=== PATIENT | female | born 1980 | race Caucasian/White ===

== ENCOUNTER 2016-09-17 13:23 | Emergency (ER) | payer MEDICAID ==
[2016-09-17 13:47] VITALS: BP 134/82
--- NOTE | 2016-09-17 13:54 | EDM.PDOC ---
ED HPI ENT - General Chief Complaint: ENT Problem Stated Complaint: RT EAR HURTS Time Seen by Provider: 09/17/16 13:36 Source of Information: Reports: Patient History Limitations: Reports: No limitations - History of Present Illness INITIAL COMMENTS - FREE TEXT/NARRATIVE: History of present illness: [35-year-old female coming in with complaints of right-sided ear pain. Patient indicates her whole jaw hurts and it radiates down into her neck.] Review of systems: As per history of present illness and below otherwise all systems reviewed and negative. Past medical history: As per history of present illness and as reviewed below otherwise noncontributory. Surgical history: As per history of present illness and as reviewed below otherwise noncontributory. Social history: No reported history of drug or alcohol abuse. Family history: As per history of present illness and as reviewed below otherwise noncontributory. Physical exam: HEENT: Atraumatic, normocephalic, pupils reactive, negative for conjunctival pallor or scleral icterus, mucous membranes moist right TM slightly reddened without bulging and continues to have light reflex small amount of cerumen noted to be pushing against the TM, throat clear, neck supple, nontender, trachea midline. Lungs: Clear to auscultation, breath sounds equal bilaterally, chest nontender. Heart: S1S2, regular, negative for clicks, rubs, or JVD. Abdomen: Soft, nondistended, nontender. Negative for masses or hepatosplenomegaly. Negative for costovertebral tenderness. Pelvis: Stable nontender. Genitourinary: Deferred. Rectal: Deferred. Extremities: Atraumatic, negative for cords or calf pain. Neurovascular unremarkable. Neuro: Awake, alert, oriented. Cranial nerves II through XII unremarkable. Cerebellum unremarkable. Motor and sensory unremarkable throughout. Exam nonfocal. Patient has numerous fractured teeth and fillings and has some amount of bilateral edema in her lower jaw, patient indicates any palpation to the jaw is painful also is unable to cooperate with the full quality oral exam due to inability/unwillingness to open mouth. Patient did specifically ask for Hollister for pain which is concerning secondary to her presentation seems to be diffuse and evolving during the exam. Diagnostics: [] Therapeutics: [] Impression: []-Right otitis externa, dental caries with possible abscess] Plan: [Antibiotics followup with] Definitive disposition and diagnosis as appropriate pending reevaluation and review of above. 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 Musculoskeletal History: "femoral-pateller pain syndrome" Psychiatric History: Reports: Anxiety Social & Family History - Family History Family Medical History: Noncontributory - Tobacco Use Smoking Status *Q: Current Every Day Smoker Years of Tobacco use: 10 Packs/Tins Daily: 1 - Recreational Drug Use Recreational Drug Use: No ED ROS ENT - Review of Systems Review Of Systems: See Below (See history of present illness) ED EXAM, ENT - Physical Exam Exam: See Below (History of present illness) Departure - Departure Time of Disposition: 13:55 Disposition: Home, Self-Care 01 Condition: good Clinical Impression: Otitis externa, Dental caries, Dental abscess Prescriptions: Amoxicillin/Potassium Clav [Augmentin 875-125 Tablet] 1 each PO BID #20 tablet Forms: ED Department Discharge Additional Instructions: The following information is given to patients seen in the emergency department who are being discharged to home. This information is to outline your options for follow-up care. We provide all patients seen in our emergency department with a follow-up referral. The need for follow-up, as well as the timing and circumstances, are variable depending upon the specifics of your emergency department visit. If you don't have a primary care physician on staff, we will provide you with a referral. We always advise you to contact your personal physician following an emergency department visit to inform them of the circumstance of the visit and for follow-up with them and/or the need for any referrals to a consulting specialist. The emergency department will also refer you to a specialist when appropriate. This referral assures that you have the opportunity for follow-up care with a specialist. All of these measure are taken in an effort to provide you with optimal care, which includes your follow-up. Under all circumstances we always encourage you to contact your private physician who remains a resource for coordinating your care. When calling for follow-up care, please make the office aware that this follow-up is from your recent emergency room visit. If for any reason you are refused follow-up, please contact the [facility] Emergency Department at and asked to speak to the emergency department charge nurse. Take medication as directed Followup with PCP in one to 2 days Turned ED as needed as discussed
== END 2016-09-17 14:08 | disposition home or self-care (01) ==
LOC: MW.ED 13:23
DX: H60.91 Unspecified otitis externa, right ear (principal); K02.9 Dental caries, unspecified; K04.7 Periapical abscess without sinus; F41.9 Anxiety disorder, unspecified; F17.210 Nicotine dependence, cigarettes, uncomplicated; Z79.899 Other long term (current) drug therapy; Z88.8 Allergy status to other drugs, medicaments and biological substances
CPT/HCPCS: 99282; 99283

== ENCOUNTER 2016-10-05 16:32 | Emergency (ER) | payer MEDICAID ==
[2016-10-05] MEDS ORDERED: Ketorolac 60 MG/2 ML SDV IM ONE (17:02)
--- NOTE | 2016-10-05 17:17 | EDM.PDOC ---
ED HISTORY OF PRESENT ILLNESS - General Chief Complaint: Respiratory Problem Stated Complaint: PT HAS FEVER AND LOWER BACK PAIN Time Seen by Provider: 10/05/16 16:53 Source of Information: Reports: Patient History Limitations: Reports: No limitations - History of Present Illness INITIAL COMMENTS - FREE TEXT/NARRATIVE: Presents to the emergency room reporting a 2 to three-day history of cough, fever and right back pain. Denies sore throat, dysuria. Family history of renal stones. She does smoke cigarettes. She did not take anything for her cough except Tylenol. 1gram Tylenol about 1600. 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 ED EXAM, GENERAL - Physical Exam Exam: See Below Exam Limited By: No limitations General Appearance: alert, mild distress (Due to cough) Ears: normal external exam, other (Left TM moderately pink and bulged) Ear Exam: left ear: TM dull, TM red, TM bulging Nose: normal inspection Throat/Mouth: Other (Mild oropharyngeal erythema) Head: atraumatic, normocephalic Neck: normal inspection. No: lymphadenopathy (L), lymphadenopathy (R) Respiratory/Chest: no respiratory distress, lungs clear, normal breath sounds, no accessory muscle use, other (Almost continuous harsh dry, hacking cough in exam room) Cardiovascular: normal peripheral pulses, regular rate, rhythm, no murmur GI/Abdominal: soft Back Exam: normal inspection Extremities: normal inspection Neurological: alert, oriented Psychiatric: normal affect, normal mood Skin Exam: Warm, Dry, Intact, Normal color, No rash Lymphatic: no adenopathy Course - Vital Signs Last Recorded V/S: Last Vital Signs Temp 38.5 C H 10/05/16 19:08 Pulse 96 10/05/16 19:08 Resp 16 10/05/16 19:08 BP 120/78 10/05/16 19:08 Pulse Ox 94 L 10/05/16 19:08 - Orders/Labs/Meds Orders: Active Orders 24 hr Category Date Time Status Abdomen Pelvis wo Cont [CT] Stat Exams 10/05/16 19:03 Taken CULTURE URINE [RM] Stat Lab 10/05/16 20:08 Uncollected Ciprofloxacin in D5W [Cipro in D5W 400 MG/200 ML] 400 Med 10/05/16 20:15 Ordered mg Premix Bag 1 bag IV Q12H Codeine/Promethazine [Phenergan with Codeine] Med 10/05/16 20:00 Active 5 ml PO Q4HR Medication Orders Ciprofloxacin/Dextrose 400 mg/ (Premix) 200 mls @ 200 mls/hr IV Q12H ONE Stop: 10/05/16 21:14 Last Admin: 10/05/16 20:19 Dose: 200 mls/hr Promethazine HCl/Codeine (Phenergan With Codeine) 5 ml PO Q4HR [facility] Last Admin: 10/05/16 18:58 Dose: 5 ml Labs: Laboratory Tests 10/05/16 10/05/16 10/05/16 Range/Units 17:30 17:30 17:30 WBC (4.0-11.0) K/uL RBC (4.30-5.90) M/uL Hgb (12.0-16.0) g/dL Hct (36.0-46.0) % MCV (80.0-98.0) fL MCH (27.0-32.0) pg MCHC (31.0-37.0) g/dL RDW Std Deviation (28.0-62.0) fl RDW Coeff of Elva (11.0-15.0) % Plt Count (150-400) K/uL MPV (7.40-12.00) fL Neut % (Auto) (48.0-80.0) % Lymph % (Auto) (16.0-40.0) % Galax % (Auto) (0.0-15.0) % Eos % (Auto) (0.0-7.0) % Baso % (Auto) (0.0-1.5) % Neut # (Auto) (1.4-5.7) K/uL Lymph # (Auto) (0.6-2.4) K/uL Galax # (Auto) (0.0-0.8) K/uL Eos # (Auto) (0.0-0.7) K/uL Baso # (Auto) (0.0-0.1) K/uL Nucleated RBC % /100WBC Nucleated RBCs # K/uL Sodium 135 L (136-146) mmol/L Potassium 3.9 (3.5-5.1) mmol/L Chloride 104 (98-110) mmol/L Carbon Dioxide 19 L (21-31) mmol/L BUN 5 L (6.0-23.0) mg/dL Creatinine 0.9 (0.6-1.5) mg/dL Est Cr Clr Drug Dosing 82.45 mL/min Estimated GFR (MDRD) > 60.0 ml/min Glucose 102 (60-110) mg/dL Calcium 8.7 L (8.8-10.8) mg/dL Total Bilirubin 0.6 (0.1-1.5) mg/dL AST 15 (5-40) IU/L ALT 12 (8-54) IU/L Alkaline Phosphatase 53 (40-150) Total Protein 6.8 (6.0-8.0) g/dL Albumin 3.8 (3.5-5.0) g/dL Globulin 3.0 (2.0-3.5) g/dL Albumin/Globulin Ratio 1.3 (1.3-2.8) Urine Color YELLOW Urine Appearance CLEAR Urine pH 6.0 (5.0-8.0) Ur Specific [place] 1.010 (1.001-1.035) Urine Protein NEGATIVE (NEGATIVE) mg/dL Urine Glucose (UA) NEGATIVE (NEGATIVE) mg/dL Urine Ketones NEGATIVE (NEGATIVE) mg/dL Urine Occult Blood LARGE H (NEGATIVE) Urine Nitrite NEGATIVE (NEGATIVE) Urine Bilirubin NEGATIVE (NEGATIVE) Urine Urobilinogen 0.2 (<2.0) EU/dL Ur Leukocyte Esterase NEGATIVE (NEGATIVE) Urine RBC 6-8 (0-2/HPF) Urine WBC 1-2 (0-5/HPF) Ur Epithelial Cells FEW (NONE-FEW) Urine Bacteria FEW (NEGATIVE) Urine HCG, Qual NEGATIVE (NEGATIVE) 10/05/16 Range/Units 18:08 WBC 20.04 H (4.0-11.0) K/uL RBC 4.12 L (4.30-5.90) M/uL Hgb 13.1 (12.0-16.0) g/dL Hct 38.8 (36.0-46.0) % MCV 94.2 (80.0-98.0) fL MCH 31.8 (27.0-32.0) pg MCHC 33.8 (31.0-37.0) g/dL RDW Std Deviation 43.8 (28.0-62.0) fl RDW Coeff of Elva 13 (11.0-15.0) % Plt Count 233 (150-400) K/uL MPV 11.00 (7.40-12.00) fL Neut % (Auto) 88.2 H (48.0-80.0) % Lymph % (Auto) 6.3 L (16.0-40.0) % Galax % (Auto) 5.2 (0.0-15.0) % Eos % (Auto) 0.1 (0.0-7.0) % Baso % (Auto) 0.2 (0.0-1.5) % Neut # (Auto) 17.7 H (1.4-5.7) K/uL Lymph # (Auto) 1.3 (0.6-2.4) K/uL Galax # (Auto) 1.0 H (0.0-0.8) K/uL Eos # (Auto) 0.0 (0.0-0.7) K/uL Baso # (Auto) 0.0 (0.0-0.1) K/uL Nucleated RBC % 0.0 /100WBC Nucleated RBCs # 0 K/uL Sodium (136-146) mmol/L Potassium (3.5-5.1) mmol/L Chloride (98-110) mmol/L Carbon Dioxide (21-31) mmol/L BUN (6.0-23.0) mg/dL Creatinine (0.6-1.5) mg/dL Est Cr Clr Drug Dosing mL/min Estimated GFR (MDRD) ml/min Glucose (60-110) mg/dL Calcium (8.8-10.8) mg/dL Total Bilirubin (0.1-1.5) mg/dL AST (5-40) IU/L ALT (8-54) IU/L Alkaline Phosphatase (40-150) Total Protein (6.0-8.0) g/dL Albumin (3.5-5.0) g/dL Globulin (2.0-3.5) g/dL Albumin/Globulin Ratio (1.3-2.8) Urine Color Urine Appearance Urine pH (5.0-8.0) Ur Specific [place] (1.001-1.035) Urine Protein (NEGATIVE) mg/dL Urine Glucose (UA) (NEGATIVE) mg/dL Urine Ketones (NEGATIVE) mg/dL Urine Occult Blood (NEGATIVE) Urine Nitrite (NEGATIVE) Urine Bilirubin (NEGATIVE) Urine Urobilinogen (<2.0) EU/dL Ur Leukocyte Esterase (NEGATIVE) Urine RBC (0-2/HPF) Urine WBC (0-5/HPF) Ur Epithelial Cells (NONE-FEW) Urine Bacteria (NEGATIVE) Urine HCG, Qual (NEGATIVE) Meds: Medications Generic Name Dose Route Start Last Admin Trade Name Freq PRN Reason Stop Dose Admin Ciprofloxacin/Dextrose 400 mg/ 200 mls @ 200 mls/hr 10/05/16 20:15 10/05/16 20:19 Premix IV 10/05/16 21:14 200 mls/hr Q12H ONE Administration Promethazine HCl/Codeine 5 ml 10/05/16 20:00 10/05/16 18:58 Phenergan With Codeine PO 5 ml Q4HR [id number] Administration Discontinued Medications Generic Name Dose Route Start Last Admin Trade Name Freq PRN Reason Stop Dose Admin Hydromorphone HCl 1 mg 10/05/16 18:21 10/05/16 18:31 Dilaudid IVPUSH 10/05/16 18:22 1 mg ONETIME ONE Administration Hydromorphone HCl 1 mg 10/05/16 19:41 10/05/16 19:49 Dilaudid IVPUSH 10/05/16 19:42 1 mg ONETIME ONE Administration Sodium Chloride 1,000 mls @ 999 mls/hr 10/05/16 18:19 10/05/16 18:35 Normal Saline IV 10/05/16 19:19 999 mls/hr STAT ONE Administration Sodium Chloride 1,000 mls @ 999 mls/hr 10/05/16 19:59 10/05/16 20:01 Normal Saline IV 10/05/16 20:59 999 mls/hr STAT ONE Administration Ibuprofen 600 mg 10/05/16 18:35 10/05/16 18:56 Motrin PO 10/05/16 18:36 600 mg ONETIME ONE Administration Ketorolac Tromethamine 60 mg 10/05/16 17:02 10/05/16 17:43 Toradol IM 10/05/16 17:03 Not Given ONETIME ONE Ondansetron HCl 4 mg 10/05/16 18:19 10/05/16 18:30 Zofran IVPUSH 10/05/16 18:20 4 mg ONETIME ONE Administration Departure - Departure Time of Disposition: 21:00 Disposition: Home, Self-Care 01 Condition: good Clinical Impression: Pyelonephritis, Bronchitis Forms: ED Department Discharge Additional Instructions: 1. Take your antibiotics twice day as directed 2. Cough syrup every 4-6 hours as needed for cough with driving precautions. This medication has codeine in it and can be taken as an alternative to the Wisner but not in addition to the Wisner. 3. Wisner one tab every 4 hours as needed for pain. This medication has been opioid in it and can be taken as an alternative to the cough syrup but not in addition to it. 4. Tylenol up to 3 grams daily for fever and discomfort. The Wisner has 325 mg in each tablet and must be figured into the total Tylenol dose for the day. 5. You will be called regarding your urine culture. 6. You may start taking the prednisone tomorrow for your severe cough and bronchitis. 6. Followup in primary care promptly for worsening or not improving symptoms, vomiting or fevers not relieved by Tylenol - My Orders Last 24 Hours: My Active Orders 10/05/16 19:03 Abdomen Pelvis wo Cont [CT] Stat 10/05/16 20:00 Codeine/Promethazine [Phenergan with Codeine] 5 ml PO Q4HR 10/05/16 20:08 CULTURE URINE [RM] Stat 10/05/16 20:15 Ciprofloxacin in D5W [Cipro in D5W 400 MG/200 ML] 400 mg Premix Bag 1 bag IV Q12H - Assessment/Plan Last 24 Hours: My Active Orders 10/05/16 19:03 Abdomen Pelvis wo Cont [CT] Stat 10/05/16 20:00 Codeine/Promethazine [Phenergan with Codeine] 5 ml PO Q4HR 10/05/16 20:08 CULTURE URINE [RM] Stat 10/05/16 20:15 Ciprofloxacin in D5W [Cipro in D5W 400 MG/200 ML] 400 mg Premix Bag 1 bag IV Q12H
[2016-10-05] MEDS ORDERED: Sodium Chloride 0.9% 1,000 ML IV ONE ×2 (18:19→19:59)
[2016-10-05] MEDS ORDERED: Ondansetron 4 MG/2 ML SDV IVPUSH ONE (18:19)
[2016-10-05] MEDS ORDERED: HYDROmorphone 2 MG/ML Syringe IVPUSH ONE (18:21)
[2016-10-05] MEDS ORDERED: Ibuprofen 600 MG Tab PO ONE (18:35)
[2016-10-05 19:05] LABS: CHLORIDE,CL 104 mmol/L (98-110); SODIUM,NA 135 mmol/L (136-146)
[2016-10-05] MEDS ORDERED: HYDROmorphone 1 MG/ML Syringe IVPUSH ONE (19:41)
[2016-10-05] MEDS ORDERED: Codeine/Promethazine 10-6.25 MG/5 ML Syrup 5 ML UD Cup PO SCH (20:00)
[2016-10-05] MEDS ORDERED: Ciprofloxacin in D5W 400 MG in Premix Bag 1 BAG IV ONE ×2 (20:15)
[2016-10-05 21:48] VITALS: BP 102/77
--- NOTE | 2016-10-06 11:07 | CT ---
EXAM DATE: 10/05/16 PATIENT'S AGE: 35 Patient: SUYAPA LIU Facility: [place], [place] Site . Site : [id number] Study: CT Abdomen/Pelvis [id number]/2/2017 7:42:49 PM Ordering Physician: Doctor Gonzales Final Report: INDICATION: hematuria, R flank pain, leukocytosis, fever ,cough TECHNIQUE: CT abdomen and pelvis without contrast. COMPARISON: None FINDINGS: Lower chest: Partially imaged nonspecific ground-glass opacity centrally in the imaged lungs. Liver: Unremarkable. Spleen: Unremarkable. Pancreas: Unremarkable. Gallbladder and bile ducts: Unremarkable. Kidneys: Unremarkable. No kidney or ureteral stones and no hydronephrosis. Adrenal glands: Unremarkable. GI tract: Moderate amount of stool. Appendix is normal. Vascular structures: Unremarkable. Lymph nodes: Unremarkable. Miscellaneous: Unremarkable. Trace free fluid within the pelvic cul-de-sac. Pelvic Organs: Unremarkable. 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 IMPRESSION: 1. No acute abnormality of the abdomen and pelvis. No urinary tract stones, hydronephrosis, or other cause for flank pain. 2. Partially imaged nonspecific ground-glass opacities within the imaged lung bases. Dictated by Vinicio Xiong MD @ 10/05/2016 7:59:30 PM Dictated by: Vinicio Xiong MD @ 10/05/2016 19:59:46 (Electronic Signature) Report Signed by Proxy. [facility]
== END 2016-10-05 21:46 | disposition home or self-care (01) ==
LOC: MW.ED 16:32
DX: N12 Tubulo-interstitial nephritis, not specified as acute or chronic (principal); J40 Bronchitis, not specified as acute or chronic; F41.9 Anxiety disorder, unspecified; F17.200 Nicotine dependence, unspecified, uncomplicated; Z88.8 Allergy status to other drugs, medicaments and biological substances; Z79.899 Other long term (current) drug therapy
CPT/HCPCS: 74176; 80053; 81001; 81025; 85025; 87086; 96361; 96365; 96375; 96376; 99284; A9270; J0744; J1170; J2405; J7040

== ENCOUNTER 2016-10-07 13:13 | Emergency (ER) | payer MEDICAID ==
[2016-10-07] MEDS ORDERED: Sodium Chloride 0.9% 1,000 ML IV ONE (13:38)
[2016-10-07] MEDS ORDERED: Ketorolac 30 MG/ML SDV IVPUSH ONE (13:38)
[2016-10-07] MEDS ORDERED: Morphine 2 MG/ML Syringe IVPUSH ONE (13:43)
--- NOTE | 2016-10-07 14:24 | EDM.PDOC ---
ED HPI GENERAL MEDICAL PROBLEM - General Chief Complaint: General Stated Complaint: LOWER BACK PAIN Time Seen by Provider: 10/07/16 13:40 Source of Information: Reports: Patient History Limitations: Reports: No limitations - History of Present Illness INITIAL COMMENTS - FREE TEXT/NARRATIVE: History of present illness: [35-year-old female comes in complaining of back pain and stomach pain from repeated coughing. She indicates that she was seen on Tuesday and given medication for A. pyelonephritis as well as bronchitis and that her back pain is worse and now her intercostal area is sore with each cough.] Review of systems: As per history of present illness and below otherwise all systems reviewed and negative. Past medical history: As per history of present illness and as reviewed below otherwise noncontributory. Surgical history: As per history of present illness and as reviewed below otherwise noncontributory. Social history: No reported history of drug or alcohol abuse. Family history: As per history of present illness and as reviewed below otherwise noncontributory. Physical exam: HEENT: Atraumatic, normocephalic, pupils reactive, negative for conjunctival pallor or scleral icterus, mucous membranes moist, throat clear, neck supple, nontender, trachea midline. Lungs: Clear to auscultation, breath sounds equal bilaterally, chest nontender. Heart: S1S2, regular, negative for clicks, rubs, or JVD. Abdomen: Soft, nondistended, nontender. Negative for masses or hepatosplenomegaly. Positive for costovertebral tenderness. Pelvis: Stable nontender. Genitourinary: Deferred. Rectal: Deferred. Extremities: Atraumatic, negative for cords or calf pain. Neurovascular unremarkable. Neuro: Awake, alert, oriented. Cranial nerves II through XII unremarkable. Cerebellum unremarkable. Motor and sensory unremarkable throughout. Exam nonfocal. Patient's global assessment was benign save subjective complaints of back pain and costochondral pain as noted in history of present illness. Patient had negative UA for 2 days ago and denies any sexual activity since that time so indicates there is no chance for prior to chest x- ray. Diagnostics: [CBC, CMP, lactic acid, chest x-ray] Therapeutics: [Working, Med-Neb] Impression: [Back pain, costochondritis] Plan: [Continue antibiotics and include an inhaler] Definitive disposition and diagnosis as appropriate pending reevaluation and review of above. Right Flank Pain Score (Numeric/FACES): 7 - Related Data Allergies Allergy/AdvReac Type Severity Reaction Status Date / Time ketorolac [From Toradol] Allergy Itching Verified 10/07/16 13:26 tramadol Allergy Rash Verified 10/07/16 13:26 Home Meds: Home Meds ClonazePAM [KlonoPIN] 0.5 mg PO BEDTIME 12/28/15 [History] FLUoxetine [PROzac] 60 mg PO DAILY 12/28/15 [History] Hydrocodone/Acetaminophen [[place] 5-325] 1 tab PO BID 12/28/15 [History] Pregabalin [Lyrica] 75 mg PO TID 09/17/16 [History] Ciprofloxacin HCl [Cipro] 500 mg PO BID #20 tablet 10/05/16 [Rx] predniSONE [Prednisone] 40 mg PO DAILY 5 Days 10/05/16 [Rx] Albuterol Sulfate [Proair Hfa] 2 puff IH Q6HR #1 hfa.aer.ad 10/07/16 [Rx] Inhaler, Assist Devices [Space Chamber Plus] 1 each ASDIRECTED #1 spacer 09/20 [Rx] Past Medical History [employer]GER [employer] History: Reports: Musculoskeletal History: Reports: Other (see below) Other Musculoskeletal History: "femoral-pateller pain syndrome" Neurological History: Reports: Other (see below) Other Neuro History: Nerve pain in legs Psychiatric History: Reports: Anxiety Social & Family History - Family History Family Medical History: Noncontributory - Tobacco Use Smoking Status *Q: Current Every Day Smoker Years of Tobacco use: 15 Packs/Tins Daily: 1 Second Hand Smoke Exposure: No - Caffeine Use Caffeine Use: Reports: Soda - Recreational Drug Use Recreational Drug Use: No ED ROS GENERAL - Review of Systems Review Of Systems: See Below (The history of present illness) ED EXAM, GENERAL - Physical Exam Exam: See Below (History of present illness) Course - Vital Signs Last Recorded V/S: Last Vital Signs Temp 36.6 C 10/07/16 14:26 Pulse 63 10/07/16 14:26 Resp 18 10/07/16 14:26 BP 108/62 10/07/16 14:26 Pulse Ox 97 10/07/16 14:26 - Orders/Labs/Meds Orders: Active Orders 24 hr Category Date Time Status RT Aerosol Therapy [RC] ASDIRECTED Care 10/07/16 15:16 Active Labs: Laboratory Tests 10/07/16 10/07/16 10/07/16 Range/Units 13:50 13:50 13:50 WBC 8.90 (4.0-11.0) K/uL RBC 4.18 L (4.30-5.90) M/uL Hgb 13.1 (12.0-16.0) g/dL Hct 40.1 (36.0-46.0) % MCV 95.9 (80.0-98.0) fL MCH 31.3 (27.0-32.0) pg MCHC 32.7 (31.0-37.0) g/dL RDW Std Deviation 45.8 (28.0-62.0) fl RDW Coeff of Elva 13 (11.0-15.0) % Plt Count 241 (150-400) K/uL MPV 10.80 (7.40-12.00) fL Neut % (Auto) 68.4 (48.0-80.0) % Lymph % (Auto) 26.1 (16.0-40.0) % Gates % (Auto) 4.4 (0.0-15.0) % Eos % (Auto) 0.8 (0.0-7.0) % Baso % (Auto) 0.3 (0.0-1.5) % Neut # (Auto) 6.1 H (1.4-5.7) K/uL Lymph # (Auto) 2.3 (0.6-2.4) K/uL Gates # (Auto) 0.4 (0.0-0.8) K/uL Eos # (Auto) 0.1 (0.0-0.7) K/uL Baso # (Auto) 0.0 (0.0-0.1) K/uL Nucleated RBC % 0.0 /100WBC Nucleated RBCs # 0 K/uL Lactate 0.8 (0.20-2.00) mmol/L Sodium 140 (136-146) mmol/L Potassium 4.3 (3.5-5.1) mmol/L Chloride 110 (98-110) mmol/L Carbon Dioxide 20 L (21-31) mmol/L BUN 6 (6.0-23.0) mg/dL Creatinine 0.8 (0.6-1.5) mg/dL Est Cr Clr Drug Dosing 92.76 mL/min Estimated GFR (MDRD) > 60.0 ml/min Glucose 92 (60-110) mg/dL Calcium 9.2 (8.8-10.8) mg/dL Total Bilirubin 0.4 (0.1-1.5) mg/dL AST 14 (5-40) IU/L ALT 14 (8-54) IU/L Alkaline Phosphatase 47 (40-150) Total Protein 6.9 (6.0-8.0) g/dL Albumin 3.8 (3.5-5.0) g/dL Globulin 3.1 (2.0-3.5) g/dL Albumin/Globulin Ratio 1.2 L (1.3-2.8) Meds: Medications Discontinued Medications Generic Name Dose Route Start Last Admin Trade Name Freq PRN Reason Stop Dose Admin Albuterol/Ipratropium 3 ml 10/07/16 15:16 10/07/16 15:48 Duoneb 3.0-0.5 Mg/3 Ml NEB 10/07/16 15:17 3 ml ONETIME ONE Administration Sodium Chloride 1,000 mls @ 999 mls/hr 10/07/16 13:38 10/07/16 14:00 Normal Saline IV 10/07/16 14:38 999 mls/hr STAT ONE Administration Ketorolac Tromethamine 30 mg 10/07/16 13:38 10/07/16 14:01 Toradol IVPUSH 10/07/16 13:39 Not Given ONETIME ONE Morphine Sulfate 2 mg 10/07/16 13:43 10/07/16 14:24 Morphine IVPUSH 10/07/16 13:44 2 mg ONETIME ONE Administration Departure - Departure Time of Disposition: 16:13 Disposition: Home, Self-Care 01 Condition: good Clinical Impression: Acute costochondritis, Back pain Prescriptions: Albuterol Sulfate [Proair Hfa] 2 puff IH Q6HR #1 hfa.aer.ad Inhaler, Assist Devices [Space Chamber Plus] 1 each ASDIRECTED #1 spacer Referrals: PCP,None [Primary Care Provider] - Forms: ED Department Discharge Additional Instructions: The following information is given to patients seen in the emergency department who are being discharged to home. This information is to outline your options for follow-up care. We provide all patients seen in our emergency department with a follow-up referral. The need for follow-up, as well as the timing and circumstances, are variable depending upon the specifics of your emergency department visit. If you don't have a primary care physician on staff, we will provide you with a referral. We always advise you to contact your personal physician following an emergency department visit to inform them of the circumstance of the visit and for follow-up with them and/or the need for any referrals to a consulting specialist. The emergency department will also refer you to a specialist when appropriate. This referral assures that you have the opportunity for follow-up care with a specialist. All of these measure are taken in an effort to provide you with optimal care, which includes your follow-up. Under all circumstances we always encourage you to contact your private physician who remains a resource for coordinating your care. When calling for follow-up care, please make the office aware that this follow-up is from your recent emergency room visit. If for any reason you are refused follow-up, please contact the [facility] Emergency Department at and asked to speak to the emergency department charge nurse. Use inhaler as directed Continue the antibiotics as previously prescribed Rest and hydrate Followup with PCP in one to 2 day Return to ED as needed as discussed - My Orders Last 24 Hours: My Active Orders 10/07/16 15:16 RT Aerosol Therapy [RC] ASDIRECTED - Assessment/Plan Last 24 Hours: My Active Orders 10/07/16 15:16 RT Aerosol Therapy [RC] ASDIRECTED
[2016-10-07 14:40] LABS: CHLORIDE,CL 110 mmol/L (98-110); SODIUM,NA 140 mmol/L (136-146)
[2016-10-07] MEDS ORDERED: Albuterol/Ipratropium 3.0-0.5 MG/3 ML Neb Soln NEB ONE (15:16)
--- NOTE | 2016-10-07 15:39 | CR ---
EXAMINATION: Two-view chest (PA and Lateral views). HISTORY: Cough. FINDINGS: The trachea is midline. The cardiomediastinal silhouette is within normal limits. No pulmonary infil trates, effusions or pneumothorax. Osseous structures appear unremarkable. IMPRESSION: No acute cardiopulmonary process.
[2016-10-07 16:31] VITALS: BP 112/67
== END 2016-10-07 16:25 | disposition home or self-care (01) ==
LOC: MW.ED 13:13
DX: M94.0 Chondrocostal junction syndrome [Tietze] (principal); M54.9 Dorsalgia, unspecified; F41.9 Anxiety disorder, unspecified; F17.210 Nicotine dependence, cigarettes, uncomplicated; Z79.899 Other long term (current) drug therapy; Z88.5 Allergy status to narcotic agent; Z88.6 Allergy status to analgesic agent
CPT/HCPCS: 36415; 71020; 80053; 83605; 85025; 94664; 96361; 96374; 99284; J2270; J7040

== ENCOUNTER 2017-01-05 18:43 | Emergency (ER) | payer MEDICAID ==
[2017-01-05] MEDS ORDERED: Sodium Chloride 0.9% 1,000 ML IV ONE (18:59)
[2017-01-05] MEDS ORDERED: Acetaminophen/HYDROcodone 325-10 MG Tab PO ONE (19:37)
--- NOTE | 2017-01-05 20:40 | EDM.PDOC ---
ED HPI GENERAL MEDICAL PROBLEM - General Chief Complaint: General Stated Complaint: PAIN KNEES Time Seen by Provider: 01/05/17 19:35 Source of Information: Reports: Patient History Limitations: Reports: No Limitations - History of Present Illness INITIAL COMMENTS - FREE TEXT/NARRATIVE: History of present illness: [36-year-old female comes in complaining of bilateral knee pain. Patient's indicates she has a history of patellofemoral syndrome and that she is having a flare.] Review of systems: As per history of present illness and below otherwise all systems reviewed and negative. Past medical history: As per history of present illness and as reviewed below otherwise noncontributory. Surgical history: As per history of present illness and as reviewed below otherwise noncontributory. Social history: No reported history of drug or alcohol abuse. Family history: As per history of present illness and as reviewed below otherwise noncontributory. Physical exam: HEENT: Atraumatic, normocephalic, pupils reactive, negative for conjunctival pallor or scleral icterus, mucous membranes moist, throat clear, neck supple, nontender, trachea midline. Lungs: Clear to auscultation, breath sounds equal bilaterally, chest nontender. Heart: S1S2, regular, negative for clicks, rubs, or JVD. Abdomen: Soft, nondistended, nontender. Negative for masses or hepatosplenomegaly. Negative for costovertebral tenderness. Pelvis: Stable nontender. Genitourinary: Deferred. Rectal: Deferred. Extremities: Atraumatic, negative for cords or calf pain. Neurovascular unremarkable. Neuro: Awake, alert, oriented. Cranial nerves II through XII unremarkable. Cerebellum unremarkable. Motor and sensory unremarkable throughout. Exam nonfocal. Global assessment is benign save the subjective complaint as noted in history of present illness Diagnostics: [] Therapeutics: [Norflex, IV fluid, Surprise] Impression: [Knee pain] Plan: [Brief run of pain medicine follow-up is being] Definitive disposition and diagnosis as appropriate pending reevaluation and review of above. 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: Musculoskeletal History: Reports: Other (See Below) Other Musculoskeletal History: "femoral-pateller pain syndrome" Neurological History: Reports: Other (See Below) Other Neuro History: Nerve pain in legs Psychiatric History: Reports: Anxiety - Infectious Disease History Infectious Disease History: Reports: Chicken Pox Social & Family History - Family History Family Medical History: Noncontributory - Tobacco Use Smoking Status *Q: Current Every Day Smoker Years of Tobacco use: 15 Packs/Tins Daily: 1 Second Hand Smoke Exposure: Yes - Caffeine Use Caffeine Use: Reports: Soda - Recreational Drug Use Recreational Drug Use: No ED ROS GENERAL - Review of Systems Review Of Systems: See Below (History of present illness) ED EXAM, GENERAL - Physical Exam Exam: See Below (See history of present illness) Course - Vital Signs Last Recorded V/S: Last Vital Signs Temp 37.0 C 01/05/17 20:15 Pulse 56 L 01/05/17 20:15 Resp 17 01/05/17 20:15 BP 116/67 01/05/17 20:15 Pulse Ox 99 01/05/17 20:15 - Orders/Labs/Meds Meds: Medications Discontinued Medications Generic Name Dose Route Start Last Admin Trade Name Kehinde PRN Reason Stop Dose Admin Hydrocodone Bitart/Acetaminophen 1 tab 01/05/17 19:37 01/05/17 19:46 [place] 325-10 Mg PO 01/05/17 19:38 1 tab ONETIME ONE Administration Sodium Chloride 1,000 mls @ 999 mls/hr 01/05/17 18:59 01/05/17 19:24 Normal Saline IV 01/05/17 19:59 999 mls/hr STAT ONE Administration Orphenadrine Citrate 60 mg 01/05/17 19:05 01/05/17 19:17 Norflex IM 01/05/17 19:06 60 mg ONETIME ONE Administration Departure - Departure Time of Disposition: 20:39 Disposition: Home, Self-Care 01 Condition: Good Clinical Impression: Bilateral knee pain - Discharge Information Forms: ED Department Discharge Additional Instructions: The following information is given to patients seen in the emergency department who are being discharged to home. This information is to outline your options for follow-up care. We provide all patients seen in our emergency department with a follow-up referral. The need for follow-up, as well as the timing and circumstances, are variable depending upon the specifics of your emergency department visit. If you don't have a primary care physician on staff, we will provide you with a referral. We always advise you to contact your personal physician following an emergency department visit to inform them of the circumstance of the visit and for follow-up with them and/or the need for any referrals to a consulting specialist. The emergency department will also refer you to a specialist when appropriate. This referral assures that you have the opportunity for follow-up care with a specialist. All of these measure are taken in an effort to provide you with optimal care, which includes your follow-up. Under all circumstances we always encourage you to contact your private physician who remains a resource for coordinating your care. When calling for follow-up care, please make the office aware that this follow-up is from your recent emergency room visit. If for any reason you are refused follow-up, please contact the [facility] Emergency Department at and asked to speak to the emergency department charge nurse. Take medication as directed All up with PCP as instructed in 1-2 days Return to ED as needed as discussed
[2017-01-05 21:04] VITALS: BP 117/78
== END 2017-01-05 21:02 | disposition home or self-care (01) ==
LOC: MW.ED 18:43
DX: M25.562 Pain in left knee (principal); M25.561 Pain in right knee; F17.210 Nicotine dependence, cigarettes, uncomplicated; F41.9 Anxiety disorder, unspecified; Z79.899 Other long term (current) drug therapy; Z88.5 Allergy status to narcotic agent; Z88.6 Allergy status to analgesic agent
CPT/HCPCS: 96360; 96372; 99283; A9270; J2360; J7040

== ENCOUNTER 2017-05-08 13:46 | Emergency (ER) | payer MEDICAID ==
[2017-05-08 14:14] VITALS: BP 120/74
[2017-05-08] MEDS ORDERED: Naproxen 500 MG Tab PO ONE (14:23)
--- NOTE | 2017-05-08 15:02 | EDM.PDOC ---
ED HPI GENERAL MEDICAL PROBLEM - General Chief Complaint: Lower Extremity Injury/Pain Stated Complaint: RIGHT LEG PAIN Time Seen by Provider: 05/08/17 13:57 Source of Information: Reports: Patient History Limitations: Reports: No Limitations - History of Present Illness INITIAL COMMENTS - FREE TEXT/NARRATIVE: History of present illness: []Patient has chronic patellofemoral syndrome and states that she's been on her feet more than normal last 2 days and her right knee hurts more than normal. Denies any trauma. Patient points to the back of her knee and lateral from the thigh to the calf stating that it hurts Review of systems: As per history of present illness and below otherwise all systems reviewed and negative. Past medical history: As per history of present illness and as reviewed below otherwise noncontributory. Surgical history: As per history of present illness and as reviewed below otherwise noncontributory. Social history: No reported history of drug or alcohol abuse. Family history: As per history of present illness and as reviewed below otherwise noncontributory. Physical exam: General: Well developed, well nourished in NAD HEENT: Atraumatic, normocephalic, pupils reactive, negative for conjunctival pallor or scleral icterus, mucous membranes moist, throat clear, neck supple, nontender, trachea midline. Lungs: Clear to auscultation, breath sounds equal bilaterally, chest nontender. Heart: S1S2, regular, negative for clicks, rubs, or JVD. Abdomen: Soft, nondistended, nontender. Negative for masses or hepatosplenomegaly. Negative for costovertebral tenderness. Pelvis: Stable nontender. Genitourinary: Deferred. Rectal: Deferred. Extremities: Atraumatic, no edema range of motion no laxity negative for cords or calf pain. Neurovascular unremarkable. Neuro: Awake, alert, oriented. Cranial nerves II through XII unremarkable. Cerebellum unremarkable. Motor and sensory unremarkable throughout. Exam nonfocal. Diagnostics: []Ultrasound and x-rays of right knee are negative Therapeutics: [] Impression: []Chronic right knee pain Plan: []Follow-up with orthopedics Definitive disposition and diagnosis as appropriate pending reevaluation and review of above. Right Leg Pain Score (Numeric/FACES): 7 - Related Data Allergies Allergy/AdvReac Type Severity Reaction Status Date / Time ketorolac [From Toradol] Allergy Itching Verified 05/08/17 14:14 tramadol Allergy Rash Verified 05/08/17 14:14 Home Meds: Home Meds ClonazePAM [KlonoPIN] 0.5 mg PO BID 12/28/15 [History] FLUoxetine [PROzac] 60 mg PO DAILY 12/28/15 [History] Past Medical History - Past Health History Medical/Surgical History: Denies Medical/Surgical History [employer] History: Reports: Musculoskeletal History: Reports: Other (See Below) Other Musculoskeletal History: "femoral-pateller pain syndrome" Neurological History: Reports: Other (See Below) Other Neuro History: Nerve pain in legs Psychiatric History: Reports: Anxiety - Infectious Disease History Infectious Disease History: Reports: Chicken Pox Social & Family History - Family History Family Medical History: Noncontributory - Tobacco Use Smoking Status *Q: Current Every Day Smoker Years of Tobacco use: 15 Packs/Tins Daily: 1 Second Hand Smoke Exposure: Yes - Caffeine Use Caffeine Use: Reports: Soda - Recreational Drug Use Recreational Drug Use: No Review of Systems - Review of Systems Review Of Systems: See Below (See history of present illness) ED EXAM, GENERAL - Physical Exam Exam: See Below (See history of present illness) Course - Vital Signs Last Recorded V/S: Last Vital Signs Temp 99.4 F 05/08/17 14:11 Pulse 91 05/08/17 14:11 Resp 18 05/08/17 14:11 BP 120/74 05/08/17 14:11 Pulse Ox 98 05/08/17 14:11 - Orders/Labs/Meds Orders: Active Orders 24 hr Category Date Time Status Knee 3V Rt [CR] Stat Exams 05/08/17 14:23 Taken Venous Doppler Lwr Ext Rt [US] Stat Exams 05/08/17 14:18 Taken Meds: Medications Discontinued Medications Generic Name Dose Route Start Last Admin Trade Name Freq PRN Reason Stop Dose Admin Naproxen 500 mg 05/08/17 14:23 05/08/17 15:27 Naprosyn PO 05/08/17 14:24 500 mg ONETIME ONE Administration Departure - Departure Time of Disposition: 15:57 Disposition: Home, Self-Care 01 Condition: Good Clinical Impression: Chronic pain of right knee - Discharge Information Referrals: Paulino Hernandez PA [Primary Care Provider] - Forms: ED Department Discharge Additional Instructions: The following information is given to patients seen in the emergency department who are being discharged to home. This information is to outline your options for follow-up care. We provide all patients seen in our emergency department with a follow-up referral. The need for follow-up, as well as the timing and circumstances, are variable depending upon the specifics of your emergency department visit. If you don't have a primary care physician on staff, we will provide you with a referral. We always advise you to contact your personal physician following an emergency department visit to inform them of the circumstance of the visit and for follow-up with them and/or the need for any referrals to a consulting specialist. The emergency department will also refer you to a specialist when appropriate. This referral assures that you have the opportunity for follow-up care with a specialist. All of these measure are taken in an effort to provide you with optimal care, which includes your follow-up. Under all circumstances we always encourage you to contact your private physician who remains a resource for coordinating your care. When calling for follow-up care, please make the office aware that this follow-up is from your recent emergency room visit. If for any reason you are refused follow-up, please contact the [facility] Emergency Department at and asked to speak to the emergency department charge nurse. Follow-up with your primary doctor. I recommend requesting physical therapy can also follow up with orthopedic surgeon. [facility] [address] [place] [id number] [facility] - Orthopedic Clinic Professional Building [address] [place] [address], [address] [place] [address] - My Orders Last 24 Hours: My Active Orders 05/08/17 14:18 Venous Doppler Lwr Ext Rt [US] Stat 05/08/17 14:23 Knee 3V Rt [CR] Stat - Assessment/Plan Last 24 Hours: My Active Orders 05/08/17 14:18 Venous Doppler Lwr Ext Rt [US] Stat 12/03/17 14:23 Knee 3V Rt [CR] Stat
--- NOTE | 2017-05-09 15:57 | US ---
EXAM DATE: 05/08/17 PATIENT'S AGE: 36 Patient: SUYAPA LIU Facility: [place], [place] Site . Site : 1980 Study: US Extremity Venous Right-05/08/2017 3:05:40 PM Ordering Physician: Jeremiah Carrero Final Report: INDICATION: Pain. TECHNIQUE: Ultrasound venous duplex lower right extremity. Compression venous exam was performed using mccullough-scale, color Doppler, and spectral Doppler imaging. COMPARISON: None. FINDINGS: Sonographic imaging demonstrates the visualized right common femoral, deep femoral, femoral, popliteal, posterior tibial and greater saphenous and the contralateral left common femoral veins to be fully compressible with normal color Doppler blood flow. No Hummel`s cyst. IMPRESSION: 1. No right lower extremity DVT. 2. No Hummel`s cyst. Dictated by Ambrose Mg MD @ 05/08/2017 3:38:25 PM Dictated by: Ambrose Mg MD @ 05/08/2017 15:38:37 (Electronic Signature) Report Signed by Proxy. RACHNA
--- NOTE | 2017-05-09 15:58 | CR ---
EXAM DATE: 05/08/17 PATIENT'S AGE: 36 Patient: SUYAPA LIU Facility: [place], [place] Site . Site : 1980 Study: XRay Knee Right [id number]/3/[id number] 3:10:30 PM Ordering Physician: Jeremiah Carrero Final Report: INDICATION: Pain. FINDINGS: Three views of the left knee were obtained. There is no fracture seen or dislocation. There is no joint effusion. The joint space compartments are maintained. IMPRESSION: No acute bone abnormality. Dictated by Kranthi Burton MD @ 05/08/2017 3:39:05 PM Dictated by: Kranthi Burton MD @ 05/08/2017 15:39:13 (Electronic Signature) Report Signed by Proxy. RACHNA
== END 2017-05-08 16:17 | disposition home or self-care (01) ==
LOC: MW.ED 13:46
DX: M25.561 Pain in right knee (principal); G89.29 Other chronic pain; Z79.899 Other long term (current) drug therapy; Z88.6 Allergy status to analgesic agent; Z88.5 Allergy status to narcotic agent
CPT/HCPCS: 73562; 93971; 99284; A9270; 99282

== ENCOUNTER 2017-09-04 17:01 | Emergency (ER) | payer MEDICAID ==
[2017-09-04] MEDS ORDERED: Ondansetron 4 MG/2 ML SDV IVPUSH ONE (17:14)
[2017-09-04] MEDS ORDERED: Sodium Chloride 0.9% 1,000 ML IV ONE ×2 (17:14→19:44)
--- NOTE | 2017-09-04 17:20 | EDM.PDOC ---
ED HPI GENERAL MEDICAL PROBLEM - General Chief Complaint: General Stated Complaint: VOMITING/DIZZY Time Seen by Provider: 09/04/17 17:10 Source of Information: Reports: Patient History Limitations: Reports: No Limitations - History of Present Illness INITIAL COMMENTS - FREE TEXT/NARRATIVE: HISTORY AND PHYSICAL: History of present illness: [Is brought to the emergency room by her mom with complaints of dizziness and nausea. Patient states that she slipped on some ice in a grocery store parking lot and fell, hitting the back of her head on the frame of her truck. Last night she developed some mild dizziness, which has continued into today, but has gotten much worse. He complains of nausea but she rates as 8 out of 10. No fever or chills, no recent illness or infection. Denies chest pain shortness of breath and difficulty breathing. No abdominal pain or vomiting. No change to bowel or bladder. No burning with urination or hematuria. Denies blurred vision double vision and loss of vision. No weakness, numbness or tingling. She denies any headache and pain. Admits to history of anxiety that is well controlled with clonazepam when necessary. She is on a pain contract for hydrocodone with Ashly Lopez at the [facility]. Denies any other chronic medical conditions. Mom gave one dose of Dramamine prior to ER arrival, which didn't provide any improvement. Mom has a history of brain aneurysm requiring clipping in 2016. She is present at patients bedside. Patient has had a normal head CT that was ordered by primary care to check for aneurysm. Review of systems: As per history of present illness and below otherwise all systems reviewed and negative. Past medical history: As per history of present illness and as reviewed below otherwise noncontributory. Surgical history: As per history of present illness and as reviewed below otherwise noncontributory. Social history: No reported history of drug or alcohol abuse. Family history: As per history of present illness and as reviewed below otherwise noncontributory. Physical exam: HEENT: Atraumatic, normocephalic. Tender with palpation over the occipital scalp but no swelling is appreciated. PERRLA. EOMI. Oral mucous membranes are pink and moist. Throat is clear. Neck supple, no lymphadenopathy or carotid bruit. Lungs: Clear to auscultation, breath sounds equal bilaterally. Heart: S1S2, regular rate and rhythm. Abdomen: Soft, nondistended, nontender. Negative for masses, guarding or rebound. Pelvis: Stable nontender. Genitourinary: Deferred. Rectal: Deferred. Extremities: Atraumatic, no cyanosis or edema to feet or lower legs. Neurovascular unremarkable. Neuro: Awake, alert, oriented. Cranial nerves II through XII unremarkable. Cerebellum unremarkable. Motor and sensory unremarkable throughout. Exam nonfocal. Diagnostics: [CBC, CMP, UA, urine , head CT] Therapeutics: [Zofran 4mg IV, meclizine 25 mg by mouth, 1 liter NS] Impression: [Dizziness] Plan: [Patient's nausea is completely resolved after 1 dose of Zofran. Labs are unremarkable. head CT shows no abnormality. Patient will be discharged home with prescriptions for Zofran 4 mg #10 sig one by mouth every 8 hours as needed for nausea 0 refills, and meclizine 25 mg #20 sig one by mouth every 6 hours as needed for dizziness 0 refills. Strict return precautions are reviewed with patient. She is in agreement with today's plan.] Definitive disposition and diagnosis as appropriate pending reevaluation and review of above. 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: Musculoskeletal History: Reports: Other (See Below) Other Musculoskeletal History: "femoral-pateller pain syndrome" Neurological History: Reports: Other (See Below) Other Neuro History: Nerve pain in legs Psychiatric History: Reports: Anxiety - Infectious Disease History Infectious Disease History: Reports: Chicken Pox Social & Family History - Family History Family Medical History: Noncontributory - Tobacco Use Smoking Status *Q: Current Every Day Smoker Years of Tobacco use: 15 Packs/Tins Daily: 1 Second Hand Smoke Exposure: Yes - Caffeine Use Caffeine Use: Reports: Soda - Recreational Drug Use Recreational Drug Use: No ED ROS GENERAL - Review of Systems Review Of Systems: ROS reveals no pertinent complaints other than HPI. ED EXAM, GENERAL - Physical Exam Exam: See Below Course - Vital Signs Last Recorded V/S: Last Vital Signs Temp 98.0 F 09/04/17 17:06 Pulse 111 H 09/04/17 18:24 Resp 18 09/04/17 18:24 BP 119/72 09/04/17 18:24 Pulse Ox 98 09/04/17 18:24 - Orders/Labs/Meds Orders: Active Orders 24 hr Category Date Time Status Head wo Cont [CT] Stat Exams 09/04/17 17:04 Taken HCG QUALITATIVE,URINE [URCHEM] Stat Lab 09/04/17 18:15 Ordered UA W/MICROSCOPIC [URIN] Stat Lab 09/04/17 18:15 Ordered Meclizine [Antivert] Med 09/04/17 19:42 Once 25 mg PO ONETIME ONE Labs: Laboratory Tests 09/04/17 09/04/17 09/04/17 Range/Units 17:28 17:28 18:15 WBC 10.65 (4.0-11.0) K/uL RBC 4.56 (4.30-5.90) M/uL Hgb 14.0 (12.0-16.0) g/dL Hct 41.7 (36.0-46.0) % MCV 91.4 (80.0-98.0) fL MCH 30.7 (27.0-32.0) pg MCHC 33.6 (31.0-37.0) g/dL RDW Std Deviation 43.1 (28.0-62.0) fl RDW Coeff of Elva 13 (11.0-15.0) % Plt Count 263 (150-400) K/uL MPV 10.60 (7.40-12.00) fL Neut % (Auto) 85.8 H (48.0-80.0) % Lymph % (Auto) 11.5 L (16.0-40.0) % Rowan % (Auto) 2.3 (0.0-15.0) % Eos % (Auto) 0.2 (0.0-7.0) % Baso % (Auto) 0.2 (0.0-1.5) % Neut # (Auto) 9.1 H (1.4-5.7) K/uL Lymph # (Auto) 1.2 (0.6-2.4) K/uL Rowan # (Auto) 0.3 (0.0-0.8) K/uL Eos # (Auto) 0.0 (0.0-0.7) K/uL Baso # (Auto) 0.0 (0.0-0.1) K/uL Nucleated RBC % 0.0 /100WBC Nucleated RBCs # 0 K/uL Sodium 136 (136-145) mmol/L Potassium 3.7 (3.5-5.1) mmol/L Chloride 103 (98-107) mmol/L Carbon Dioxide 24.2 (21.0-32.0) mmol/L BUN 14 (7.0-18.0) mg/dL Creatinine 1.0 (0.6-1.0) mg/dL Est Cr Clr Drug Dosing TNP Estimated GFR (MDRD) > 60.0 ml/min Glucose 98 (74-106) mg/dL Calcium 9.0 (8.5-10.1) mg/dL Total Bilirubin 0.2 (0.2-1.0) mg/dL AST 14 L (15-37) IU/L ALT 15 (14-63) IU/L Alkaline Phosphatase 52 (46-116) U/L Total Protein 7.1 (6.4-8.2) g/dL Albumin 3.4 (3.4-5.0) g/dL Globulin 3.7 H (2.0-3.5) g/dL Albumin/Globulin Ratio 0.9 L (1.3-2.8) Urine Color YELLOW Urine Appearance HAZY Urine pH 7.5 (5.0-8.0) Ur Specific [place] 1.015 (1.001-1.035) Urine Protein NEGATIVE (NEGATIVE) mg/dL Urine Glucose (UA) NEGATIVE (NEGATIVE) mg/dL Urine Ketones NEGATIVE (NEGATIVE) mg/dL Urine Occult Blood MODERATE (NEGATIVE) Urine Nitrite NEGATIVE (NEGATIVE) Urine Bilirubin NEGATIVE (NEGATIVE) Urine Urobilinogen 0.2 (<2.0) EU/dL Ur Leukocyte Esterase NEGATIVE (NEGATIVE) Urine RBC 0-3 (0-2/HPF) Urine WBC 0-1 (0-5/HPF) Ur Epithelial Cells RARE (NONE-FEW) Urine Bacteria RARE (NEGATIVE) Urine HCG, Qual (NEGATIVE) 09/04/17 Range/Units 18:15 WBC (4.0-11.0) K/uL RBC (4.30-5.90) M/uL Hgb (12.0-16.0) g/dL Hct (36.0-46.0) % MCV (80.0-98.0) fL MCH (27.0-32.0) pg MCHC (31.0-37.0) g/dL RDW Std Deviation (28.0-62.0) fl RDW Coeff of Elva (11.0-15.0) % Plt Count (150-400) K/uL MPV (7.40-12.00) fL Neut % (Auto) (48.0-80.0) % Lymph % (Auto) (16.0-40.0) % Rowan % (Auto) (0.0-15.0) % Eos % (Auto) (0.0-7.0) % Baso % (Auto) (0.0-1.5) % Neut # (Auto) (1.4-5.7) K/uL Lymph # (Auto) (0.6-2.4) K/uL Rowan # (Auto) (0.0-0.8) K/uL Eos # (Auto) (0.0-0.7) K/uL Baso # (Auto) (0.0-0.1) K/uL Nucleated RBC % /100WBC Nucleated RBCs # K/uL Sodium (136-145) mmol/L Potassium (3.5-5.1) mmol/L Chloride (98-107) mmol/L Carbon Dioxide (21.0-32.0) mmol/L BUN (7.0-18.0) mg/dL Creatinine (0.6-1.0) mg/dL Est Cr Clr Drug Dosing Estimated GFR (MDRD) ml/min Glucose (74-106) mg/dL Calcium (8.5-10.1) mg/dL Total Bilirubin (0.2-1.0) mg/dL AST (15-37) IU/L ALT (14-63) IU/L Alkaline Phosphatase (46-116) U/L Total Protein (6.4-8.2) g/dL Albumin (3.4-5.0) g/dL Globulin (2.0-3.5) g/dL Albumin/Globulin Ratio (1.3-2.8) Urine Color Urine Appearance Urine pH (5.0-8.0) Ur Specific [place] (1.001-1.035) Urine Protein (NEGATIVE) mg/dL Urine Glucose (UA) (NEGATIVE) mg/dL Urine Ketones (NEGATIVE) mg/dL Urine Occult Blood (NEGATIVE) Urine Nitrite (NEGATIVE) Urine Bilirubin (NEGATIVE) Urine Urobilinogen (<2.0) EU/dL Ur Leukocyte Esterase (NEGATIVE) Urine RBC (0-2/HPF) Urine WBC (0-5/HPF) Ur Epithelial Cells (NONE-FEW) Urine Bacteria (NEGATIVE) Urine HCG, Qual NEGATIVE (NEGATIVE) Meds: Medications Discontinued Medications Generic Name Dose Route Start Last Admin Trade Name Freq PRN Reason Stop Dose Admin Sodium Chloride 1,000 mls @ 999 mls/hr 09/04/17 17:14 09/04/17 17:37 Normal Saline IV 09/04/17 18:14 Not Given STAT ONE Ondansetron HCl 4 mg 09/04/17 17:14 09/04/17 17:31 Zofran IVPUSH 09/04/17 17:15 4 mg ONETIME ONE Administration Departure - Departure Time of Disposition: 19:50 Disposition: Home, Self-Care 01 Condition: Good Clinical Impression: Dizziness - Discharge Information Referrals: PCP,None [Primary Care Provider] - Forms: ED Department Discharge Additional Instructions: The following information is given to patients seen in the emergency department who are being discharged to home. This information is to outline your options for follow-up care. We provide all patients seen in our emergency department with a follow-up referral. The need for follow-up, as well as the timing and circumstances, are variable depending upon the specifics of your emergency department visit. If you don't have a primary care physician on staff, we will provide you with a referral. We always advise you to contact your personal physician following an emergency department visit to inform them of the circumstance of the visit and for follow-up with them and/or the need for any referrals to a consulting specialist. The emergency department will also refer you to a specialist when appropriate. This referral assures that you have the opportunity for follow-up care with a specialist. All of these measure are taken in an effort to provide you with optimal care, which includes your follow-up. Under all circumstances we always encourage you to contact your private physician who remains a resource for coordinating your care. When calling for follow-up care, please make the office aware that this follow-up is from your recent emergency room visit. If for any reason you are refused follow-up, please contact the [facility] emergency department at and asked to speak to the emergency department charge nurse. [facility] [address] [place] [id number] Follow up with your primary care provider or at the clinic listed above in 48- 72 hours. Take medications as prescribed. Push fluids. Return to ER as needed as discussed. - My Orders Last 24 Hours: My Active Orders 09/04/17 17:04 Head wo Cont [CT] Stat 09/04/17 18:15 HCG QUALITATIVE,URINE [URCHEM] Stat UA W/MICROSCOPIC [URIN] Stat 09/04/17 19:42 Meclizine [Antivert] 25 mg PO ONETIME ONE - Assessment/Plan Last 24 Hours: My Active Orders 09/04/17 17:04 Head wo Cont [CT] Stat 09/04/17 18:15 HCG QUALITATIVE,URINE [URCHEM] Stat UA W/MICROSCOPIC [URIN] Stat 09/04/17 19:42 Meclizine [Antivert] 25 mg PO ONETIME ONE
[2017-09-04 17:55] LABS: CHLORIDE,CL 103 mmol/L (98-107); SODIUM,NA 136 mmol/L (136-145)
[2017-09-04] MEDS ORDERED: Meclizine 25 MG Tab PO ONE (19:42)
[2017-09-05 01:55] VITALS: BP 127/71
--- NOTE | 2017-09-05 13:39 | CT ---
EXAM DATE: 09/04/17 PATIENT'S AGE: 36 Patient: SUYAPA LIU Facility: [place], [place] Site . Site : 1980 Study: CT Head [id number]/1/2018 6:46:37 PM Ordering Physician: Doctor Gonzales Final Report: INDICATION: Dizziness, nausea and vomiting. TECHNIQUE: Standard noncontrast head CT performed. FINDINGS: There is no intracranial hemorrhage or fluid collection. The mccullough-white matter differentiation is maintained. The ventricles are of normal size and morphology. The basal cisterns are clear. A large mucous retention cyst is present in the left maxillary sinus. The visualized orbits and mastoids are unremarkable. The calvarium is intact. IMPRESSION: No acute intracranial abnormality. Please note that all CT scans at this facility use dose modulation, iterative reconstruction, and/or weight-based dosing when appropriate to reduce radiation dose to as low as reasonably achievable. Dictated by Reggie Mckenna MD @ Sep 04 2017 7:04PM (Electronic Signature) Report Signed by Proxy. RACHNA
== END 2017-09-04 20:58 | disposition home or self-care (01) ==
LOC: MW.ED 17:01
DX: R42 Dizziness and giddiness (principal); Z88.5 Allergy status to narcotic agent; F17.210 Nicotine dependence, cigarettes, uncomplicated
CPT/HCPCS: 36415; 70450; 80053; 81001; 81025; 85025; 96361; 96374; 99284; A9270; J2405; J7040; 99283

== ENCOUNTER 2017-10-17 07:35 | Day surgery (SDC) | payer MEDICAID, OTHER ==
[~2017-10-17 07:35] MED LIST: Bupivacaine 0.25% 10 ML SDV ONE; Fluorescein 5 ML Vial ONE; Lidocaine 2% 5 ML SDV ONE; Methylene Blue 50 MG/10 ML Ampule ONE; Midazolam 1 MG/ML 2 ML SDV ONE; Octyl 2-Cyanoacrylate 1 Tube ONE; Ondansetron 4 MG/2 ML SDV ONE; Propofol 200 MG/20 ML SDV ONE; Rocuronium 10 MG/ML 10 ML Syringe ONE; Sodium Chloride 0.9% 10 ML Syringe FLUSH PRN; Sodium Chloride 0.9% 2.5 ML Syringe FLUSH PRN; ceFAZolin 2 GM in Premix Bag 1 BAG IV ONE
[2017-10-17] MEDS ORDERED: fentaNYL 250 MCG/5 ML SDV ONE (07:36)
[2017-10-17] MEDS ORDERED: Midazolam 1 MG/ML 2 ML SDV IVPUSH ONE (08:11)
--- NOTE | 2017-10-17 08:11 | PCM.PREANE ---
Preanesthetic Assessment - Anesthesia/Transfusion/Family Hx Anesthesia History: Prior Anesthesia Without Reaction Family History of Anesthesia Reaction: No Transfusion History: No Prior Transfusion(s) - Review of Systems General: No Symptoms Pulmonary: No Symptoms Gastrointestinal: Abdominal Pain Neurological: Other (chronic pain abdominqal and lowert extremity, hyperalgesia) Other: Reports: Anxiety - Physical Assessment O2 Sat by Pulse Oximetry: 99 Respiratory Rate: 16 Vital Signs: Last Vital Signs Temp 36.6 C 10/17/17 07:44 Pulse 83 10/17/17 07:44 Resp 16 10/17/17 07:44 BP 125/80 10/17/17 07:44 Pulse Ox 99 10/17/17 07:44 Height: 1.68 m Weight: 86.183 kg ASA Class: 2 Mental Status: Alert & Oriented x3 Airway Class: Mallampati = 1 Dentition: Reports: Normal Dentition ROM/Head Extension: Full Lungs: Clear to Auscultation, Normal Respiratory Effort Cardiovascular: Regular Rate, Regular Rhythm - Allergies Allergies/Adverse Reactions: Allergies Allergy/AdvReac Type Severity Reaction Status Date / Time ketorolac [From Toradol] Allergy Itching Verified 10/17/17 07:55 tramadol Allergy Rash Verified 10/17/17 07:55 - Anesthesia Plan Pre-Op Medication Ordered: Anxiolytic (denies MALLY, but has risk factors: hyperalgesia, gabipentum, clonazepan, and not post op narcotics) - Acknowledgements Anesthesia Type Planned: General Anesthesia Pt an Appropriate Candidate for the Planned Anesthesia: Yes Alternatives and Risks of Anesthesia Discussed w Pt/Guardian: Yes Pt/Guardian Understands and Agrees with Anesthesia Plan: Yes PreAnesthesia Questionnaire - Past Health History Medical/Surgical History: Denies Medical/Surgical History HEENT History: Reports: Other (See Below) Other HEENT History: wears glasses/contacts Gastrointestinal History: Reports: Other (See Below) Other Gastrointestinal History: occasional heartburn Genitourinary History: Reports: Pyelonephritis, UTI, Recurrent 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: Musculoskeletal History: Reports: Fracture Other Musculoskeletal History: hx fx wrist Neurological History: Reports: Other (See Below) Other Neuro History: Nerve pain in legs, 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 Psychiatric History: Reports: Anxiety, Depression - Infectious Disease History Infectious Disease History: Reports: Chicken Pox - Past Surgical History Head Surgeries/Procedures: Reports: None HEENT Surgical History: Reports: Oral Surgery Musculoskeletal Surgical History: Reports: Arthroscopic Knee - SUBSTANCE USE Smoking Status *Q: Current Every Day Smoker Tobacco Use Within Last Twelve Months: Cigarettes Second Hand Smoke Exposure: Yes Recreational Drug Use History: No - HOME MEDS Home Medications: Home Meds ClonazePAM [KlonoPIN] 0.5 mg PO BID 12/28/15 [History] Acetaminophen/HYDROcodone [[place] 325-5 MG] 1 tab PO ASDIRECTED PRN 10/12/17 [ History] Acetaminophen/oxyCODONE [Percocet 325-10 MG] 1 tab PO ASDIRECTED PRN 10/12/17 [ History] Gabapentin [Neurontin] 300 mg PO QID 10/12/17 [History] Naproxen 1 tab PO BID PRN 10/12/17 [History] Venlafaxine [Effexor XR] 50 mg PO DAILY 10/12/17 [History] - CURRENT (IN HOUSE) MEDS Current Meds: Current Medications Sodium Chloride (Saline Flush) 10 ml FLUSH ASDIRECTED PRN PRN Reason: Keep Vein Open Sodium Chloride (Saline Flush) 2.5 ml FLUSH ASDIRECTED PRN PRN Reason: Keep Vein Open Discontinued Medications Bupivacaine HCl (Sensorcaine-Mpf 0.25%) Confirm Administered Dose 30 ml .ROUTE .STK-MED ONE Stop: 10/17/17 07:30 Fentanyl (Sublimaze) Confirm Administered Dose 250 mcg .ROUTE .STK-MED ONE Stop: 10/17/17 07:37 Fluorescein Sodium (Ak-Fluor) Confirm Administered Dose 5 ml .ROUTE .STK-MED ONE Stop: 10/17/17 07:31 Cefazolin Sodium/Dextrose 2 gm (/ Premix) 50 mls @ 100 mls/hr IV ONETIME ONE Stop: 10/17/17 05:29 Lidocaine (Xylocaine-Mpf 2%) Confirm Administered Dose 5 ml .ROUTE .STK-MED ONE Stop: 10/17/17 07:36 Methylene Blue (Provayblue) Confirm Administered Dose 50 mg .ROUTE .STK-MED ONE Stop: 10/17/17 07:30 Midazolam HCl (Versed 1 Mg/Ml) Confirm Administered Dose 2 mg .ROUTE .STK-MED ONE Stop: 10/17/17 07:36 Octyl Cyanoacrylate (Dermabond Advance) Confirm Administered Dose 1 applic .ROUTE .STK-MED ONE Stop: 10/17/17 07:30 Ondansetron HCl (Zofran) Confirm Administered Dose 4 mg .ROUTE .[employer]-MED ONE Stop: 10/17/17 07:36 Propofol (Diprivan 20 Ml) Confirm Administered Dose 200 mg .ROUTE .[employer]-MED ONE Stop: 10/17/17 07:36 Rocuronium Jackson (Zemuron) Confirm Administered Dose 100 mg .ROUTE .[employer]-MED ONE Stop: 10/17/17 07:36
[2017-10-17 08:16] LABS: CHLORIDE,CL 105 mmol/L (98-107); SODIUM,NA 140 mmol/L (136-145)
[2017-10-17] MEDS ORDERED: Dexamethasone 4 MG/ML 5 ML MDV ONE (08:27)
[2017-10-17] MEDS ORDERED: diphenhydrAMINE 50 MG/ML SDV ONE (08:27)
[2017-10-17] MEDS ORDERED: HYDROmorphone 2 MG/ML SDV ONE (08:48)
[2017-10-17] MEDS ORDERED: Furosemide 40 MG/4 ML VIAL ONE (08:57)
[2017-10-17] MEDS ORDERED: Ketamine 500 mg/10 ML MDV ONE (09:09)
[2017-10-17] MEDS ORDERED: Acetaminophen/oxyCODONE 325-5 MG Tab PO PRN (10:11)
[2017-10-17] MEDS ORDERED: Belladonna Alkaloids/Opium 16.2-30 MG Supp RECTAL PRN (10:11)
[2017-10-17] MEDS ORDERED: fentaNYL 100 MCG/2 ML SDV IVPUSH PRN (10:11)
[2017-10-17] MEDS ORDERED: Promethazine 25 MG/ML SDV IM PRN (10:11)
[2017-10-17] MEDS ORDERED: Ondansetron 4 MG/2 ML SDV IVPUSH PRN (10:11)
--- NOTE | 2017-10-17 10:26 | PCM.OPNOTE ---
- General Post-Op/Procedure Note Date of Surgery/Procedure: 10/17/17 Operative Procedure(s): LAVH/bilateral salpingectomy/cystoscopy Findings: 8-10 week uterus, boggy. Bilateral patent ureters, normal appearing ovaries Pre Op Diagnosis: Menorrhagia Post-Op Diagnosis: Same Anesthesia Technique: General ET Tube Primary Surgeon: Adelaide Balderas Mainframe Systems Engineer: Licha Manriquez Fluid Replacement, Intraop: 2,000 EBL in mLs: 50 Complications: None known Condition: Good Free Text/Narrative:: Dictation [id number]
[2017-10-17] MEDS ORDERED: fentaNYL 100 MCG/2 ML SDV ONE (11:16)
[2017-10-17] MEDS: fentaNYL 100 MCG/2 ML SDV IVPUSH PRN ×2 (11:17→11:23)
--- NOTE | 2017-10-17 11:21 | PCM.POSTAN ---
POST ANESTHESIA ASSESSMENT - MENTAL STATUS Mental Status: Alert, Oriented - RESPIRATORY Respiratory Status: Respiratory Rate WNL, Airway Patent, O2 Saturation Stable ( anticipated pain management problems in PACU, Will be admitted, Recommend spo2 monitoring) - CARDIOVASCULAR CV Status: Pulse Rate WNL, Blood Pressure Stable - GASTROINTESTINAL GI Status: No Symptoms - POST OP HYDRATION Hydration Status: Adequate & Stable
[2017-10-17] MEDS: Ibuprofen 600 MG Tab PO PRN ×2 (13:37→19:58)
--- NOTE | 2017-10-17 14:38 | OR ---
SURGEON: Adelaide Balderas M.D. DATE OF PROCEDURE: 10/17/2017 PREOPERATIVE DIAGNOSIS: Menorrhagia. POSTOPERATIVE DIAGNOSIS: Menorrhagia. PROCEDURES: Laparoscopic-assisted vaginal hysterectomy with bilateral salpingectomy, cystoscopy. FOREST RESOURCE SPECIALIST: Licha Manriquez M.D. ANESTHESIA: General endotracheal anesthesia. ESTIMATED BLOOD LOSS: 50 mL. FLUIDS: 2000 mL crystalloid. COMPLICATIONS: None. FINDINGS: A 8 to 10 week boggy uterus. Normal-appearing fallopian tubes. Normal- appearing ovaries. Bilateral patent ureters. DISPOSITION: The patient to PACU. SPECIMENS: To pathology. PROCEDURE IN DETAIL: Griselda is a 36-year-old G4, P3, A1, who has had ongoing difficulties with menorrhagia. At this time, she would like to proceed with definitive surgical intervention. Risks of procedure have been discussed. Proper consent obtained. The patient was taken to the operating room where she underwent general endotracheal anesthesia and was placed in modified dorsal lithotomy position and was prepped and draped in the usual sterile fashion. SCDs to lower extremities. Marshall to gravity. Received Ancef 2 g prophylactically. Time-out was performed. Speculum was introduced in the vagina. Anterior lip of cervix was grasped with an Allis clamp. Uterine HUMI manipulator was gently placed and balloon was insufflated. Instruments other than the manipulator were now removed from the vagina. Gloves changed. Attention turned abdominally. Infraumbilically, 0.25% Marcaine was introduced into the subcutaneous tissue. Please see nurse's notes for total amount of local dispensed during the procedure. A 5 mm midline infraumbilical sagittal skin incision created, anterior abdominal wall tented upward. Veress needle was gently introduced. Saline hanging drop test was performed. Pneumoperitoneum was achieved. The Veress needle removed. Trocar was introduced followed by laparoscoped. Peritoneal contents were identified. Right lower quadrant followed by left lower quadrant, trocars were introduced after prepping these regions with 0.25% Marcaine creating 5 mm skin incisions. After being introduced under direct visualization, graspers were introduced and the uterus was able to be visualized as well as fallopian tubes and ovaries, was able to identify the left ureter peristalsing along pelvic sidewall followed by the right and seemed to be well outside of the operative field. Attention was now turned to performing the left salpingectomy. The left fallopian tube was tented upward and salpingectomy was performed to the level of the cornua on the left side. This juncture was able to introduce a LigaSure through the infraumbilical port and in 0 fashion, was able to secure the utero- tubo-ovarian pedicle. The upper portion of the broad ligament, middle portion of the broad ligament including the round ligament, base of the broad ligament to the level of the cardinal ligament. At this point, was able to dissect the anterior peritoneum and with the bladder peritoneum being tented upward, was able to create a bladder flap with the LigaSure. Remainder of the cardinal ligament was able to be secured with LigaSure, cauterized and transected down to the level of the uterosacral ligament. In similar fashion, was performed at the patient's right side. The right salpingectomy was performed up to the level of the cornua. The oxyaq-jsez-[id number] pedicle was able to be secured followed by the broad ligament in three separate pedicles including the round ligament. Remainder of the bladder flap was able to be created anteriorly. The cardinal ligament was able to be secured, cauterized, and transected down to the level of the uterosacral ligament. The bladder mobilized nicely with lower uterine segment cervix. At this juncture, was able to remove laparoscopic instruments, released pneumoperitoneum, turned attention vaginally. The patient was gently repositioned on the bed. Hips and knees were flexed. The weighted speculum, anterior Terry, and vaginal sidewall retractors were now gently placed. Cervix was grasped with Myrna clamp. Cervix was circumscribed with Bovie cautery anteriorly and posteriorly as well as sidewall of overlying mucosa was gently dissected bluntly away from underlying peritoneum. Posterior peritoneum was tented downward and entered sharply. Longer weighted speculum replaced the shorter. Anterior peritoneum was also entered sharply. Anterior Terry mobilized bladder away from the operative field. Madi clamp was utilized on either side to secure uterosacral ligament. Pedicle was secured, transected, and suture ligated with 2-0 Vicryl. Further pedicle on either side incorporating remainder of the uterosacral ligament. Base of the cardinal ligament was able to be secured with Madi clamps, transected, and suture ligated. The uterus and bilateral fallopian tubes were now handed off to engineering lab technician to be sent to Pathology for further analysis. The pedicles were closely inspected, appeared hemostatic. The uterosacral ligament on either side was secured to the vaginal apex of the same side. The cuff was closed using 0 Vicryl in continuous running locked fashion. All sutures trimmed. Marshall balloon was desufflated, and removed. IV fluorescein with IV Lasix was introduced by the 's anesthesia. Cystoscope was now gently introduced into the bladder. Dome of the bladder was able to be visualized, appeared to be intact with bubble noted. Trigone was now inspected. The right ureteral orifice followed by the left ureteral orifice was able to be visualized. Fluorescein dyed urine was seen streaming from them, helping to ensure ureteral patency. The bladder was now drained. The cystoscope was removed. A flat Marshall catheter was replaced. The vaginal cuff once again inspected and found to be hemostatic. The gloves were changed. Attention returned abdominally. Pneumoperitoneum was again achieved. Laparoscoped was introduced. Pedicles were closely inspected. They are copiously irrigated and suction dried. Relief pressure was decreased to 5 mm. The pedicles once again inspected and found to be hemostatic. Therefore, the pneumoperitoneum was released. The right and left lower quadrant trocars were removed under direct visualization followed by infraumbilical trocar and laparoscope. The skin edges were reapproximated using 3-0 Monocryl in subcuticular fashion. The patient has tolerated this procedure well overall. She will go to PACU in stable condition. Sponge, instrument, needle counts were correct x2. ZOË / JASON /[id number]
[2017-10-17] MEDS ORDERED: Nicotine 21 MG/24 Hr Patch TRDERM ONE (17:10)
[2017-10-17] MEDS: Acetaminophen/oxyCODONE 325-5 MG Tab PO PRN ×2 (17:32→21:32)
--- NOTE | 2017-10-17 17:46 | PCM.SN ---
- Free Text/Narrative Note: Patient is doing well overall, pain is controlled with oral pain meds. Ambulated the halls. She denies nausea. Will remove catheter this evening and monitor for voiding. Labs in the morning. Explained intraoperative findings and procedure. She is encouraged to ambulate this evening. VS are stable, adequate urine output. She is a smoker and does agree to trial a nicotine patch this evening. Continue postoperative cares, anticipate discharge in the morning if VS remain stable and labs reassuring.
[2017-10-17] MEDS: Docusate Sodium 100 MG Cap PO SCH (19:59)
[2017-10-18] MEDS: Acetaminophen/oxyCODONE 325-5 MG Tab PO PRN ×2 (01:59→06:23)
--- NOTE | 2017-10-18 06:04 | PCM48HPAN ---
Post Anesthesia Note - EVALUATION WITHIN 48HRS OF ANESTHETIC Vital Signs in Normal Range: Yes Patient Participated in Evaluation: No (pt sleeping) Respiratory Function Stable: Yes Airway Patent: Yes Cardiovascular Function Stable: Yes Hydration Status Stable: Yes Pain Control Satisfactory: Yes Nausea and Vomiting Control Satisfactory: Yes Mental Status Recovered: Yes Resp Rate: 16 - COMMENTS/OBSERVATIONS Free Text/Narrative:: Pt's nurse states that she has had a good night. Pt has been up walking around and gone over the 4 hour minimum for requesting pain medication. No apparent anesthesia complications.
[2017-10-18] MEDS: Docusate Sodium 100 MG Cap PO SCH (08:06)
[2017-10-18] MEDS: Ibuprofen 600 MG Tab PO PRN (08:06)
[2017-10-18 08:15] VITALS: BP 114/64
--- NOTE | 2017-10-18 08:48 | PCM.SURGPN ---
- General Info Date of Service: 10/18/17 POD#: 1 Functional Status: Reports: Pain Controlled, Tolerating Diet, Ambulating, Urinating - Review of Systems General: Denies: Fever Pulmonary: Denies: Shortness of Breath Cardiovascular: Denies: Chest Pain, Palpitations, Lightheadedness Gastrointestinal: Reports: Abdominal Pain (mostly cramping post surgical, controlled overall), Flatus. Denies: Nausea, Vomiting Genitourinary: Denies: Flank Pain Neurological: Denies: Confusion, Headache Psychiatric: Reports: No Symptoms - Patient Data Vitals - Most Recent: Last Vital Signs Temp 36.7 C 10/18/17 08:00 Pulse 74 10/18/17 08:00 Resp 17 10/18/17 08:00 BP 114/64 10/18/17 08:00 Pulse Ox 96 10/18/17 08:00 Weight - Most Recent: 86.183 kg I&O - Last 24 Hours: Intake & Output 10/17/17 10/18/17 10/18/17 22:59 06:59 14:59 Output Total 1000 Balance -1000 Lab Results Last 24 Hrs: Laboratory Results - last 24 hr 10/18/17 10/18/17 Range/Units 04:40 04:40 WBC 17.29 H (4.0-11.0) K/uL RBC 3.90 L (4.30-5.90) M/uL Hgb 12.2 (12.0-16.0) g/dL Hct 36.6 (36.0-46.0) % MCV 93.8 (80.0-98.0) fL MCH 31.3 (27.0-32.0) pg MCHC 33.3 (31.0-37.0) g/dL RDW Std Deviation 45.8 (28.0-62.0) fl RDW Coeff of Elva 13 (11.0-15.0) % Plt Count 235 (150-400) K/uL MPV 10.50 (7.40-12.00) fL Neut % (Auto) 78.3 (48.0-80.0) % Lymph % (Auto) 16.3 (16.0-40.0) % [place] % (Auto) 5.2 (0.0-15.0) % Eos % (Auto) 0.1 (0.0-7.0) % Baso % (Auto) 0.1 (0.0-1.5) % Neut # (Auto) 13.5 H (1.4-5.7) K/uL Lymph # (Auto) 2.8 H (0.6-2.4) K/uL [place] # (Auto) 0.9 H (0.0-0.8) K/uL Eos # (Auto) 0.0 (0.0-0.7) K/uL Baso # (Auto) 0.0 (0.0-0.1) K/uL Nucleated RBC % 0.0 /100WBC Nucleated RBCs # 0 K/uL Sodium 140 (136-145) mmol/L Potassium 4.1 (3.5-5.1) mmol/L Chloride 107 (98-107) mmol/L Carbon Dioxide 27.6 (21.0-32.0) mmol/L BUN 10 (7.0-18.0) mg/dL Creatinine 1.1 H (0.6-1.0) mg/dL Est Cr Clr Drug Dosing 66.82 mL/min Estimated GFR (MDRD) 56.5 ml/min Glucose 108 H (74-106) mg/dL Calcium 8.6 (8.5-10.1) mg/dL Med Orders - Current: Current Medications Belladonna Alkaloids/Opium (B & O Supprettes No. 15a) 1 supp RECTAL Q4H PRN PRN Reason: Pain Docusate Sodium (Colace) 100 mg PO BID JYOTI Last Admin: 10/18/17 08:06 Dose: 100 mg Fentanyl (Sublimaze) 50 mcg IVPUSH Q1H PRN PRN Reason: Pain Fentanyl (Sublimaze) 50 mcg IVPUSH SEECOMMENT PRN PRN Reason: Pain (moderate 4-6) Last Admin: 10/17/17 11:23 Dose: 50 mcg Ibuprofen (Motrin) 600 mg PO Q6H PRN PRN Reason: Pain (mild 1-3) Last Admin: 10/18/17 08:06 Dose: 600 mg Ondansetron HCl (Zofran) 4 mg IVPUSH Q6H PRN PRN Reason: Nausea/Vomiting Oxycodone/Acetaminophen (Percocet 325-5 Mg) 1 tab PO Q4H PRN PRN Reason: Pain (moderate 4-6) Last Admin: 10/17/17 13:37 Dose: 1 tab Oxycodone/Acetaminophen (Percocet 325-5 Mg) 2 tab PO Q4H PRN PRN Reason: Pain (moderate 4-6) Last Admin: 10/18/17 06:23 Dose: 2 tab Promethazine HCl (Phenergan) 25 mg IM Q6H PRN PRN Reason: Nausea/Vomiting Sodium Chloride (Saline Flush) 10 ml FLUSH ASDIRECTED PRN PRN Reason: Keep Vein Open Sodium Chloride (Saline Flush) 2.5 ml FLUSH ASDIRECTED PRN PRN Reason: Keep Vein Open Discontinued Medications Bupivacaine HCl (Sensorcaine-Mpf 0.25%) Confirm Administered Dose 30 ml .ROUTE .STK-MED ONE Stop: 10/17/17 07:30 Dexamethasone (Dexamethasone) Confirm Administered Dose 20 mg .ROUTE .STK-MED ONE Stop: 10/17/17 08:28 Diphenhydramine HCl (Benadryl) Confirm Administered Dose 50 mg .ROUTE .STK-MED ONE Stop: 10/17/17 08:28 Fentanyl (Sublimaze) Confirm Administered Dose 250 mcg .ROUTE .STK-MED ONE Stop: 10/17/17 07:37 Fentanyl (Sublimaze) Confirm Administered Dose 100 mcg .ROUTE .STK-MED ONE Stop: 10/17/17 11:17 Last Admin: 10/17/17 14:27 Dose: Not Given Fluorescein Sodium (Ak-Fluor) Confirm Administered Dose 5 ml .ROUTE .STK-MED ONE Stop: 10/17/17 07:31 Furosemide (Lasix) Confirm Administered Dose 40 mg .ROUTE .STK-MED ONE Stop: 10/17/17 08:58 Hydromorphone HCl (Dilaudid) Confirm Administered Dose 2 mg .ROUTE .STK-MED ONE Stop: 10/17/17 08:49 Cefazolin Sodium/Dextrose 2 gm (/ Premix) 50 mls @ 100 mls/hr IV ONETIME ONE Stop: 10/17/17 05:29 Last Admin: 10/17/17 14:28 Dose: Not Given Acetaminophen (Ofirmev) Confirm Administered Dose 100 mls @ as directed IV .STK- MED ONE Stop: 10/17/17 09:36 Ketamine HCl (Ketalar) Confirm Administered Dose 500 mg .ROUTE .STK-MED ONE Stop: 10/17/17 09:10 Lidocaine (Xylocaine-Mpf 2%) Confirm Administered Dose 5 ml .ROUTE .STK-MED ONE Stop: 10/17/17 07:36 Methylene Blue (Provayblue) Confirm Administered Dose 50 mg .ROUTE .STK-MED ONE Stop: 10/17/17 07:30 Midazolam HCl (Versed 1 Mg/Ml) Confirm Administered Dose 2 mg .ROUTE .STK-MED ONE Stop: 10/17/17 07:36 Midazolam HCl (Versed 1 Mg/Ml) 2 mg IVPUSH ONETIME ONE Stop: 10/17/17 08:12 Last Admin: 10/17/17 14:28 Dose: Not Given Nicotine (Habitrol) 21 mg TRDERM ONETIME ONE Stop: 10/17/17 17:11 Octyl Cyanoacrylate (Dermabond Advance) Confirm Administered Dose 1 applic .ROUTE .STK-MED ONE Stop: 10/17/17 07:30 Ondansetron HCl (Zofran) Confirm Administered Dose 4 mg .ROUTE .STK-MED ONE Stop: 10/17/17 07:36 Propofol (Diprivan 20 Ml) Confirm Administered Dose 200 mg .ROUTE .STK-MED ONE Stop: 10/17/17 07:36 Rocuronium [place] (Zemuron) Confirm Administered Dose 100 mg .ROUTE .STK-MED ONE Stop: 10/17/17 07:36 - Exam Wound/Incisions: Healing Well, No Drainage. No: Erythema General: Alert, Oriented Lungs: Normal Respiratory Effort Cardiovascular: Regular Rate, Regular Rhythm GI/Abdominal Exam: Normal Bowel Sounds, Soft Extremities: Non-Tender, Pedal Edema (trace). No: Ben's Sign Skin: Warm, Dry, Intact Neurological: No New Focal Deficit Psy/Mental Status: Alert, Normal Affect - Problem List & Annotations (1) Menorrhagia SNOMED Code(s): 810372487 Code(s): N92.0 - EXCESSIVE AND FREQUENT MENSTRUATION WITH REGULAR CYCLE Status: Acute Current Visit: Yes - Problem List Review Problem List Initiated/Reviewed/Updated: Yes - My Orders Last 24 Hours: Active Orders 24 hr Category Date Time Status Patient Status [ADT] Routine ADT 10/17/17 10:11 Active May Shower [RC] ASDIRECTED Care 10/17/17 10:11 Active Notify Provider Intake and Out [RC] ASDIRECTED Care 10/17/17 10:11 Active Notify Provider Vital Signs [RC] ASDIRECTED Care 10/17/17 10:11 Active Overnight Pulse Oximetry [RC] Click to Edit Care 10/17/17 11:21 Active Oxygen Therapy [RC] ASDIRECTED Care 10/17/17 10:11 Active RT Incentive Spirometry [RC] Q2HWA Care 10/17/17 10:11 Active Ready for Discharge [RC] PER UNIT ROUTINE Care 10/18/17 08:45 Ordered Up With Assistance [RC] PER UNIT ROUTINE Care 10/17/17 10:11 Active Up ad Sandie [RC] PER UNIT ROUTINE Care 10/17/17 10:11 Active Urinary Catheter Removal [RC] Per Unit Routine Care 10/17/17 10:11 Active Regular Diet [DIET] Diet 10/17/17 Lunch Active Acetaminophen/oxyCODONE [Percocet 325-5 MG] Med 10/17/17 10:11 Active 1 tab PO Q4H PRN Acetaminophen/oxyCODONE [Percocet 325-5 MG] Med 10/17/17 10:11 Active 2 tab PO Q4H PRN Belladonna/Opium [B & O Supprettes No. 15A] Med 10/17/17 10:11 Active 1 supp RECTAL Q4H PRN Docusate Sodium [Colace] Med 10/17/17 21:00 Active 100 mg PO BID Ibuprofen [Motrin] Med 10/17/17 10:11 Active 600 mg PO Q6H PRN Ondansetron [Zofran] Med 10/17/17 10:11 Active 4 mg IVPUSH Q6H PRN Promethazine [Phenergan] Med 10/17/17 10:11 Active 25 mg IM Q6H PRN fentaNYL [Sublimaze] Med 10/17/17 10:11 Active 50 mcg IVPUSH Q1H PRN fentaNYL [Sublimaze] Med 10/17/17 11:15 Active 50 mcg IVPUSH SEECOMMENT PRN Perineal Care [OM.PC] Per Unit Routine Oth 10/17/17 10:12 Ordered Peripheral IV Discontinue [OM.PC] Routine Oth 10/17/17 10:11 Ordered Pulse Oximetry Continuous Monitoring [OM.PC] Routine Oth 10/17/17 11:21 Ordered Sequential Compression Device [OM.PC] Per Unit Routine Oth 10/17/17 10:11 Ordered Resuscitation Status Routine Resus Stat 10/17/17 10:11 Ordered Medication Orders Belladonna Alkaloids/Opium (B & O Supprettes No. 15a) 1 supp RECTAL Q4H PRN PRN Reason: Pain Docusate Sodium (Colace) 100 mg PO BID JYOTI Last Admin: 10/18/17 08:06 Dose: 100 mg Admin: 10/17/17 19:59 Dose: 100 mg Fentanyl (Sublimaze) 50 mcg IVPUSH Q1H PRN PRN Reason: Pain Fentanyl (Sublimaze) 50 mcg IVPUSH SEECOMMENT PRN PRN Reason: Pain (moderate 4-6) Last Admin: 10/17/17 11:23 Dose: 50 mcg Admin: 10/17/17 11:17 Dose: 50 mcg Ibuprofen (Motrin) 600 mg PO Q6H PRN PRN Reason: Pain (mild 1-3) Last Admin: 10/18/17 08:06 Dose: 600 mg Admin: 10/17/17 19:58 Dose: 600 mg Admin: 10/17/17 13:37 Dose: 600 mg Ondansetron HCl (Zofran) 4 mg IVPUSH Q6H PRN PRN Reason: Nausea/Vomiting Oxycodone/Acetaminophen (Percocet 325-5 Mg) 1 tab PO Q4H PRN PRN Reason: Pain (moderate 4-6) Last Admin: 10/17/17 13:37 Dose: 1 tab Oxycodone/Acetaminophen (Percocet 325-5 Mg) 2 tab PO Q4H PRN PRN Reason: Pain (moderate 4-6) Last Admin: 10/18/17 06:23 Dose: 2 tab Admin: 10/18/17 01:59 Dose: 2 tab Admin: 10/17/17 21:32 Dose: 2 tab Admin: 10/17/17 17:32 Dose: 2 tab Promethazine HCl (Phenergan) 25 mg IM Q6H PRN PRN Reason: Nausea/Vomiting Sodium Chloride (Saline Flush) 10 ml FLUSH ASDIRECTED PRN PRN Reason: Keep Vein Open Sodium Chloride (Saline Flush) 2.5 ml FLUSH ASDIRECTED PRN PRN Reason: Keep Vein Open - Assessment Assessment (Free Text/Narrative):: POD 1 status post LAVH/bilateral salpingectomy/cystoscopy - Plan Plan (Free Text/Narrative):: Doing well overall--very motivated to go home. Labs are reassuring overall, creat is 1.1--patient has been without iv since yesterday afternoon. Will repeat lab at postop. Denies any flank pain and cystoscopy was reassuring. Discharge to home. Follow up at [facility] 2 and 6 weeks. Infection, bleeding warnings given. Will contact her with pathology results.
== END 2017-10-18 09:30 | disposition home or self-care (01) ==
LOC: MW.SDS 07:35 → MW.OB 14:12 → MW.SDS 10-18 09:30
PROVIDERS: ATTEND Obstetrics & Gynecology
DX: N87.9 Dysplasia of cervix uteri, unspecified (principal); N83.9 Noninflammatory disorder of ovary, fallopian tube and broad ligament, unspecified; N92.0 Excessive and frequent menstruation with regular cycle; N94.6 Dysmenorrhea, unspecified; F17.210 Nicotine dependence, cigarettes, uncomplicated; F41.9 Anxiety disorder, unspecified; Z79.899 Other long term (current) drug therapy; Z88.5 Allergy status to narcotic agent; Z88.6 Allergy status to analgesic agent
CPT/HCPCS: 36415; 58552; 80048; 84703; 85025; 85027; 86850; 86900; 86901; 88307; A9270; J1100; J1170; J1200; J1940; J2250; J2405; J3010; J2704

== ENCOUNTER 2017-10-26 02:39 | Inpatient (IN) | payer MEDICAID, OTHER ==
--- NOTE | 2017-10-26 02:48 | EDM.PDOC ---
ED HPI GENERAL MEDICAL PROBLEM - General Chief Complaint: Abdominal Pain Stated Complaint: PAIN AFTER HYSTERECTOMY; FEVER Time Seen by Provider: 10/26/17 02:48 Source of Information: Reports: Patient - History of Present Illness INITIAL COMMENTS - FREE TEXT/NARRATIVE: HISTORY AND PHYSICAL: History of present illness: [Patient presents with fever and abdominal pain 10 out of 10 diffuse multifocal pain Patient is postop day [address] Balderas, she has been having some intermittent pain but doing well since surgery tonight at 10 PM she developed 10 out of 10 pain she did take Percocet which has not alleviated she feels quite nauseous but no vomiting she has subjective fever at home no chest pain shortness of breath headache dizziness or palpitation she does complain of dysuria her last bowel movement was 24 hours prior small hard stool per patient] Review of systems: As per history of present illness and below otherwise all systems reviewed and negative. Past medical history: As per history of present illness and as reviewed below otherwise noncontributory. Surgical history: As per history of present illness and as reviewed below otherwise noncontributory. Social history: No reported history of drug or alcohol abuse. Family history: As per history of present illness and as reviewed below otherwise noncontributory. Physical exam: HEENT: Atraumatic, normocephalic, pupils reactive, negative for conjunctival pallor or scleral icterus, mucous membranes moist, throat clear, neck supple, nontender, trachea midline. Lungs: Clear to auscultation, breath sounds equal bilaterally, chest nontender. Heart: S1S2, regular, negative for clicks, rubs, or JVD. Abdomen: Soft, protuberant multifocal tender. Negative for masses or hepatosplenomegaly. Negative for costovertebral tenderness. Pelvis: Stable nontender. Genitourinary: Deferred. Rectal: Deferred. Extremities: Atraumatic, negative for cords or calf pain. Neurovascular unremarkable. Neuro: Awake, alert, oriented. Cranial nerves II through XII unremarkable. Cerebellum unremarkable. Motor and sensory unremarkable throughout. Exam nonfocal. Diagnostics: [CBC CMP UA lipase UA blood cultures urine culture CT abdomen pelvis with contrast ] Therapeutics: [Normal saline 1 25 mL per hour Morphine 2 mg IV Reglan 10 mg IV Zofran 4 mg IV Discussed with gynecology on-call from [facility] Dr. Means She recommends clindamycin 300 mg IV Gentamicin IV She will be down to the emergency room to evaluate the patient ] Impression: [ abdominal pain subjective fever Leukocytosis Postop day 10 for hysterectomy ] Definitive disposition and diagnosis as appropriate pending reevaluation and review of above. abdomen Pain Score (Numeric/FACES): 7 - Related Data Allergies Allergy/AdvReac Type Severity Reaction Status Date / Time ketorolac [From Toradol] Allergy Itching Verified 10/26/17 02:50 tramadol Allergy Rash Verified 10/26/17 02:50 Home Meds: Home Meds ClonazePAM [KlonoPIN] 0.5 mg PO BID 12/28/15 [History] Acetaminophen/oxyCODONE [Percocet 325-10 MG] 1 tab PO ASDIRECTED PRN 10/12/17 [ History] Gabapentin [Neurontin] 300 mg PO QID 10/12/17 [History] Venlafaxine [Effexor XR] 50 mg PO DAILY 10/12/17 [History] Past Medical History - Past Health History Medical/Surgical History: Denies Medical/Surgical History HEENT History: Reports: Other (See Below) Other HEENT History: wears glasses/contacts Gastrointestinal History: Reports: Other (See Below) Other Gastrointestinal History: occasional heartburn Genitourinary History: Reports: Pyelonephritis, UTI, 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: Musculoskeletal History: Reports: Fracture Other Musculoskeletal History: hx fx wrist Neurological History: Reports: Other (See Below) Other Neuro History: Nerve pain in legs, 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 Psychiatric History: Reports: Anxiety, Depression - Infectious Disease History Infectious Disease History: Reports: Chicken Pox - Past Surgical History Head Surgeries/Procedures: Reports: None HEENT Surgical History: Reports: Oral Surgery Musculoskeletal Surgical History: Reports: Arthroscopic Knee Social & Family History - Family History Family Medical History: Noncontributory - Caffeine Use Caffeine Use: Reports: Soda ED ROS GENERAL - Review of Systems Review Of Systems: See Below ED EXAM, GENERAL - Physical Exam Exam: See Below Course - Vital Signs Last Recorded V/S: Last Vital Signs Temp 99.5 F 10/26/17 04:59 Pulse 112 H 10/26/17 04:59 Resp 18 10/26/17 04:59 BP 114/70 10/26/17 04:59 Pulse Ox 97 10/26/17 04:59 - Orders/Labs/Meds Orders: Active Orders 24 hr Category Date Time Status Abdomen Pelvis w wo Cont [CT] Stat Exams 10/26/17 03:25 Taken CULTURE BLOOD [BC] Stat Lab 10/26/17 03:35 Received CULTURE BLOOD [BC] Stat Lab 10/26/17 03:43 Received CULTURE URINE [RM] Stat Lab 10/26/17 03:23 Ordered UA W/MICROSCOPIC [URIN] Stat Lab 10/26/17 03:09 Ordered Clindamycin Phosphate [Cleocin] 300 mg Med 10/26/17 05:02 Ordered Sodium Chloride 0.9% [Normal Saline] 50 ml IV ONETIME Gentamicin 80 mg Med 10/26/17 05:03 Ordered Sodium Chloride 0.9% [Normal Saline] 100 ml IV ONETIME Sodium Chloride 0.9% [Normal Saline] 1,000 ml Med 10/26/17 05:15 Ordered IV STAT Blood Culture x2 Reflex Set [OM.PC] Stat Oth 10/26/17 02:49 Ordered Labs: Laboratory Tests 10/26/17 10/26/17 10/26/17 Range/Units 03:05 03:05 03:09 WBC 20.50 H (4.0-11.0) K/uL RBC 4.34 (4.30-5.90) M/uL Hgb 13.8 (12.0-16.0) g/dL Hct 40.3 (36.0-46.0) % MCV 92.9 (80.0-98.0) fL MCH 31.8 (27.0-32.0) pg MCHC 34.2 (31.0-37.0) g/dL RDW Std Deviation 45.9 (28.0-62.0) fl RDW Coeff of Elva 14 (11.0-15.0) % Plt Count 300 (150-400) K/uL MPV 10.50 (7.40-12.00) fL Neut % (Auto) 90.2 H (48.0-80.0) % Lymph % (Auto) 5.2 L (16.0-40.0) % [place] % (Auto) 4.4 (0.0-15.0) % Eos % (Auto) 0.1 (0.0-7.0) % Baso % (Auto) 0.1 (0.0-1.5) % Neut # (Auto) 18.5 H (1.4-5.7) K/uL Lymph # (Auto) 1.1 (0.6-2.4) K/uL [place] # (Auto) 0.9 H (0.0-0.8) K/uL Eos # (Auto) 0.0 (0.0-0.7) K/uL Baso # (Auto) 0.0 (0.0-0.1) K/uL Nucleated RBC % 0.0 /100WBC Nucleated RBCs # 0 K/uL Sodium 136 (136-145) mmol/L Potassium 3.6 (3.5-5.1) mmol/L Chloride 102 (98-107) mmol/L Carbon Dioxide 24.5 (21.0-32.0) mmol/L BUN 9 (7.0-18.0) mg/dL Creatinine 1.0 (0.6-1.0) mg/dL Est Cr Clr Drug Dosing 73.51 mL/min Estimated GFR (MDRD) > 60.0 ml/min Glucose 116 H (74-106) mg/dL Calcium 9.0 (8.5-10.1) mg/dL Total Bilirubin 0.8 (0.2-1.0) mg/dL AST 26 (15-37) IU/L ALT 33 (14-63) IU/L Alkaline Phosphatase 76 (46-116) U/L Total Protein 7.5 (6.4-8.2) g/dL Albumin 3.5 (3.4-5.0) g/dL Globulin 4.0 H (2.0-3.5) g/dL Albumin/Globulin Ratio 0.9 L (1.3-2.8) Lipase 94 (73-393) U/L Urine Color YELLOW Urine Appearance CLEAR Urine pH 7.0 (5.0-8.0) Ur Specific [place] <= 1.005 (1.001-1.035) Urine Protein NEGATIVE (NEGATIVE) mg/dL Urine Glucose (UA) NEGATIVE (NEGATIVE) mg/dL Urine Ketones NEGATIVE (NEGATIVE) mg/dL Urine Occult Blood MODERATE (NEGATIVE) Urine Nitrite NEGATIVE (NEGATIVE) Urine Bilirubin NEGATIVE (NEGATIVE) Urine Urobilinogen 0.2 (<2.0) EU/dL Ur Leukocyte Esterase NEGATIVE (NEGATIVE) Urine RBC 2-3 (0-2/HPF) Urine WBC 0-1 (0-5/HPF) Ur Epithelial Cells MANY (NONE-FEW) Urine Bacteria FEW (NEGATIVE) Meds: Medications Discontinued Medications Generic Name Dose Route Start Last Admin Trade Name Kehinde PRN Reason Stop Dose Admin Sodium Chloride 1,000 mls @ 999 mls/hr 10/26/17 02:50 10/26/17 03:05 Normal Saline IV 10/26/17 03:50 999 mls/hr STAT ONE Administration Iopamidol 100 ml 10/26/17 03:56 10/26/17 04:15 Isovue-370 (76%) IVPUSH 10/26/17 03:57 100 ml ONETIME STA Administration Lorazepam 1 mg 10/26/17 03:18 10/26/17 03:24 Ativan IVPUSH 10/26/17 03:19 1 mg ONETIME ONE Administration Metoclopramide HCl 10 mg 10/26/17 02:56 10/26/17 03:09 Reglan IV 10/26/17 02:57 10 mg ONETIME ONE Administration Morphine Sulfate 2 mg 10/26/17 02:50 10/26/17 03:09 Morphine IVPUSH 10/26/17 02:51 2 mg ONETIME ONE Administration Ondansetron HCl 4 mg 10/26/17 02:56 10/26/17 03:09 Zofran IVPUSH 10/26/17 02:57 4 mg ONETIME ONE Administration Departure - Departure Time of Disposition: 05:08 Disposition: Refer to Observation Condition: Fair Clinical Impression: Abdominal pain - Discharge Information Referrals: PCP,None [Primary Care Provider] - Forms: ED Department Discharge - My Orders Last 24 Hours: My Active Orders 10/26/17 02:49 Blood Culture x2 Reflex Set [OM.PC] Stat 10/26/17 03:09 UA W/MICROSCOPIC [URIN] Stat 10/26/17 03:23 CULTURE URINE [RM] Stat 10/26/17 03:25 Abdomen Pelvis w wo Cont [CT] Stat 10/26/17 03:35 CULTURE BLOOD [BC] Stat 10/26/17 03:43 CULTURE BLOOD [BC] Stat 10/26/17 05:02 Clindamycin Phosphate [Cleocin] 300 mg Sodium Chloride 0.9% [Normal Saline] 50 ml IV ONETIME 10/26/17 05:03 Gentamicin 80 mg Sodium Chloride 0.9% [Normal Saline] 100 ml IV ONETIME 10/26/17 05:15 Sodium Chloride 0.9% [Normal Saline] 1,000 ml IV STAT - Assessment/Plan Last 24 Hours: My Active Orders 10/26/17 02:49 Blood Culture x2 Reflex Set [OM.PC] Stat 10/26/17 03:09 UA W/MICROSCOPIC [URIN] Stat 10/26/17 03:23 CULTURE URINE [RM] Stat 10/26/17 03:25 Abdomen Pelvis w wo Cont [CT] Stat 10/26/17 03:35 CULTURE BLOOD [BC] Stat 10/26/17 03:43 CULTURE BLOOD [BC] Stat 10/26/17 05:02 Clindamycin Phosphate [Cleocin] 300 mg Sodium Chloride 0.9% [Normal Saline] 50 ml IV ONETIME 10/26/17 05:03 Gentamicin 80 mg Sodium Chloride 0.9% [Normal Saline] 100 ml IV ONETIME 10/26/17 05:15 Sodium Chloride 0.9% [Normal Saline] 1,000 ml IV STAT
[2017-10-26] MEDS ORDERED: Sodium Chloride 0.9% 1,000 ML IV ONE (02:50)
[2017-10-26] MEDS ORDERED: Morphine 2 MG/ML Syringe IVPUSH ONE (02:50)
[2017-10-26] MEDS ORDERED: Metoclopramide 10 MG/2 ML SDV IV ONE (02:56)
[2017-10-26] MEDS ORDERED: Ondansetron 4 MG/2 ML SDV IVPUSH ONE (02:56)
[2017-10-26] MEDS ORDERED: LORazepam 2 MG/ML SDV IVPUSH ONE (03:18)
[2017-10-26 03:41] LABS: CHLORIDE,CL 102 mmol/L (98-107); SODIUM,NA 136 mmol/L (136-145)
[2017-10-26] MEDS ORDERED: Iopamidol 755 Mg/ML 100 ML Bottle IVPUSH STA (03:56)
[2017-10-26] MEDS ORDERED: Clindamycin Phosphate in D5W 300 MG in Premix Bag 1 BAG IV ONE ×2 (05:04)
[2017-10-26] MEDS: Sodium Chloride 0.9% 1,000 ML IV SCH ×2 (05:15→12:46)
[2017-10-26] MEDS ORDERED: Acetaminophen 325 MG Tab PO PRN (06:36)
[2017-10-26] MEDS ORDERED: Acetaminophen/oxyCODONE 325-5 MG Tab PO ONE (06:46)
[2017-10-26] MEDS ORDERED: Acetaminophen 325 MG Tab PO ONE (06:47)
[2017-10-26] MEDS ORDERED: Morphine 4 MG/ML Syringe IVPUSH STA (06:48)
--- NOTE | 2017-10-26 06:52 | PCM.HP ---
H&P History of Present Illness - General Date of Service: 10/26/17 Admit Problem/Dx: Admission Diagnosis/Problem Admission Diagnosis/Problem Abdominal pain Source of Information: Patient History Limitations: Reports: No Limitations - History of Present Illness Initial Comments - Free Text/Narative: 36 yo s/p LAVH POD 10 , she complains of fever of 101 at home and abdominal pain. she states she was well until yesterday at 10pm when she developed fever and abdominal calderón. Abdominal pain is constant and was not relieved with percocet. She complains of dysuria and frequency . She denies vaginal discharg. She denies nausea and vomiting. abdomen Pain Score (Numeric/FACES): 7 - Related Data Allergies/Adverse Reactions: Allergies Allergy/AdvReac Type Severity Reaction Status Date / Time ketorolac [From Toradol] Allergy Itching Verified 10/26/17 02:50 tramadol Allergy Rash Verified 10/26/17 02:50 Home Medications: Home Meds ClonazePAM [KlonoPIN] 0.5 mg PO BID 12/28/15 [History] Acetaminophen/oxyCODONE [Percocet 325-10 MG] 1 tab PO ASDIRECTED PRN 10/12/17 [ History] Gabapentin [Neurontin] 300 mg PO QID 10/12/17 [History] Venlafaxine [Effexor XR] 50 mg PO DAILY 10/12/17 [History] Past Medical History - Past Health History Medical/Surgical History: Denies Medical/Surgical History HEENT History: Reports: Other (See Below) Other HEENT History: wears glasses/contacts Gastrointestinal History: Reports: Other (See Below) Other Gastrointestinal History: occasional heartburn Genitourinary History: Reports: Pyelonephritis, UTI, 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: Musculoskeletal History: Reports: Fracture Other Musculoskeletal History: hx fx wrist Neurological History: Reports: Other (See Below) Other Neuro History: Nerve pain in legs, 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 Psychiatric History: Reports: Anxiety, Depression - Infectious Disease History Infectious Disease History: Reports: Chicken Pox - Past Surgical History Head Surgeries/Procedures: Reports: None HEENT Surgical History: Reports: Oral Surgery Musculoskeletal Surgical History: Reports: Arthroscopic Knee Social & Family History - Family History Family Medical History: Noncontributory - Tobacco Use Smoking Status *Q: Current Every Day Smoker Years of Tobacco use: 20 Packs/Tins Daily: 1 - Caffeine Use Caffeine Use: Reports: Soda - Recreational Drug Use Recreational Drug Use: No H&P Review of Systems - Review of Systems: Review Of Systems: See Below General: Reports: Fever HEENT: Reports: No Symptoms Pulmonary: Reports: No Symptoms Cardiovascular: Reports: No Symptoms Gastrointestinal: Reports: Abdominal Pain Genitourinary: Reports: Dysuria, Frequency Musculoskeletal: Reports: No Symptoms Skin: Reports: No Symptoms Psychiatric: Reports: No Symptoms Neurological: Reports: No Symptoms Hematologic/Lymphatic: Reports: No Symptoms Immunologic: Reports: No Symptoms Exam - Exam Exam: See Below - Vital Signs Vital Signs: Last Vital Signs Temp 37.5 C 10/26/17 04:59 Pulse 112 H 10/26/17 04:59 Resp 18 10/26/17 04:59 BP 114/70 10/26/17 04:59 Pulse Ox 97 10/26/17 04:59 Weight: 90 kg - Exam General: Alert, Oriented HEENT: Conjunctiva Clear Neck: Supple Lungs: Clear to Auscultation Cardiovascular: Regular Rate, Regular Rhythm GI/Abdominal Exam: Other (Laparoscopic incision healed. Lower abdominal tendernerss , slight abdominal distension , Hypoactive bowel sounds ) (Female) Exam: Other (Surgically absent uterus and cervix. moderate amount of cream non foul smelling discharge. Colpotomy intact ) - Patient Data Lab Results Last 24 hrs: Laboratory Results - last 24 hr 10/26/17 10/26/17 10/26/17 Range/Units 03:05 03:05 03:09 WBC 20.50 H (4.0-11.0) K/uL RBC 4.34 (4.30-5.90) M/uL Hgb 13.8 (12.0-16.0) g/dL Hct 40.3 (36.0-46.0) % MCV 92.9 (80.0-98.0) fL MCH 31.8 (27.0-32.0) pg MCHC 34.2 (31.0-37.0) g/dL RDW Std Deviation 45.9 (28.0-62.0) fl RDW Coeff of Elva 14 (11.0-15.0) % Plt Count 300 (150-400) K/uL MPV 10.50 (7.40-12.00) fL Neut % (Auto) 90.2 H (48.0-80.0) % Lymph % (Auto) 5.2 L (16.0-40.0) % [place] % (Auto) 4.4 (0.0-15.0) % Eos % (Auto) 0.1 (0.0-7.0) % Baso % (Auto) 0.1 (0.0-1.5) % Neut # (Auto) 18.5 H (1.4-5.7) K/uL Lymph # (Auto) 1.1 (0.6-2.4) K/uL [place] # (Auto) 0.9 H (0.0-0.8) K/uL Eos # (Auto) 0.0 (0.0-0.7) K/uL Baso # (Auto) 0.0 (0.0-0.1) K/uL Nucleated RBC % 0.0 /100WBC Nucleated RBCs # 0 K/uL Sodium 136 (136-145) mmol/L Potassium 3.6 (3.5-5.1) mmol/L Chloride 102 (98-107) mmol/L Carbon Dioxide 24.5 (21.0-32.0) mmol/L BUN 9 (7.0-18.0) mg/dL Creatinine 1.0 (0.6-1.0) mg/dL Est Cr Clr Drug Dosing 73.51 mL/min Estimated GFR (MDRD) > 60.0 ml/min Glucose 116 H (74-106) mg/dL Calcium 9.0 (8.5-10.1) mg/dL Total Bilirubin 0.8 (0.2-1.0) mg/dL AST 26 (15-37) IU/L ALT 33 (14-63) IU/L Alkaline Phosphatase 76 (46-116) U/L Total Protein 7.5 (6.4-8.2) g/dL Albumin 3.5 (3.4-5.0) g/dL Globulin 4.0 H (2.0-3.5) g/dL Albumin/Globulin Ratio 0.9 L (1.3-2.8) Lipase 94 (73-393) U/L Urine Color YELLOW Urine Appearance CLEAR Urine pH 7.0 (5.0-8.0) Ur Specific [place] <= 1.005 (1.001-1.035) Urine Protein NEGATIVE (NEGATIVE) mg/dL Urine Glucose (UA) NEGATIVE (NEGATIVE) mg/dL Urine Ketones NEGATIVE (NEGATIVE) mg/dL Urine Occult Blood MODERATE (NEGATIVE) Urine Nitrite NEGATIVE (NEGATIVE) Urine Bilirubin NEGATIVE (NEGATIVE) Urine Urobilinogen 0.2 (<2.0) EU/dL Ur Leukocyte Esterase NEGATIVE (NEGATIVE) Urine RBC 2-3 (0-2/HPF) Urine WBC 0-1 (0-5/HPF) Ur Epithelial Cells MANY (NONE-FEW) Urine Bacteria FEW (NEGATIVE) Result Diagrams: 10/26/17 03:05 10/26/17 03:05 - Problem List (1) Abdominal pain SNOMED Code(s): 79418029 ICD Code: R10.9 - UNSPECIFIED ABDOMINAL PAIN Status: Acute Current Visit : Yes Qualifiers: Abdominal location: lower abdomen, unspecified Qualified Code(s): R10.30 - Lower abdominal pain, unspecified (2) Post-operative infection SNOMED Code(s): 97232841 ICD Code: T81.4XXA - INFECTION FOLLOWING A PROCEDURE, INITIAL ENCOUNTER Status: Acute Current Visit: Yes Problem List Initiated/Reviewed/Updated: Yes Orders Last 24hrs: Active Orders 24 hr Category Date Time Status Admission Status [Patient Status] [ADT] Stat ADT 10/26/17 05:28 Active Patient Status [ADT] Routine ADT 10/26/17 06:36 Active Oxygen Therapy [RC] PRN Care 10/26/17 06:36 Active Up ad Sandie [RC] ASDIRECTED Care 10/26/17 06:36 Active VTE/DVT Education [RC] PER UNIT ROUTINE Care 10/26/17 06:36 Active Vital Signs [RC] Q4H Care 10/26/17 06:36 Active Nothing per Oral Now Diet [DIET] Diet 10/26/17 Lunch Active Abdomen Pelvis w wo Cont [CT] Stat Exams 10/26/17 03:25 Taken CBC WITH AUTO DIFF [HEME] Routine Lab 10/27/17 06:36 Ordered CULTURE BLOOD [BC] Stat Lab 10/26/17 03:35 Received CULTURE BLOOD [BC] Stat Lab 10/26/17 03:43 Received CULTURE URINE [RM] Stat Lab 10/26/17 03:23 Ordered CULTURE WOUND [RM] Stat Lab 10/26/17 06:44 Ordered UA W/MICROSCOPIC [URIN] Stat Lab 10/26/17 03:09 Ordered Acetaminophen [Tylenol] Med 10/26/17 06:36 Active 650 mg PO Q4H PRN Acetaminophen/oxyCODONE [Percocet 325-5 MG] Med 10/26/17 06:36 Active 2 tab PO Q4H PRN Morphine Med 10/26/17 06:43 Ordered 4 mg IVPUSH Q6H PRN Piperacillin/Tazobactam [Piperacil-Tazobact] 3.375 gm Med 10/26/17 07:00 Active Sodium Chloride 0.9% [Normal Saline] 50 ml IV Q6H Sodium Chloride 0.9% [Normal Saline] 1,000 ml Med 10/26/17 05:15 Active IV STAT Blood Culture x2 Reflex Set [OM.PC] Stat Oth 10/26/17 02:49 Ordered Sequential Compression Device [OM.PC] Per Unit Routine Oth 10/26/17 06:38 Ordered Resuscitation Status Routine Resus Stat 10/26/17 06:36 Ordered Medication Orders Acetaminophen (Tylenol) 650 mg PO Q4H PRN PRN Reason: Pain (Mild 1-3)/fever Sodium Chloride (Normal Saline) 1,000 mls @ 125 mls/hr IV STAT JYOTI Last Admin: 10/26/17 05:15 Dose: 125 mls/hr Piperacillin Sod/Tazobactam (Sod 3.375 gm/ Sodium Chloride) 50 mls @ 100 mls/ hr IV Q6H JYOTI Morphine Sulfate (Morphine) 4 mg IVPUSH Q6H PRN PRN Reason: Abdominal Pain Oxycodone/Acetaminophen (Percocet 325-5 Mg) 2 tab PO Q4H PRN PRN Reason: Pain (moderate 4-6) Assessment/Plan Comment:: 36 yo s/p LAVh POD 10 Problems: Abdominal pain Fever Elevated WBC count. CT scan: Moderate prominent inflammation with inflammatory bbed causing distortion and tethering of small bowel loop without obstruction. Plan NPO IVF Zosyn 3.375 q 6hrs Pain control with IV morphine , percocet prn Vaginal culture taken Will sign out to Dr Balderas
[2017-10-26] MEDS: Piperacillin/Tazobactam 3.375 GM in Sodium Chloride 0.9% 50 ML IV SCH ×3 (06:56→18:20)
[2017-10-26] MEDS: Acetaminophen/oxyCODONE 325-5 MG Tab PO PRN ×2 (09:19→17:13)
[2017-10-26] MEDS: Morphine 4 MG/ML Syringe IVPUSH PRN ×2 (13:46→20:03)
[2017-10-26] MEDS ORDERED: Nicotine 21 MG/24 Hr Patch TRDERM ONE (14:19)
[2017-10-26] MEDS: Ibuprofen 600 MG Tab PO SCH ×3 (14:53→23:19)
--- NOTE | 2017-10-26 15:29 | CT ---
EXAM DATE: 10/26/17 PATIENT'S AGE: 36 Patient: SUYAPA LIU Facility: [place], [place] Site . Site : [id number] Study: CT Abdomen/Pelvis W/ and W/O Cont [id number]/[id number] 4:15:25 AM Ordering Physician: Roxie Mascorro Final Report: INDICATION: Abdominal pain. Recent laparoscopic hysterectomy. COMPARISON: CT October 05, 2016. TECHNIQUE: Noncontrast images of the abdomen followed by intravenous administration of 100 mL Isovue-370 IV contrast. FINDINGS: No significant findings in the visualized lung bases. No cholelithiasis or nephrolithiasis. Small amount of heterogeneous subacute appearing hemorrhage in the hysterectomy bed at the vaginal cuff. No measurable large hematoma. Hazy attenuation surrounds small-bowel loops in the defect which have some what tethered jumbled look are not dilated. Loops in the hysterectomy bed to have mild mucosal wall and fold enhancement. Small amount of free fluid in the dependent pelvis. No definitive organized fluid. Normal retrocecal appendix. No peritoneal free air. Presumed ovarian cyst at the patella sidewall margin. Urinary bladder appears normal. IMPRESSION: Moderately prominent inflammation appearance within the hysterectomy bed causing distortion and tethering of small bowel loops without frances obstruction. Small amount of peritoneal free fluid. Small amount of subacute hemorrhage along the vaginal cuff. A definitive extraluminal fluid collection is not identified although a small interloop abscess among the distorted bowel loops is difficult to exclude. Clinical correlation with findings of infection and inflammation recommended. Consider repeat imaging with enteric contrast for further characterization if there is ongoing clinical concern. Please note that all CT scans at this facility use dose modulation, iterative reconstruction, and/or weight-based dosing when appropriate to reduce radiation dose to as low as reasonably achievable. Dictated by Ricardo Pollack MD @ Oct 26 2017 4:49AM (Electronic Signature) Report Signed by Proxy. RACHNA
--- NOTE | 2017-10-26 17:53 | PCM.PN ---
- General Info Date of Service: 10/26/17 Functional Status: Reports: Pain Controlled, Tolerating Diet, Ambulating, Urinating - Review of Systems General: Reports: Weakness (mild and feeling better through the day). Denies: Fever Pulmonary: Denies: Shortness of Breath Cardiovascular: Denies: Chest Pain, Palpitations, Lightheadedness Gastrointestinal: Reports: Abdominal Pain (improving, has less right flank pain and feels less bloated), Flatus. Denies: Diarrhea, Nausea, Vomiting Genitourinary: Reports: Flank Pain (right, but is improving) Psychiatric: Reports: No Symptoms - Patient Data Vitals - Most Recent: Last Vital Signs Temp 36.6 C 10/26/17 16:00 Pulse 108 H 10/26/17 16:00 Resp 18 10/26/17 16:00 BP 105/55 L 10/26/17 16:00 Pulse Ox 97 10/26/17 16:00 Weight - Most Recent: 88.6 kg I&O - Last 24 Hours: Intake & Output 10/26/17 10/26/17 10/26/17 06:59 14:59 22:59 Intake Total 250 Output Total 825 Balance -575 Lab Results Last 24 Hours: Laboratory Results - last 24 hr 10/26/17 10/26/17 10/26/17 Range/Units 03:05 03:05 03:09 WBC 20.50 H (4.0-11.0) K/uL RBC 4.34 (4.30-5.90) M/uL Hgb 13.8 (12.0-16.0) g/dL Hct 40.3 (36.0-46.0) % MCV 92.9 (80.0-98.0) fL MCH 31.8 (27.0-32.0) pg MCHC 34.2 (31.0-37.0) g/dL RDW Std Deviation 45.9 (28.0-62.0) fl RDW Coeff of Elva 14 (11.0-15.0) % Plt Count 300 (150-400) K/uL MPV 10.50 (7.40-12.00) fL Neut % (Auto) 90.2 H (48.0-80.0) % Lymph % (Auto) 5.2 L (16.0-40.0) % [place] % (Auto) 4.4 (0.0-15.0) % Eos % (Auto) 0.1 (0.0-7.0) % Baso % (Auto) 0.1 (0.0-1.5) % Neut # (Auto) 18.5 H (1.4-5.7) K/uL Lymph # (Auto) 1.1 (0.6-2.4) K/uL [place] # (Auto) 0.9 H (0.0-0.8) K/uL Eos # (Auto) 0.0 (0.0-0.7) K/uL Baso # (Auto) 0.0 (0.0-0.1) K/uL Nucleated RBC % 0.0 /100WBC Nucleated RBCs # 0 K/uL Sodium 136 (136-145) mmol/L Potassium 3.6 (3.5-5.1) mmol/L Chloride 102 (98-107) mmol/L Carbon Dioxide 24.5 (21.0-32.0) mmol/L BUN 9 (7.0-18.0) mg/dL Creatinine 1.0 (0.6-1.0) mg/dL Est Cr Clr Drug Dosing 73.51 mL/min Estimated GFR (MDRD) > 60.0 ml/min Glucose 116 H (74-106) mg/dL Calcium 9.0 (8.5-10.1) mg/dL Total Bilirubin 0.8 (0.2-1.0) mg/dL AST 26 (15-37) IU/L ALT 33 (14-63) IU/L Alkaline Phosphatase 76 (46-116) U/L Total Protein 7.5 (6.4-8.2) g/dL Albumin 3.5 (3.4-5.0) g/dL Globulin 4.0 H (2.0-3.5) g/dL Albumin/Globulin Ratio 0.9 L (1.3-2.8) Lipase 94 (73-393) U/L Urine Color YELLOW Urine Appearance CLEAR Urine pH 7.0 (5.0-8.0) Ur Specific [place] <= 1.005 (1.001-1.035) Urine Protein NEGATIVE (NEGATIVE) mg/dL Urine Glucose (UA) NEGATIVE (NEGATIVE) mg/dL Urine Ketones NEGATIVE (NEGATIVE) mg/dL Urine Occult Blood MODERATE (NEGATIVE) Urine Nitrite NEGATIVE (NEGATIVE) Urine Bilirubin NEGATIVE (NEGATIVE) Urine Urobilinogen 0.2 (<2.0) EU/dL Ur Leukocyte Esterase NEGATIVE (NEGATIVE) Urine RBC 2-3 (0-2/HPF) Urine WBC 0-1 (0-5/HPF) Ur Epithelial Cells MANY (NONE-FEW) Urine Bacteria FEW (NEGATIVE) Med Orders - Current: Current Medications Acetaminophen (Tylenol) 650 mg PO Q4H PRN PRN Reason: Pain (Mild 1-3)/fever Sodium Chloride (Normal Saline) 1,000 mls @ 125 mls/hr IV STAT [facility] Last Admin: 10/26/17 12:46 Dose: 125 mls/hr Piperacillin Sod/Tazobactam (Sod 3.375 gm/ Sodium Chloride) 50 mls @ 100 mls/ hr IV Q6H [facility] Last Admin: 10/26/17 12:45 Dose: 100 mls/hr Ibuprofen (Motrin) 600 mg PO Q6HR [facility] Last Admin: 10/26/17 14:53 Dose: 600 mg Morphine Sulfate (Morphine) 4 mg IVPUSH Q6H PRN PRN Reason: Abdominal Pain Last Admin: 10/26/17 13:46 Dose: 4 mg Oxycodone/Acetaminophen (Percocet 325-5 Mg) 2 tab PO Q4H PRN PRN Reason: Pain (moderate 4-6) Last Admin: 10/26/17 17:13 Dose: 2 tab Discontinued Medications Acetaminophen (Tylenol) 650 mg PO NOW ONE Stop: 10/26/17 06:48 Last Admin: 10/26/17 06:50 Dose: Not Given Sodium Chloride (Normal Saline) 1,000 mls @ 999 mls/hr IV STAT ONE Stop: 10/26/17 03:50 Last Admin: 10/26/17 03:05 Dose: 999 mls/hr Clindamycin Phosphate 300 mg/ (Sodium Chloride) 52 mls @ 100 mls/hr IV ONETIME ONE Stop: 10/26/17 05:33 Last Admin: 10/26/17 05:15 Dose: Not Given Gentamicin Sulfate 80 mg/ (Sodium Chloride) 102 mls @ 200 mls/hr IV ONETIME ONE Stop: 10/26/17 05:33 Last Admin: 10/26/17 05:40 Dose: 200 mls/hr Clindamycin Phosphate 300 mg/ (Premix) 50 mls @ 150 mls/hr IV ONETIME ONE Stop: 10/26/17 05:23 Last Admin: 10/26/17 05:16 Dose: 150 mls/hr Iopamidol (Isovue-370 (76%)) 100 ml IVPUSH ONETIME STA Stop: 10/26/17 03:57 Last Admin: 10/26/17 04:15 Dose: 100 ml Lorazepam (Ativan) 1 mg IVPUSH ONETIME ONE Stop: 10/26/17 03:19 Last Admin: 10/26/17 03:24 Dose: 1 mg Metoclopramide HCl (Reglan) 10 mg IV ONETIME ONE Stop: 10/26/17 02:57 Last Admin: 10/26/17 03:09 Dose: 10 mg Morphine Sulfate (Morphine) 2 mg IVPUSH ONETIME ONE Stop: 10/26/17 02:51 Last Admin: 10/26/17 03:09 Dose: 2 mg Morphine Sulfate (Morphine) 4 mg IVPUSH ONETIME STA Stop: 10/26/17 06:49 Last Admin: 10/26/17 06:55 Dose: 4 mg Nicotine (Habitrol) 21 mg TRDERM Q24H ONE Stop: 10/26/17 14:20 Last Admin: 10/26/17 14:54 Dose: Not Given Ondansetron HCl (Zofran) 4 mg IVPUSH ONETIME ONE Stop: 10/26/17 02:57 Last Admin: 10/26/17 03:09 Dose: 4 mg Oxycodone/Acetaminophen (Percocet 325-5 Mg) 2 tab PO ONETIME ONE Stop: 10/26/17 06:47 Last Admin: 10/26/17 06:50 Dose: Not Given - Exam General: Alert, Oriented Lungs: Normal Respiratory Effort Cardiovascular: Regular Rate, Regular Rhythm GI/Abdominal Exam: Normal Bowel Sounds, Soft. No: Guarding, Rigid, Rebound Back Exam: CVA Tenderness (R) (mild, improved compared to this am) Extremities: No: Ben's Sign Psy/Mental Status: Alert - Problem List & Annotations (1) Leukocytosis SNOMED Code(s): 761992304, 923079435 Code(s): D72.829 - ELEVATED WHITE BLOOD CELL COUNT, UNSPECIFIED Status: Acute Current Visit: Yes (2) Abdominal pain SNOMED Code(s): 71322563 Code(s): R10.9 - UNSPECIFIED ABDOMINAL PAIN Status: Acute Current Visit: Yes Qualifiers: Abdominal location: lower abdomen, unspecified Qualified Code(s): R10.30 - Lower abdominal pain, unspecified - Problem List Review Problem List Initiated/Reviewed/Updated: Yes - My Orders Last 24 Hours: My Active Orders 10/26/17 14:30 Ibuprofen [Motrin] 600 mg PO Q6HR 10/27/17 05:00 CMP [COMPREHENSIVE METABOLIC PN,CMP] [CHEM] Routine - Assessment Assessment:: Leukocytosis Right flank pain Suspect UTI with moderate blood in urine and early pyelonephritis - Plan Plan:: Patient has remained afebrile throughout the day. She has good urine output and stable VS Continue iv hydration and iv antibiotics Await urine and blood culture Repeat CBC, CMP in am Patient notes she is feeling better and had a better appetite this afternoon than has had in 2 days Clinically I am suspicious for UTI, early pyelonephritis
[2017-10-27] MEDS: Piperacillin/Tazobactam 3.375 GM in Sodium Chloride 0.9% 50 ML IV SCH ×2 (01:05→06:17)
[2017-10-27] MEDS: Acetaminophen/oxyCODONE 325-5 MG Tab PO PRN ×2 (03:39→08:41)
[2017-10-27 05:28] LABS: CHLORIDE,CL 109 mmol/L (98-107); SODIUM,NA 141 mmol/L (136-145)
[2017-10-27 05:43] VITALS: BP 84/50
[2017-10-27] MEDS: Ibuprofen 600 MG Tab PO SCH (06:17)
--- NOTE | 2017-10-27 08:49 | PCM.PN ---
- General Info Date of Service: 10/27/17 Functional Status: Reports: Pain Controlled, Tolerating Diet, Ambulating, Urinating - Review of Systems General: Denies: Fever, Weakness Pulmonary: Denies: Shortness of Breath Cardiovascular: Denies: Chest Pain, Palpitations, Lightheadedness Gastrointestinal: Reports: Abdominal Pain (this is improved overall--just feels a generalized sore), Flatus. Denies: Nausea, Vomiting Genitourinary: Reports: Flank Pain (mild right flank pain with palpation, but improved from previous exams) Neurological: Reports: No Symptoms Psychiatric: Reports: No Symptoms - Patient Data Vitals - Most Recent: Last Vital Signs Temp 36.6 C 10/27/17 05:42 Pulse 80 10/27/17 05:42 Resp 19 10/27/17 05:42 BP 84/50 L 10/27/17 05:42 Pulse Ox 97 10/27/17 05:42 Weight - Most Recent: 88.6 kg I&O - Last 24 Hours: Intake & Output 10/26/17 10/27/17 10/27/17 22:59 06:59 14:59 Intake Total 250 300 Output Total 825 600 Balance -575 -300 Lab Results Last 24 Hours: Laboratory Results - last 24 hr 10/27/17 10/27/17 Range/Units 04:53 04:53 WBC 12.35 H (4.0-11.0) K/uL RBC 3.35 L (4.30-5.90) M/uL Hgb 10.3 L (12.0-16.0) g/dL Hct 31.5 L (36.0-46.0) % MCV 94.0 (80.0-98.0) fL MCH 30.7 (27.0-32.0) pg MCHC 32.7 (31.0-37.0) g/dL RDW Std Deviation 47.5 (28.0-62.0) fl RDW Coeff of Elva 14 (11.0-15.0) % Plt Count 228 (150-400) K/uL MPV 10.30 (7.40-12.00) fL Neut % (Auto) 79.8 (48.0-80.0) % Lymph % (Auto) 10.8 L (16.0-40.0) % George % (Auto) 8.1 (0.0-15.0) % Eos % (Auto) 1.1 (0.0-7.0) % Baso % (Auto) 0.2 (0.0-1.5) % Neut # (Auto) 9.9 H (1.4-5.7) K/uL Lymph # (Auto) 1.3 (0.6-2.4) K/uL George # (Auto) 1.0 H (0.0-0.8) K/uL Eos # (Auto) 0.1 (0.0-0.7) K/uL Baso # (Auto) 0.0 (0.0-0.1) K/uL Nucleated RBC % 0.0 /100WBC Nucleated RBCs # 0 K/uL Sodium 141 (136-145) mmol/L Potassium 3.6 (3.5-5.1) mmol/L Chloride 109 H (98-107) mmol/L Carbon Dioxide 23.8 (21.0-32.0) mmol/L BUN 10 (7.0-18.0) mg/dL Creatinine 1.0 (0.6-1.0) mg/dL Est Cr Clr Drug Dosing 73.51 mL/min Estimated GFR (MDRD) > 60.0 ml/min Glucose 116 H (74-106) mg/dL Calcium 7.7 L (8.5-10.1) mg/dL Total Bilirubin 0.6 (0.2-1.0) mg/dL AST 11 L (15-37) IU/L ALT 18 (14-63) IU/L Alkaline Phosphatase 50 (46-116) U/L Total Protein 5.6 L (6.4-8.2) g/dL Albumin 2.3 L (3.4-5.0) g/dL Globulin 3.3 (2.0-3.5) g/dL Albumin/Globulin Ratio 0.7 L (1.3-2.8) Roel Results Last 24 Hours: Microbiology 10/26/17 03:43 Aerobic Blood Culture - Preliminary Blood - Venous - Lab Draw NO GROWTH AFTER 1 DAY Anaerobic Blood Culture - Preliminary NO GROWTH AFTER 1 DAY 10/26/17 03:35 Aerobic Blood Culture - Preliminary Blood - Venous NO GROWTH AFTER 1 DAY Anaerobic Blood Culture - Preliminary NO GROWTH AFTER 1 DAY Med Orders - Current: Current Medications Acetaminophen (Tylenol) 650 mg PO Q4H PRN PRN Reason: Pain (Mild 1-3)/fever Sodium Chloride (Normal Saline) 1,000 mls @ 125 mls/hr IV STAT [facility] Last Admin: 10/26/17 12:46 Dose: 125 mls/hr Piperacillin Sod/Tazobactam (Sod 3.375 gm/ Sodium Chloride) 50 mls @ 100 mls/ hr IV Q6H [facility] Last Admin: 10/27/17 06:17 Dose: 100 mls/hr Ibuprofen (Motrin) 600 mg PO Q6HR [facility] Last Admin: 10/27/17 06:17 Dose: 600 mg Morphine Sulfate (Morphine) 4 mg IVPUSH Q6H PRN PRN Reason: Abdominal Pain Last Admin: 10/26/17 20:03 Dose: 4 mg Oxycodone/Acetaminophen (Percocet 325-5 Mg) 2 tab PO Q4H PRN PRN Reason: Pain (moderate 4-6) Last Admin: 10/27/17 08:41 Dose: 2 tab Discontinued Medications Acetaminophen (Tylenol) 650 mg PO NOW ONE Stop: 10/26/17 06:48 Last Admin: 10/26/17 06:50 Dose: Not Given Sodium Chloride (Normal Saline) 1,000 mls @ 999 mls/hr IV STAT ONE Stop: 10/26/17 03:50 Last Admin: 10/26/17 03:05 Dose: 999 mls/hr Clindamycin Phosphate 300 mg/ (Sodium Chloride) 52 mls @ 100 mls/hr IV ONETIME ONE Stop: 10/26/17 05:33 Last Admin: 10/26/17 05:15 Dose: Not Given Gentamicin Sulfate 80 mg/ (Sodium Chloride) 102 mls @ 200 mls/hr IV ONETIME ONE Stop: 10/26/17 05:33 Last Admin: 10/26/17 05:40 Dose: 200 mls/hr Clindamycin Phosphate 300 mg/ (Premix) 50 mls @ 150 mls/hr IV ONETIME ONE Stop: 10/26/17 05:23 Last Admin: 10/26/17 05:16 Dose: 150 mls/hr Iopamidol (Isovue-370 (76%)) 100 ml IVPUSH ONETIME STA Stop: 10/26/17 03:57 Last Admin: 10/26/17 04:15 Dose: 100 ml Lorazepam (Ativan) 1 mg IVPUSH ONETIME ONE Stop: 10/26/17 03:19 Last Admin: 10/26/17 03:24 Dose: 1 mg Metoclopramide HCl (Reglan) 10 mg IV ONETIME ONE Stop: 10/26/17 02:57 Last Admin: 10/26/17 03:09 Dose: 10 mg Morphine Sulfate (Morphine) 2 mg IVPUSH ONETIME ONE Stop: 10/26/17 02:51 Last Admin: 10/26/17 03:09 Dose: 2 mg Morphine Sulfate (Morphine) 4 mg IVPUSH ONETIME STA Stop: 10/26/17 06:49 Last Admin: 10/26/17 06:55 Dose: 4 mg Nicotine (Habitrol) 21 mg TRDERM Q24H ONE Stop: 10/26/17 14:20 Last Admin: 10/26/17 14:54 Dose: Not Given Ondansetron HCl (Zofran) 4 mg IVPUSH ONETIME ONE Stop: 10/26/17 02:57 Last Admin: 10/26/17 03:09 Dose: 4 mg Oxycodone/Acetaminophen (Percocet 325-5 Mg) 2 tab PO ONETIME ONE Stop: 10/26/17 06:47 Last Admin: 10/26/17 06:50 Dose: Not Given - Exam General: Alert, Oriented Lungs: Normal Respiratory Effort Cardiovascular: Regular Rate, Regular Rhythm GI/Abdominal Exam: Normal Bowel Sounds, Soft. No: Guarding, Rigid, Rebound Back Exam: CVA Tenderness (R) Extremities: Pedal Edema (trace). No: Ben's Sign Skin: Warm, Dry, Intact Psy/Mental Status: Alert - Problem List & Annotations (1) Leukocytosis SNOMED Code(s): 714569705, 206845540 Code(s): D72.829 - ELEVATED WHITE BLOOD CELL COUNT, UNSPECIFIED Status: Acute Current Visit: Yes (2) Abdominal pain SNOMED Code(s): 35641320 Code(s): R10.9 - UNSPECIFIED ABDOMINAL PAIN Status: Acute Current Visit: Yes Qualifiers: Abdominal location: lower abdomen, unspecified Qualified Code(s): R10.30 - Lower abdominal pain, unspecified - Problem List Review Problem List Initiated/Reviewed/Updated: Yes - My Orders Last 24 Hours: My Active Orders 10/26/17 14:30 Ibuprofen [Motrin] 600 mg PO Q6HR 10/26/17 Dinner Regular Diet [DIET] - Assessment Assessment:: Leukocytosis--improved Right flank pain--improved Suspect UTI with moderate blood in urine and early pyelonephritis - Plan Plan:: Patient rested through the night, is tolerating regular diet, voiding with much less discomfort (denies pain) and has just a generalized soreness at this time. She is passing flatus easily. She has scant vaginal bleeding and no malodorous vaginal discharge. She has remained afebrile during her course of observation. Her VS are stable and white count has decreased to 12, 000. Creatinine is stable. She would like to go home. Initial blood culture is negative. Urine culture pending. Given afebrile with normalizing white count, believe reasonable to allow patient to be discharged to home with oral antibiotics. She is to stay well hydrated. She is to call with a temperature 101 and will follow up in clinic early next week. She agrees to plan of care. Rx for augmentin sent into [facility].
== END 2017-10-27 10:15 | disposition home or self-care (01) | DRG 690 ==
LOC: MW.ED 02:39 → MW.MS 05:28 → OBSVTOIN 06:36
PROVIDERS: ADMIT Obstetrics & Gynecology; ATTEND Obstetrics & Gynecology
DX: N39.0 Urinary tract infection, site not specified (principal); N12 Tubulo-interstitial nephritis, not specified as acute or chronic; D72.829 Elevated white blood cell count, unspecified; F41.8 Other specified anxiety disorders; F17.200 Nicotine dependence, unspecified, uncomplicated; Z88.8 Allergy status to other drugs, medicaments and biological substances; Z79.899 Other long term (current) drug therapy; Z98.890 Other specified postprocedural states
CPT/HCPCS: 36415; 74178; 74178-26; 80053; 81001; 83690; 85025; 87040; 87070; 87086; 96361; 96365; 96367; 96375; 96376; 99285-25; A9270-GY; J1580; J2060; J2270; J2405; J2543; J2765; J7030; J7040; J7050; Q9967

== ENCOUNTER 2018-08-15 14:16 | Emergency (ER) | payer OTHER, SELFPAY ==
--- NOTE | 2018-08-15 14:38 | EDM.PDOC ---
ED HPI GENERAL MEDICAL PROBLEM - General Chief Complaint: General Stated Complaint: BACK PAIN, SICK Time Seen by Provider: 08/15/18 14:35 Source of Information: Reports: Patient History Limitations: Reports: No Limitations - History of Present Illness INITIAL COMMENTS - FREE TEXT/NARRATIVE: HISTORY AND PHYSICAL: History of present illness: Patient is a 37-year-old female who presents to the ED today with concerns of being tired, sore throat, headache, and low back pain x 4 days. Patient states that today she was so tired and unable to get out of bed that she could not bring her children's school. She states that she feels so tired as if she cannot get out of bed. She says alongside that she has a headache and generalized low back pain that she rates an 8/10. She denies any injury or trauma to her back. She states she's also felt dizzy but has not been drinking as much as she would normally. She states she has also had acute onset of swelling in her legs. She did have swelling in her legs throughout her but that that this is not normal for her. She denies any trauma or injury to her legs. Patient has a history of IgA nephropathy, meningitis when she was 3 years old, and mono. Patient denies fever, chills, nuchal rigidity, nausea, vomiting, abdominal pain , chest pain, shortness of breath, difficulties urinating or having bowel movements, blood in urine or stool Review of systems: As per history of present illness and below otherwise all systems reviewed and negative. Past medical history: As per history of present illness and as reviewed below otherwise noncontributory. Surgical history: As per history of present illness and as reviewed below otherwise noncontributory. Social history: See social history for further information Family history: As per history of present illness and as reviewed below otherwise noncontributory. Physical exam: General: Patient is alert, oriented, and in no acute distress. She is tired appearing but lying comfortably on exam table. HEENT: Atraumatic, normocephalic, pupils equal and reactive bilaterally, negative for conjunctival pallor or scleral icterus, mucous membranes moist, TMs normal bilaterally, throat is moderately erythematous without exudate, neck supple, nontender, trachea midline. No drooling or trismus noted. No meningeal signs. No hot potato voice noted. Lungs: Clear to auscultation, breath sounds equal bilaterally, chest nontender. Heart: S1S2, regular rate and rhythm without overt murmur Abdomen: Soft, nondistended, nontender. Negative for masses or hepatosplenomegaly. Negative for costovertebral tenderness. Pelvis: Stable nontender. Genitourinary: Deferred. Rectal: Deferred. Skin: Intact, warm, dry. No lesions or rashes noted. Extremities: Bilateral 2+ pitting edema to the knee. Mild/moderate pain to palpation of the generlized lower back. Atraumatic, negative for cords or calf pain. Neurovascular unremarkable. No neck stiffness, no nuchal rigidity. Neuro: Awake, alert, oriented. Cranial nerves II through XII unremarkable. Cerebellum unremarkable. Motor and sensory unremarkable throughout. Exam nonfocal. Notes: Patient does have a history of proteinuria which has been followed up in the past. She has had several imaging modalities to assess the cause for proteinuria. Performed labs and imaging today. Head CT shows no acute intracranial findings.Patient's labs are unremarkable. She does have some proteinuria and blood in her urine. We'll await for imaging. CT of the abdomen and pelvis shows no acute findings. There is a punctate nonobstructing stone within the mid pole of the left kidney. Lumbar spine is of normal alignment. Vertebral body height and disc spacing is well-maintained. 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 Review this with the patient, she did mention she had a history of meningitis and did express some concern that this is a possibility today. We discussed in great length risks versus benefits of doing a lumbar puncture. This was offered today , she declines. Upon preparing the patient for discharge she is requesting some Flexeril for her back pain. Medication education was reviewed and discussed. Supportive care measures were reviewed and discussed. Voices understanding and is agreeable to plan of care. Denies any further questions or concerns at this time. Diagnostics: CBC, CMP, UA, urine hCG, BNP, influenza, strep, head ct Therapeutics: Saline Prescription: Flexeril (#12) Impression: Proteinuria, unspecified Lumbago, unspecified Plan: 1. Keep your MRI and follow-up as scheduled. 2. Continue to use Tylenol as directed for pain management. 3. Follow-up with your primary care provider as discussed. 4. Return to the ED as needed and as discussed. Definitive disposition and diagnosis as appropriate pending reevaluation and review of above. Back Pain Pain Score (Numeric/FACES): 4 - Related Data Allergies Allergy/AdvReac Type Severity Reaction Status Date / Time ketorolac [From Toradol] Allergy Itching Verified 10/26/17 02:50 tramadol Allergy Rash Verified 10/26/17 02:50 Home Meds: Home Meds ClonazePAM [KlonoPIN] 0.5 mg PO BID 12/28/15 [History] Gabapentin [Neurontin] 300 mg PO QID 10/12/17 [History] Past Medical History - Past Health History Medical/Surgical History: Denies Medical/Surgical History HEENT History: Reports: Other (See Below) Other HEENT History: wears glasses/contacts Gastrointestinal History: Reports: Other (See Below) Other Gastrointestinal History: occasional heartburn Genitourinary History: Reports: Pyelonephritis, UTI, Recurrent, Other (See Below ) Other Genitourinary History: [employer] History: Reports: Musculoskeletal History: Reports: Fracture Other Musculoskeletal History: hx fx wrist Neurological History: Reports: Other (See Below) Other Neuro History: Nerve pain in legs, 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 Psychiatric History: Reports: Anxiety, Depression - Infectious Disease History Infectious Disease History: Reports: Meningitis - Past Surgical History Head Surgeries/Procedures: Reports: None HEENT Surgical History: Reports: Oral Surgery Female Surgical History: Reports: Hysterectomy Musculoskeletal Surgical History: Reports: Arthroscopic Knee Social & Family History - Family History Family Medical History: Noncontributory - Tobacco Use Smoking Status *Q: Current Every Day Smoker Years of Tobacco use: 15 Packs/Tins Daily: 1 - Caffeine Use Caffeine Use: Reports: Coffee - Recreational Drug Use Recreational Drug Use: No ED ROS GENERAL - Review of Systems Review Of Systems: ROS reveals no pertinent complaints other than HPI. ED EXAM, GENERAL - Physical Exam Exam: See Below (See dictation) Course - Vital Signs Last Recorded V/S: Last Vital Signs Temp 97.1 F 08/15/18 14:25 Pulse 77 08/15/18 14:25 Resp 16 08/15/18 14:25 BP 117/72 08/15/18 14:25 Pulse Ox 96 08/15/18 14:25 - Orders/Labs/Meds Orders: Active Orders 24 hr Category Date Time Status CULTURE STREP A CONFIRMATION [RM] Stat Lab 08/15/18 15:33 Results STREP SCRN A RAPID W CULT CONF [RM] Stat Lab 08/15/18 15:33 Results Labs: Laboratory Tests 08/15/18 08/15/18 08/15/18 Range/Units 14:38 14:38 14:51 WBC 8.45 (4.0-11.0) K/uL RBC 4.13 L (4.30-5.90) M/uL Hgb 13.0 (12.0-16.0) g/dL Hct 38.7 (36.0-46.0) % MCV 93.7 (80.0-98.0) fL MCH 31.5 (27.0-32.0) pg MCHC 33.6 (31.0-37.0) g/dL RDW Std Deviation 45.5 (28.0-62.0) fl RDW Coeff of Elva 13 (11.0-15.0) % Plt Count 218 (150-400) K/uL MPV 10.60 (7.40-12.00) fL Neut % (Auto) 56.8 (48.0-80.0) % Lymph % (Auto) 34.3 (16.0-40.0) % Ralls % (Auto) 7.0 (0.0-15.0) % Eos % (Auto) 1.5 (0.0-7.0) % Baso % (Auto) 0.4 (0.0-1.5) % Neut # (Auto) 4.8 (1.4-5.7) K/uL Lymph # (Auto) 2.9 H (0.6-2.4) K/uL Ralls # (Auto) 0.6 (0.0-0.8) K/uL Eos # (Auto) 0.1 (0.0-0.7) K/uL Baso # (Auto) 0.0 (0.0-0.1) K/uL Nucleated RBC % 0.0 /100WBC Nucleated RBCs # 0 K/uL Sodium (136-145) mmol/L Potassium (3.5-5.1) mmol/L Chloride (98-107) mmol/L Carbon Dioxide (21.0-32.0) mmol/L BUN (7.0-18.0) mg/dL Creatinine (0.6-1.0) mg/dL Est Cr Clr Drug Dosing mL/min Estimated GFR (MDRD) ml/min Glucose (74-106) mg/dL Calcium (8.5-10.1) mg/dL Total Bilirubin (0.2-1.0) mg/dL AST (15-37) IU/L ALT (14-63) IU/L Alkaline Phosphatase (46-116) U/L Creatine Kinase (26-308) U/L B-Natriuretic Peptide (<100) PG/ML Total Protein (6.4-8.2) g/dL Albumin (3.4-5.0) g/dL Globulin (2.6-4.0) g/dL Albumin/Globulin Ratio (0.9-1.6) Urine Color YELLOW Urine Appearance CLEAR Urine pH 8.0 (5.0-8.0) Ur Specific Sheffield 1.015 (1.001-1.035) Urine Protein 30 H (NEGATIVE) mg/dL Urine Glucose (UA) NEGATIVE (NEGATIVE) mg/dL Urine Ketones NEGATIVE (NEGATIVE) mg/dL Urine Occult Blood LARGE H (NEGATIVE) Urine Nitrite NEGATIVE (NEGATIVE) Urine Bilirubin NEGATIVE (NEGATIVE) Urine Urobilinogen 1.0 (<2.0) EU/dL Ur Leukocyte Esterase NEGATIVE (NEGATIVE) Urine RBC 10-15 (0-2/HPF) Urine WBC 0-2 (0-5/HPF) Ur Epithelial Cells MANY (NONE-FEW) Urine Bacteria FEW (NEGATIVE) Urine HCG, Qual NEGATIVE (NEGATIVE) Monoscreen (NEG) 08/15/18 08/15/18 08/15/18 Range/Units 14:51 14:51 14:51 WBC (4.0-11.0) K/uL RBC (4.30-5.90) M/uL Hgb (12.0-16.0) g/dL Hct (36.0-46.0) % MCV (80.0-98.0) fL MCH (27.0-32.0) pg MCHC (31.0-37.0) g/dL RDW Std Deviation (28.0-62.0) fl RDW Coeff of Elva (11.0-15.0) % Plt Count (150-400) K/uL MPV (7.40-12.00) fL Neut % (Auto) (48.0-80.0) % Lymph % (Auto) (16.0-40.0) % Ralls % (Auto) (0.0-15.0) % Eos % (Auto) (0.0-7.0) % Baso % (Auto) (0.0-1.5) % Neut # (Auto) (1.4-5.7) K/uL Lymph # (Auto) (0.6-2.4) K/uL Ralls # (Auto) (0.0-0.8) K/uL Eos # (Auto) (0.0-0.7) K/uL Baso # (Auto) (0.0-0.1) K/uL Nucleated RBC % /100WBC Nucleated RBCs # K/uL Sodium 140 (136-145) mmol/L Potassium 3.5 (3.5-5.1) mmol/L Chloride 105 (98-107) mmol/L Carbon Dioxide 27.7 (21.0-32.0) mmol/L BUN 5 L (7.0-18.0) mg/dL Creatinine 1.0 (0.6-1.0) mg/dL Est Cr Clr Drug Dosing 72.81 mL/min Estimated GFR (MDRD) > 60.0 ml/min Glucose 85 (74-106) mg/dL Calcium 8.3 L (8.5-10.1) mg/dL Total Bilirubin 0.3 (0.2-1.0) mg/dL AST 19 (15-37) IU/L ALT 24 (14-63) IU/L Alkaline Phosphatase 58 (46-116) U/L Creatine Kinase 202 (26-308) U/L B-Natriuretic Peptide (<100) PG/ML Total Protein 6.4 (6.4-8.2) g/dL Albumin 2.9 L (3.4-5.0) g/dL Globulin 3.5 (2.6-4.0) g/dL Albumin/Globulin Ratio 0.8 L (0.9-1.6) Urine Color Urine Appearance Urine pH (5.0-8.0) Ur Specific Sheffield (1.001-1.035) Urine Protein (NEGATIVE) mg/dL Urine Glucose (UA) (NEGATIVE) mg/dL Urine Ketones (NEGATIVE) mg/dL Urine Occult Blood (NEGATIVE) Urine Nitrite (NEGATIVE) Urine Bilirubin (NEGATIVE) Urine Urobilinogen (<2.0) EU/dL Ur Leukocyte Esterase (NEGATIVE) Urine RBC (0-2/HPF) Urine WBC (0-5/HPF) Ur Epithelial Cells (NONE-FEW) Urine Bacteria (NEGATIVE) Urine HCG, Qual (NEGATIVE) Monoscreen NEGATIVE (NEG) 08/15/18 Range/Units 14:51 WBC (4.0-11.0) K/uL RBC (4.30-5.90) M/uL Hgb (12.0-16.0) g/dL Hct (36.0-46.0) % MCV (80.0-98.0) fL MCH (27.0-32.0) pg MCHC (31.0-37.0) g/dL RDW Std Deviation (28.0-62.0) fl RDW Coeff of Elva (11.0-15.0) % Plt Count (150-400) K/uL MPV (7.40-12.00) fL Neut % (Auto) (48.0-80.0) % Lymph % (Auto) (16.0-40.0) % Ralls % (Auto) (0.0-15.0) % Eos % (Auto) (0.0-7.0) % Baso % (Auto) (0.0-1.5) % Neut # (Auto) (1.4-5.7) K/uL Lymph # (Auto) (0.6-2.4) K/uL Ralls # (Auto) (0.0-0.8) K/uL Eos # (Auto) (0.0-0.7) K/uL Baso # (Auto) (0.0-0.1) K/uL Nucleated RBC % /100WBC Nucleated RBCs # K/uL Sodium (136-145) mmol/L Potassium (3.5-5.1) mmol/L Chloride (98-107) mmol/L Carbon Dioxide (21.0-32.0) mmol/L BUN (7.0-18.0) mg/dL Creatinine (0.6-1.0) mg/dL Est Cr Clr Drug Dosing mL/min Estimated GFR (MDRD) ml/min Glucose (74-106) mg/dL Calcium (8.5-10.1) mg/dL Total Bilirubin (0.2-1.0) mg/dL AST (15-37) IU/L ALT (14-63) IU/L Alkaline Phosphatase (46-116) U/L Creatine Kinase (26-308) U/L B-Natriuretic Peptide 50 (<100) PG/ML Total Protein (6.4-8.2) g/dL Albumin (3.4-5.0) g/dL Globulin (2.6-4.0) g/dL Albumin/Globulin Ratio (0.9-1.6) Urine Color Urine Appearance Urine pH (5.0-8.0) Ur Specific Sheffield (1.001-1.035) Urine Protein (NEGATIVE) mg/dL Urine Glucose (UA) (NEGATIVE) mg/dL Urine Ketones (NEGATIVE) mg/dL Urine Occult Blood (NEGATIVE) Urine Nitrite (NEGATIVE) Urine Bilirubin (NEGATIVE) Urine Urobilinogen (<2.0) EU/dL Ur Leukocyte Esterase (NEGATIVE) Urine RBC (0-2/HPF) Urine WBC (0-5/HPF) Ur Epithelial Cells (NONE-FEW) Urine Bacteria (NEGATIVE) Urine HCG, Qual (NEGATIVE) Monoscreen (NEG) Meds: Medications Discontinued Medications Generic Name Dose Route Start Last Admin Trade Name Freq PRN Reason Stop Dose Admin Sodium Chloride 1,000 mls @ 999 mls/hr 08/15/18 14:39 08/15/18 15:04 Normal Saline IV 08/15/18 15:39 999 mls/hr STAT ONE Administration Morphine Sulfate 2 mg 08/15/18 15:07 08/15/18 15:34 Morphine IVPUSH 08/15/18 15:08 2 mg ONETIME ONE Administration Departure - Departure Time of Disposition: 16:50 Disposition: Home, Self-Care 01 Clinical Impression: Lumbago Qualifiers: Chronicity: unspecified Back pain laterality: unspecified Sciatica presence: without sciatica Qualified Code(s): M54.5 - Low back pain Proteinuria Qualifiers: Proteinuria type: unspecified Qualified Code(s): R80.9 - Proteinuria, unspecified - Discharge Information Instructions: Back Pain, Adult, [id number], Proteinuria Referrals: PCP,Unknown [Primary Care Provider] - Forms: ED Department Discharge Additional Instructions: The following information is given to patients seen in the emergency department who are being discharged to home. This information is to outline your options for follow-up care. We provide all patients seen in our emergency department with a follow-up referral. The need for follow-up, as well as the timing and circumstances, are variable depending upon the specifics of your emergency department visit. If you don't have a primary care physician on staff, we will provide you with a referral. We always advise you to contact your personal physician following an emergency department visit to inform them of the circumstance of the visit and for follow-up with them and/or the need for any referrals to a consulting specialist. The emergency department will also refer you to a specialist when appropriate. This referral assures that you have the opportunity for follow-up care with a specialist. All of these measure are taken in an effort to provide you with optimal care, which includes your follow-up. Under all circumstances we always encourage you to contact your private physician who remains a resource for coordinating your care. When calling for follow-up care, please make the office aware that this follow-up is from your recent emergency room visit. If for any reason you are refused follow-up, please contact the [facility] Emergency [facility] at and asked to speak to the emergency department charge nurse. [facility] [address] [place] [address] [place] [address] 1. Keep your MRI and follow-up as scheduled. 2. Continue to use Tylenol as directed for pain management. 3. Follow-up with your primary care provider as discussed. 4. Return to the ED as needed and as discussed. - My Orders Last 24 Hours: My Active Orders 08/15/18 15:33 CULTURE STREP A CONFIRMATION [RM] Stat STREP SCRN A RAPID W CULT CONF [RM] Stat - Assessment/Plan Last 24 Hours: My Active Orders 08/15/18 15:33 CULTURE STREP A CONFIRMATION [RM] Stat STREP SCRN A RAPID W CULT CONF [RM] Stat
[2018-08-15] MEDS ORDERED: Sodium Chloride 0.9% 1,000 ML IV ONE (14:39)
[2018-08-15] MEDS ORDERED: Morphine 2 MG/ML Syringe IVPUSH ONE (15:07)
[2018-08-15 15:54] LABS: CHLORIDE,CL 105 mmol/L (98-107); SODIUM,NA 140 mmol/L (136-145)
--- NOTE | 2018-08-15 16:09 | CT ---
EXAMINATION: Non contrast CT head. Coronal and sagittal reformats. HISTORY: Pain FINDINGS: No evidence of intra or extra axial hemorrhage, mass, midline shift, hydrocephalus or edema. No hypoattenuation changes in the major vascular territories to suggest acute infarct. No abnormal intracranial calcifications are detected. No evidence of substantial vascular calcifications. There is moderate mucosal thickening within the right maxillary sinus and a moderate left mucous retention cyst. Mastoid air cells and middle ears are clear. Orbits and globes are symmetric. Pituitary fossa appears unremarkable. Calvarium is intact. No evidence of skull fracture. IMPRESSION: 1. No acute intracranial findings. 2. Mild paranasal sinus disease.
--- NOTE | 2018-08-15 16:34 | CT ---
CT of the abdomen and pelvis and lumbar spine without contrast. HISTORY: Pain TECHNIQUE: Axial CT images were obtained of the abdomen and pelvis without contrast. Coronal and sagittal reconstructions obtained. FINDINGS: Abdomen and pelvis: Minimal atelectasis within the lung bases. The liver, spleen, adrenal glands, and pancreas appear unremarkable for noncontrast examination. The gallbladder appears normal. There is no bulky retroperitoneal lymphadenopathy. No abdominal ascites. Punctate nonobstructing stone within the lower pole of the left kidney. Likely tiny cyst within the midpole of the left kidney as well. No evidence of obstructive uropathy bilaterally. The large and small bowel are normal in caliber without evidence of obstruction. The appendix appears normal. There is no bulky pelvic lymphadenopathy. No free fluid. No free air. The urinary bladder appears normal. Lumbar spine: The lumbar spinal alignment is normal. Vertebral body heights and disc spaces appear well-maintained. There is chronic bilateral spondylolysis at L5 without significant spondylolisthesis. IMPRESSION: 1. No acute findings noted within the abdomen or pelvis. 2. Punctate nonobstructing stone within the midpole of the left kidney.
[2018-08-15 17:29] VITALS: BP 111/81
== END 2018-08-15 17:19 | disposition home or self-care (01) ==
LOC: MW.ED 14:16
DX: M54.5 Low back pain (principal); R80.9 Proteinuria, unspecified; F17.210 Nicotine dependence, cigarettes, uncomplicated; Z88.6 Allergy status to analgesic agent; Z88.5 Allergy status to narcotic agent
CPT/HCPCS: 36415; 70450; 72131; 74176; 80053; 81001; 81025; 82550; 83880; 85025; 86308; 87081; 87804; 87880; 96361; 96374; 99284; J2270; J7040

== ENCOUNTER 2019-08-29 11:18 | Emergency (ER) | payer SELFPAY ==
[2019-08-29 11:38] VITALS: BP 123/87; PULSE 78
--- NOTE | 2019-08-29 11:49 | EDM.PDOC ---
ED HPI GENERAL MEDICAL PROBLEM - General Chief Complaint: Genitourinary Problem Stated Complaint: KIDNEY INFECTION Time Seen by Provider: 08/29/19 11:20 Source of Information: Reports: Patient History Limitations: Reports: No Limitations - History of Present Illness INITIAL COMMENTS - FREE TEXT/NARRATIVE: HISTORY AND PHYSICAL: History of present illness: Patient is a 38-year-old female who presents to the emergency room with complaints of low back pain and dysuria x4 to 5 days. Patient reports that she does have chronic kidney disease, has a senior payroll administrator in [place] which she sees routinely. She did call her senior payroll administrator a few days ago who ordered an ultrasound and outpatient lab work but states she has not received any medication for her suspected kidney infection. She did have labs here on 2019 which showed an elevated white count and +4 bacteria in her urine. She states she was told she has kidney stones (within the kidney) which will not require further attention, just monitoring. She attempted to call her senior payroll administrator today who wanted her to give a repeat sample of her urine (for culture), and was encouraged to come into the emergency room if she felt she needed narcotic pain medications. Patient states she is frustrated as she has not been prescribed anything for pain and is here more so for pain management rather than the antibiotic prescription that she was anticipating from her senior payroll administrator. Patient denies any fever, chills, headache, change in vision, syncope or near syncope. Denies any chest pain, back pain, shortness of breath or cough. Denies any abdominal pain, nausea, vomiting, diarrhea, or constipation. Has not noted any blood in urine or stool. Denies any chance of ; hysterectomy. Patient has been eating and drinking appropriately. Review of systems: As per history of present illness and below otherwise all systems reviewed and negative. Past medical history: As per history of present illness and as reviewed below otherwise noncontributory. Surgical history: As per history of present illness and as reviewed below otherwise noncontributory. Social history: See social history for further information Family history: As per history of present illness and as reviewed below otherwise noncontributory. Physical exam: General: Well developed and well nourished 38-year-old female. Alert and oriented. Nontoxic-appearing and in no acute distress. HEENT: Atraumatic, normocephalic, pupils equal and reactive bilaterally, negative for conjunctival pallor or scleral icterus, mucous membranes moist, TMs normal bilaterally, throat clear, neck supple, nontender, trachea midline. No drooling or trismus noted. No meningeal signs. No hot potato voice noted. Lungs: Clear to auscultation, breath sounds equal bilaterally, chest nontender. Heart: S1S2, regular rate and rhythm without overt murmur Abdomen: Soft, nondistended, nontender. Negative for masses or hepatosplenomegaly. Mild bilateral costovertebral tenderness. Pelvis: Stable nontender. Skin: Intact, warm, dry. No lesions or rashes noted. Extremities: Atraumatic, moves all extremities per self without difficulty or deficits, negative for cords or calf pain. Neurovascular unremarkable. Neuro: Awake, alert, oriented. Cranial nerves II through XII unremarkable. Cerebellum unremarkable. Motor and sensory unremarkable throughout. Exam nonfocal. Notes: Nursing staff was able to call [facility] to get her previous prescriptions as she was stating she was not taking anything. Her senior payroll administrator did call in a prescription for Levaquin 500 mg once daily x7 days this has not yet been picked up. She also within the past 5 days has a new prescription for gabapentin and Ativan, these were picked up. Physical examination is normal. She does have mild flank tenderness, states it' s moreso in her low back. She is agreeable to repeat CBC. Her WBC is up since her previous lab draw, patient is made aware of this. We discussed a dose of IV abx while here; she states she wants to be discharged and does not want to be in the ER or the hospital (due to the COVID-19 pandemic). She wants to go home. She is agreeable to IM Rocephin. She has not had any n/v. She had not yet started her abx. We discussed the need to monitor her symptoms closely, if her symptoms don't improve or worsen she may need to be hospitalized. She agrees to this. Supportive care measures were reviewed and discussed. Voices understanding and is agreeable to plan of care. Denies any further questions or concerns at this time. Diagnostics: CBC Therapeutics: Rocephin Prescription: Tylenol #3 Impression: Pyelonephritis Plan: 1. Increase your oral fluids. 2. Take your home medications as prescribed. Your senior payroll administrator has prescribed you Levaquin 500mg once daily x 7 days; START this today. You need to follow up with your specialist for your chronic kidney disease. 3. Return to the ED as needed as discussed. Definitive disposition and diagnosis as appropriate pending reevaluation and review of above. Back Pain Score (Numeric/FACES): 7 - Related Data Allergies Allergy/AdvReac Type Severity Reaction Status Date / Time ketorolac [From Toradol] Allergy Itching Verified 08/29/19 11:30 tramadol Allergy Rash Verified 08/29/19 11:30 Home Meds: Home Meds Acetaminophen with Codeine [Tylenol with Codeine #3 Tablet] 1 each PO Q4HR PRN # 10 tablet 08/29/19 [Rx] Cyclobenzaprine HCl 10 mg PO BEDTIME 08/29/19 [History] FLUoxetine HCl [Fluoxetine HCl] 40 mg PO DAILY 08/29/19 [History] Fluconazole [Diflucan] 150 mg PO ONETIME #1 tab 08/29/19 [Rx] Gabapentin [Neurontin] 2 cap PO TID 08/29/19 [History] Hydrocodone/Acetaminophen [Hydrocodon-Acetaminophen 5-325] 1 tab PO DAILY PRN [History] LORazepam [Ativan] 0.5 mg PO TID 08/29/19 [History] Levofloxacin [Levaquin] 500 mg PO DAILY 08/29/19 [History] Lisinopril [Zestril] 2.5 mg PO DAILY 08/29/19 [History] buPROPion HCL [Bupropion HCl Sr] 300 mg PO DAILY 08/29/19 [History] busPIRone [Buspar] 15 mg PO BID 08/29/19 [History] lamoTRIgine [Lamotrigine] 25 mg PO DAILY 08/29/19 [History] Past Medical History - Past Health History Medical/Surgical History: Denies Medical/Surgical History HEENT History: Reports: Other (See Below) Other HEENT History: wears glasses/contacts Gastrointestinal History: Reports: Other (See Below) Other Gastrointestinal History: occasional heartburn Genitourinary History: Reports: Pyelonephritis, UTI, Recurrent, Other (See Below ) 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: Musculoskeletal History: Reports: Fracture Other Musculoskeletal History: hx fx wrist Neurological History: Reports: Other (See Below) Other Neuro History: Nerve pain in legs, 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 ED EXAM, RENAL/ - Physical Exam Exam: See Below (See dictation) Course - Vital Signs Last Recorded V/S: Last Vital Signs Temp 96.2 F L 08/29/19 11:31 Pulse 78 08/29/19 11:31 Resp 17 08/29/19 11:31 BP 123/87 08/29/19 11:31 Pulse Ox 99 08/29/19 11:31 - Orders/Labs/Meds Labs: Laboratory Tests 08/29/19 Range/Units 11:46 WBC 17.02 H (4.0-11.0) K/uL RBC 4.29 L (4.30-5.90) M/uL Hgb 13.8 (12.0-16.0) g/dL Hct 41.7 (36.0-46.0) % MCV 97.2 (80.0-98.0) fL MCH 32.2 H (27.0-32.0) pg MCHC 33.1 (31.0-37.0) g/dL RDW Std Deviation 47.0 (28.0-62.0) fl RDW Coeff of Elva 13 (11.0-15.0) % Plt Count 288 (150-400) K/uL MPV 10.30 (7.40-12.00) fL Neut % (Auto) 80.5 H (48.0-80.0) % Lymph % (Auto) 13.5 L (16.0-40.0) % [place] % (Auto) 5.8 (0.0-15.0) % Eos % (Auto) 0.1 (0.0-7.0) % Baso % (Auto) 0.1 (0.0-1.5) % Neut # (Auto) 13.7 H (1.4-5.7) K/uL Lymph # (Auto) 2.3 (0.6-2.4) K/uL [place] # (Auto) 1.0 H (0.0-0.8) K/uL Eos # (Auto) 0.0 (0.0-0.7) K/uL Baso # (Auto) 0.0 (0.0-0.1) K/uL Nucleated RBC % 0.0 /100WBC Nucleated RBCs # 0 K/uL Meds: Medications Discontinued Medications Generic Name Dose Route Start Last Admin Trade Name Freq PRN Reason Stop Dose Admin Ceftriaxone Sodium 1 gm 08/29/19 11:54 08/29/19 12:08 Rocephin IM 08/29/19 11:55 1 gm ONETIME ONE Administration Lidocaine HCl 2 ml 08/29/19 11:58 08/29/19 12:09 Xylocaine-Mpf 1% INJECT 08/29/19 11:59 2 ml ONETIME ONE Administration Departure - Departure Time of Disposition: 12:27 Disposition: Home, Self-Care 01 Clinical Impression: Pyelonephritis - Discharge Information Prescriptions: Acetaminophen with Codeine [Tylenol with Codeine #3 Tablet] 1 each PO Q4HR PRN # 10 tablet PRN Reason: Pain Fluconazole [Diflucan] 150 mg PO ONETIME #1 tab Instructions: Urinary Tract Infection, Adult, [id number], Pyelonephritis, Adult, [id number] Referrals: Virginia Vargas PA [Primary Care Provider] - Forms: ED Department Discharge Additional Instructions: The following information is given to patients seen in the emergency department who are being discharged to home. This information is to outline your options for follow-up care. We provide all patients seen in our emergency department with a follow-up referral. The need for follow-up, as well as the timing and circumstances, are variable depending upon the specifics of your emergency department visit. If you don't have a primary care physician on staff, we will provide you with a referral. We always advise you to contact your personal physician following an emergency department visit to inform them of the circumstance of the visit and for follow-up with them and/or the need for any referrals to a consulting specialist. The emergency department will also refer you to a specialist when appropriate. This referral assures that you have the opportunity for follow-up care with a specialist. All of these measure are taken in an effort to provide you with optimal care, which includes your follow-up. Under all circumstances we always encourage you to contact your private physician who remains a resource for coordinating your care. When calling for follow-up care, please make the office aware that this follow-up is from your recent emergency room visit. If for any reason you are refused follow-up, please contact the [facility] Emergency Department at and asked to speak to the emergency department charge nurse. [facility] [address] [place] [address] [id number] [facility] [address] [place] [id number] 1. Increase your oral fluids. 2. Take your home medications as prescribed. Your senior payroll administrator has prescribed you Levaquin 500mg once daily x 7 days; START this today. You need to follow up with your specialist for your chronic kidney disease. 3. Return to the ED as needed as discussed. Sepsis Event Note - Focused Exam Vital Signs: Vital Signs Temp Pulse Resp BP Pulse Ox 08/29/19 11:31 96.2 F L 78 17 123/87 99 Date Exam was Performed: 08/29/19 Time Exam was Performed: 12:22
[2019-08-29] MEDS ORDERED: cefTRIAXone 1 GM Vial IM ONE (11:54)
[2019-08-29] MEDS ORDERED: Lidocaine 1% PF 2 ML SDV INJECT ONE (11:58)
== END 2019-08-29 12:34 | disposition home or self-care (01) ==
LOC: MW.ED 11:18
DX: N12 Tubulo-interstitial nephritis, not specified as acute or chronic (principal); F41.9 Anxiety disorder, unspecified; F32.9 Major depressive disorder, single episode, unspecified; Z88.8 Allergy status to other drugs, medicaments and biological substances; Z88.5 Allergy status to narcotic agent; Z79.899 Other long term (current) drug therapy
CPT/HCPCS: 36415; 85025; 96372; 99283; J0696; J2001

== ENCOUNTER 2019-10-20 21:44 | Emergency (ER) | payer OTHER, SELFPAY ==
--- NOTE | 2019-10-20 22:14 | EDM.PDOC ---
ED HPI GENERAL MEDICAL PROBLEM - General Chief Complaint: Lower Extremity Injury/Pain Stated Complaint: LEFT FOOT TOE PAIN Time Seen by Provider: 10/20/19 22:06 Source of Information: Reports: Patient History Limitations: Reports: No Limitations - History of Present Illness INITIAL COMMENTS - FREE TEXT/NARRATIVE: 38-year-old female presents the emergency room chief complaint of toe pain with blisters for the past 2 days. Patient has no signs of trauma. Patient was not in any extreme weather. Patient had no tight shoes. Onset: Today Duration: Day(s): Location: Reports: Lower Extremity, Right Quality: Reports: Burning Severity: Moderate Improves with: Reports: None Worsens with: Reports: None Associated Symptoms: Reports: No Other Symptoms 1st,2nd,3rd toe right Pain Score (Numeric/FACES): 7 left foot 1st,2nd & 3rd digit Pain Score (Numeric/FACES): 7 - Related Data Allergies Allergy/AdvReac Type Severity Reaction Status Date / Time ketorolac [From Toradol] Allergy Itching Verified 10/20/19 22:01 tramadol Allergy Rash Verified 10/20/19 22:01 Home Meds: Home Meds Acetaminophen with Codeine [Tylenol with Codeine #3 Tablet] 1 each PO Q4HR PRN # 10 tablet 08/29/19 [Rx] Cyclobenzaprine HCl 10 mg PO BEDTIME 08/29/19 [History] FLUoxetine HCl [Fluoxetine HCl] 40 mg PO DAILY 08/29/19 [History] Fluconazole [Diflucan] 150 mg PO ONETIME #1 tab 08/29/19 [Rx] Gabapentin [Neurontin] 2 cap PO TID 08/29/19 [History] Hydrocodone/Acetaminophen [Hydrocodon-Acetaminophen 5-325] 1 tab PO DAILY PRN [History] LORazepam [Ativan] 0.5 mg PO TID 08/29/19 [History] Levofloxacin [Levaquin] 500 mg PO DAILY 08/29/19 [History] buPROPion HCL [Bupropion HCl Sr] 300 mg PO DAILY 08/29/19 [History] busPIRone [Buspar] 15 mg PO BID 08/29/19 [History] lamoTRIgine [Lamotrigine] 25 mg PO DAILY 08/29/19 [History] lisinopriL [Zestril] 2.5 mg PO DAILY 08/29/19 [History] Past Medical History - Past Health History Medical/Surgical History: Denies Medical/Surgical History HEENT History: Reports: Other (See Below) Other HEENT History: wears glasses/contacts Cardiovascular History: Reports: None Respiratory History: Reports: None Gastrointestinal History: Reports: Other (See Below) Other Gastrointestinal History: occasional heartburn Genitourinary History: Reports: Pyelonephritis, UTI, Recurrent, Other (See Below ) 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: Musculoskeletal History: Reports: Fracture Other Musculoskeletal History: hx fx wrist Neurological History: Reports: Other (See Below) Other Neuro History: Nerve pain in legs, 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 Psychiatric History: Reports: Anxiety, Depression Endocrine/Metabolic History: Reports: None Insulin Pump Model and Import Specialist: None Hematologic History: Reports: None Immunologic History: Reports: None Oncologic (Cancer) History: Reports: None Dermatologic History: Reports: None - Infectious Disease History Infectious Disease History: Reports: None - Past Surgical History Head Surgeries/Procedures: Reports: None HEENT Surgical History: Reports: Oral Surgery Female Surgical History: Reports: Hysterectomy Musculoskeletal Surgical History: Reports: Arthroscopic Knee Social & Family History - Family History Family Medical History: Noncontributory - Tobacco Use Smoking Status *Q: Current Every Day Smoker Years of Tobacco use: 10 Packs/Tins Daily: 0.5 - Caffeine Use Caffeine Use: Reports: Soda - Recreational Drug Use Recreational Drug Use: No Review of Systems - Review of Systems Review Of Systems: See Below Constitutional: Reports: No Symptoms Eyes: Reports: No Symptoms Ears: Reports: No Symptoms Nose: Reports: No Symptoms Mouth/Throat: Reports: No Symptoms Respiratory: Reports: No Symptoms Cardiovascular: Reports: No Symptoms GI/Abdominal: Reports: No Symptoms Genitourinary: Reports: No Symptoms Musculoskeletal: Reports: No Symptoms Skin: Reports: Other (Blisters on great toe foot with second and third toe involved no redness no bruising) Neurological: Reports: No Symptoms Psychiatric: Reports: No Symptoms ED EXAM, GENERAL - Physical Exam Exam: See Below Exam Limited By: No Limitations General Appearance: Alert, WD/WN, No Apparent Distress Eye Exam: Bilateral Eye: Normal Fundi, Normal Inspection Ears: Normal External Exam, Normal Canal, Hearing Grossly Normal, Normal TMs Ear Exam: Bilateral Ear: Auricle Normal, Canal Normal, TM normal Nose: Normal Inspection, Normal Mucosa, No Blood Throat/Mouth: Normal Inspection, Normal Lips, Normal Teeth, Normal Gums, Normal Oropharynx, Normal Voice, No Airway Compromise Head: Atraumatic, Normocephalic Neck: Normal Inspection, Supple, Non-Tender, Full Range of Motion Respiratory/Chest: No Respiratory Distress, Lungs Clear, Normal Breath Sounds, No Accessory Muscle Use, Chest Non-Tender Cardiovascular: Normal Peripheral Pulses, Regular Rate, Rhythm, No Edema, No Gallop, No JVD, No Murmur, No Rub Extremities: Other (Has redness to the left great toe second and third toe with small possible blisters forming. No signs of infection) Neurological: Alert, Oriented, CN II-XII Intact, Normal Reflexes, No Motor/ Sensory Deficits Psychiatric: Normal Affect Skin Exam: Warm, Dry Course - Vital Signs Text/Narrative:: 38-year-old female presents emergency room chief complaints of left toe pain and blisters on her toes. Patient had no trauma. Patient does not however know how her toes got injured. X-rays are not done. Patient has a normal CBC lites and sed rate. Unknown blisters on toes Last Recorded V/S: Last Vital Signs Temp 97.5 F 10/20/19 22:00 Pulse 86 10/20/19 22:00 Resp 18 10/20/19 22:00 BP 140/79 10/20/19 22:00 Pulse Ox 98 10/20/19 22:00 - Orders/Labs/Meds Labs: Laboratory Tests 10/20/19 10/20/19 10/20/19 Range/Units 22:19 22:19 22:19 WBC 10.57 (4.0-11.0) K/uL RBC 4.28 L (4.30-5.90) M/uL Hgb 13.8 (12.0-16.0) g/dL Hct 42.3 (36.0-46.0) % MCV 98.8 H (80.0-98.0) fL MCH 32.2 H (27.0-32.0) pg MCHC 32.6 (31.0-37.0) g/dL RDW Std Deviation 47.2 (28.0-62.0) fl RDW Coeff of Elva 13 (11.0-15.0) % Plt Count 281 (150-400) K/uL MPV 10.70 (7.40-12.00) fL Neut % (Auto) 62.2 (48.0-80.0) % Lymph % (Auto) 31.8 (16.0-40.0) % [place] % (Auto) 4.2 (0.0-15.0) % Eos % (Auto) 1.4 (0.0-7.0) % Baso % (Auto) 0.4 (0.0-1.5) % Neut # (Auto) 6.6 H (1.4-5.7) K/uL Lymph # (Auto) 3.4 H (0.6-2.4) K/uL [place] # (Auto) 0.4 (0.0-0.8) K/uL Eos # (Auto) 0.2 (0.0-0.7) K/uL Baso # (Auto) 0.0 (0.0-0.1) K/uL Nucleated RBC % 0.0 /100WBC Nucleated RBCs # 0 K/uL ESR 1 (0-19) mm/hr Sodium 138 (136-145) mmol/L Potassium 3.8 (3.5-5.1) mmol/L Chloride 102 (98-107) mmol/L Carbon Dioxide 28.7 (21.0-32.0) mmol/L BUN 10 (7.0-18.0) mg/dL Creatinine 1.2 H (0.6-1.0) mg/dL Est Cr Clr Drug Dosing 60.09 mL/min Estimated GFR (MDRD) 50.6 ml/min Glucose 98 (74-106) mg/dL Calcium 8.2 L (8.5-10.1) mg/dL Total Bilirubin 0.2 (0.2-1.0) mg/dL AST 18 (15-37) IU/L ALT 28 (14-63) IU/L Alkaline Phosphatase 64 (46-116) U/L Total Protein 7.2 (6.4-8.2) g/dL Albumin 3.6 (3.4-5.0) g/dL Globulin 3.6 (2.6-4.0) g/dL Albumin/Globulin Ratio 1.0 (0.9-1.6) Departure - Departure Time of Disposition: 22:55 Disposition: Home, Self-Care 01 Condition: Good Clinical Impression: Toe pain, left - Discharge Information Instructions: Pain Without a Known Cause Referrals: Virginia Vargas PA [Primary Care Provider] - Forms: ED Department Discharge Additional Instructions: Wear open toed shoes for 2 days. Follow-up with family medicine clinic for follow-up. Sepsis Event Note - Evaluation Sepsis Screening Result: No Definite Risk - Focused Exam Vital Signs: Vital Signs Temp Pulse Resp BP Pulse Ox 10/20/19 22:00 97.5 F 86 18 140/79 98 Date Exam was Performed: 10/20/19 Time Exam was Performed: 22:54
[2019-10-20 22:51] LABS: CARBON DIOXIDE,CO2 28.7 mmol/L (21.0-32.0); POTASSIUM,K 3.8 mmol/L (3.5-5.1)
[2019-10-20 23:11] VITALS: BP 118/81; PULSE 74
== END 2019-10-20 23:11 | disposition home or self-care (01) ==
LOC: MW.ED 21:44
DX: S90.422A Blister (nonthermal), left great toe, initial encounter (principal); S90.425A Blister (nonthermal), left lesser toe(s), initial encounter; F32.9 Major depressive disorder, single episode, unspecified; F41.9 Anxiety disorder, unspecified; F17.210 Nicotine dependence, cigarettes, uncomplicated; Z88.6 Allergy status to analgesic agent; Z88.5 Allergy status to narcotic agent; Z79.899 Other long term (current) drug therapy; X58.XXXA Exposure to other specified factors, initial encounter
CPT/HCPCS: 36415; 80053; 85025; 85652; 99282; 99283

== ENCOUNTER 2020-04-14 19:54 | Emergency (ER) | payer MEDICAID, OTHER ==
--- NOTE | 2020-04-14 20:02 | EDM.PDOC ---
ED HPI GENERAL MEDICAL PROBLEM - General Stated Complaint: LOWER BACK PAIN Time Seen by Provider: 04/14/20 20:02 Source of Information: Reports: Patient History Limitations: Reports: No Limitations - History of Present Illness INITIAL COMMENTS - FREE TEXT/NARRATIVE: Patient is a 39-year-old female presents today for back pain. Patient that she has had the same back pain for the past few months. Patient is scheduled for MRI differentials of the back pain. Patient has tried [id number] medication also given narcotics by PMD with still no relief. Patient denies any urinary incontinence leg weakness or saddle anesthesia. Patient denies new injuries to the back or other neurological symptoms. Lower back Pain Score (Numeric/FACES): 6 - Related Data Allergies Allergy/AdvReac Type Severity Reaction Status Date / Time ketorolac [From Toradol] Allergy Itching Verified 04/14/20 20:02 tramadol Allergy Rash Verified 04/14/20 20:02 Home Meds: Home Meds Cyclobenzaprine HCl 10 mg PO BEDTIME PRN 08/29/19 [History] Hydrocodone/Acetaminophen [Hydrocodon-Acetaminophen 5-325] 1 tab PO BID PRN 08/29/19 [History] LORazepam [Ativan] 0.5 mg PO TID 08/29/19 [History] buPROPion HCL [Bupropion HCl Sr] 450 mg PO DAILY 08/29/19 [History] lisinopriL [Zestril] 2.5 mg PO DAILY 08/29/19 [History] Fish Oil/Stuart-3 Fatty Acids [Fish Oil 1,000 MG] 2 cap PO DAILY 04/14/20 [History] Past Medical History - Past Health History Medical/Surgical History: Denies Medical/Surgical History HEENT History: Reports: Other (See Below) Other HEENT History: wears glasses/contacts Cardiovascular History: Reports: None Respiratory History: Reports: None Gastrointestinal History: Reports: Other (See Below) Other Gastrointestinal History: occasional heartburn Genitourinary History: Reports: Pyelonephritis, UTI, Recurrent, Other (See Below) 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: Musculoskeletal History: Reports: Fracture Other Musculoskeletal History: hx fx wrist Neurological History: Reports: Other (See Below) Other Neuro History: Nerve pain in legs, 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 Psychiatric History: Reports: Anxiety, Depression Endocrine/Metabolic History: Reports: None Insulin Pump Model and Co Founder: None Hematologic History: Reports: None Immunologic History: Reports: None Oncologic (Cancer) History: Reports: None Dermatologic History: Reports: None - Infectious Disease History Infectious Disease History: Reports: None - Past Surgical History Head Surgeries/Procedures: Reports: None HEENT Surgical History: Reports: Oral Surgery Female Surgical History: Reports: Hysterectomy Musculoskeletal Surgical History: Reports: Arthroscopic Knee Social & Family History - Family History Family Medical History: Noncontributory - Caffeine Use Caffeine Use: Reports: Soda ED ROS GENERAL - Review of Systems Review Of Systems: Comprehensive ROS is negative, except as noted in HPI. Musculoskeletal: Reports: Back Pain ED EXAM, GENERAL - Physical Exam Exam: See Below Exam Limited By: No Limitations General Appearance: Alert, No Apparent Distress Eye Exam: Bilateral Eye: EOMI, PERRL Respiratory/Chest: No Respiratory Distress, Normal Breath Sounds Cardiovascular: Normal Peripheral Pulses, Regular Rate, Rhythm GI/Abdominal: Normal Bowel Sounds, Soft, Non-Tender Extremities: Normal Inspection Neurological: Alert, Oriented, CN II-XII Intact Course - Vital Signs Last Recorded V/S: Last Vital Signs Temp 97.5 F 04/14/20 22:00 Pulse 95 04/14/20 22:00 Resp 18 04/14/20 22:00 BP 129/99 H 04/14/20 22:00 Pulse Ox 95 04/14/20 22:00 - Orders/Labs/Meds Meds: Medications Discontinued Medications Generic Name Dose Route Start Last Admin Trade Name Howardq PRN Reason Stop Dose Admin Lidocaine 700 mg 04/14/20 20:24 04/14/20 20:30 Lidoderm 5% TOP 04/14/20 20:25 700 mg ONETIME ONE Administration Oxycodone/Acetaminophen 1 tab 04/14/20 20:25 04/14/20 20:30 Percocet 325-5 Mg PO 04/14/20 20:26 1 tab ONETIME ONE Administration Departure - Departure Time of Disposition: 21:49 Disposition: Home, Self-Care 01 Condition: Good Clinical Impression: Back pain without sciatica, Back pain - Discharge Information *PRESCRIPTION DRUG MONITORING PROGRAM REVIEWED*: Not Applicable *COPY OF PRESCRIPTION DRUG MONITORING REPORT IN PATIENT BORA: Not Applicable Instructions: Chronic Back Pain, [id number] Referrals: Virginia Vargas PA [Primary Care Provider] - Forms: ED Department Discharge Additional Instructions: The following information is given to patients seen in the emergency department who are being discharged to home. This information is to outline your options for follow-up care. We provide all patients seen in our emergency department with a follow-up referral. The need for follow-up, as well as the timing and circumstances, are variable depending upon the specifics of your emergency department visit. If you don't have a primary care physician on staff, we will provide you with a referral. We always advise you to contact your personal physician following an emergency department visit to inform them of the circumstance of the visit and for follow-up with them and/or the need for any referrals to a consulting specialist. The emergency department will also refer you to a specialist when appropriate. This referral assures that you have the opportunity for follow-up care with a specialist. All of these measure are taken in an effort to provide you with optimal care, which includes your follow-up. Under all circumstances we always encourage you to contact your private physician who remains a resource for coordinating your care. When calling for follow-up care, please make the office aware that this follow-up is from your recent emergency room visit. If for any reason you are refused follow-up, please contact the [facility] Emergency Department at and asked to speak to the emergency department charge nurse. Please continue to follow-up with your primary care physician take your medications with your primary care physician gave you back pain and follow-up your MRI this week. Please follow up with your primary care physician. If you do not have a primary care physician, see below: [facility] [address] [place] [id number] [facility] [address] [place] [phone] Sepsis Event Note (ED) - Focused Exam Vital Signs: Vital Signs Temp Pulse Resp BP Pulse Ox 04/14/20 22:00 97.5 F 95 18 129/99 H 95 04/14/20 20:07 98.1 F 118 H 18 134/100 H 96 - Assessment/Plan Plan: Patient is a 39-year-old female who presents today for back pain. Patient had the same back pain for the past few months and has no saddle esthesia urinary incontinence or leg weakness. Patient was given Percocet and lidocaine patch here with minimal relief. Patient still has slight pain but is scheduled for MRI this week. We recommend patient follow-up with PMD for further care. Patient has no concerning signs on exam.
[2020-04-14] MEDS ORDERED: Lidocaine 5% 700 MG Patch TOP ONE (20:24)
[2020-04-14] MEDS ORDERED: Acetaminophen/oxyCODONE 325-5 MG Tab PO ONE (20:25)
[2020-04-14 22:14] VITALS: BP 129/99; PULSE 95
== END 2020-04-14 22:05 | disposition home or self-care (01) ==
LOC: MW.ED 19:54
DX: M54.9 Dorsalgia, unspecified (principal); F32.9 Major depressive disorder, single episode, unspecified; F41.9 Anxiety disorder, unspecified; Z88.5 Allergy status to narcotic agent
CPT/HCPCS: 99283; A9270

== ENCOUNTER 2020-04-15 17:40 | Emergency (ER) | payer MEDICAID ==
[2020-04-15] MEDS ORDERED: Morphine 4 MG/ML Syringe IVPUSH ONE (19:45)
--- NOTE | 2020-04-15 19:50 | EDM.PDOC ---
ED HPI GENERAL MEDICAL PROBLEM - General Chief Complaint: Back Pain or Injury Stated Complaint: BACK PAIN Time Seen by Provider: 04/15/20 19:41 Source of Information: Reports: Patient History Limitations: Reports: No Limitations - History of Present Illness INITIAL COMMENTS - FREE TEXT/NARRATIVE: Patient is a 39-year-old female who presents today for back pain. Patient was seen in the ED yesterday by me. Patient's had this recurrent back pain for some months now. Patient is scheduled to have MRI next 2 days. Patient states the pain is not being managed with her p.o. narcotics and is here today for pain control. Patient states that she is already had x-rays and CT imaging done does not want any imaging done today. Patient denies any saddle anesthesia or urinary symptoms or leg weakness or numbness. Back pain Pain Score (Numeric/FACES): 7 - Related Data Allergies Allergy/AdvReac Type Severity Reaction Status Date / Time ketorolac [From Toradol] Allergy Itching Verified 04/14/20 20:02 tramadol Allergy Rash Verified 04/14/20 20:02 Home Meds: Home Meds Cyclobenzaprine HCl 10 mg PO BEDTIME PRN 08/29/19 [History] Hydrocodone/Acetaminophen [Hydrocodon-Acetaminophen 5-325] 1 tab PO BID PRN 08/29/19 [History] LORazepam [Ativan] 0.5 mg PO TID 08/29/19 [History] buPROPion HCL [Bupropion HCl Sr] 450 mg PO DAILY 08/29/19 [History] lisinopriL [Zestril] 2.5 mg PO DAILY 08/29/19 [History] Fish Oil/[place]-3 Fatty Acids [Fish Oil 1,000 MG] 2 cap PO DAILY 04/14/20 [History] Past Medical History - Past Health History Medical/Surgical History: Denies Medical/Surgical History HEENT History: Reports: Other (See Below) Other HEENT History: wears glasses/contacts Cardiovascular History: Reports: None Respiratory History: Reports: None Gastrointestinal History: Reports: Other (See Below) Other Gastrointestinal History: occasional heartburn Genitourinary History: Reports: Pyelonephritis, UTI, Recurrent, Other (See Below) 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: Musculoskeletal History: Reports: Fracture Other Musculoskeletal History: hx fx wrist Neurological History: Reports: Other (See Below) Other Neuro History: Nerve pain in legs, 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 Psychiatric History: Reports: Anxiety, Depression Endocrine/Metabolic History: Reports: None Insulin Pump Model and 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 Hematologic History: Reports: None Immunologic History: Reports: None Oncologic (Cancer) History: Reports: None Dermatologic History: Reports: None - Infectious Disease History Infectious Disease History: Reports: None - Past Surgical History Head Surgeries/Procedures: Reports: None HEENT Surgical History: Reports: Oral Surgery Female Surgical History: Reports: Hysterectomy Musculoskeletal Surgical History: Reports: Arthroscopic Knee Social & Family History - Family History Family Medical History: No Pertinent Family History - Caffeine Use Caffeine Use: Reports: Soda ED ROS GENERAL - Review of Systems Review Of Systems: Comprehensive ROS is negative, except as noted in HPI. Musculoskeletal: Reports: Back Pain ED EXAM, GENERAL - Physical Exam Exam: See Below Exam Limited By: No Limitations Neck: Normal Inspection Respiratory/Chest: No Respiratory Distress Cardiovascular: Regular Rate, Rhythm GI/Abdominal: Normal Bowel Sounds, Soft, Non-Tender Rectal (Female) Exam: Normal Exam Back Exam: Paraspinal Tenderness, Vertebral Tenderness. No: CVA Tenderness (L), CVA Tenderness (R) Course - Vital Signs Last Recorded V/S: Last Vital Signs Temp 97.0 F 04/15/20 19:35 Pulse 85 04/15/20 19:35 Resp 18 04/15/20 19:35 BP 132/78 04/15/20 19:35 Pulse Ox 97 04/15/20 19:35 - Orders/Labs/Meds Labs: Laboratory Tests 04/15/20 04/15/20 04/15/20 Range/Units 19:50 19:50 20:00 WBC 9.08 (4.0-11.0) K/uL RBC 4.48 (4.30-5.90) M/uL Hgb 14.6 (12.0-16.0) g/dL Hct 43.8 (36.0-46.0) % MCV 97.8 (80.0-98.0) fL MCH 32.6 H (27.0-32.0) pg MCHC 33.3 (31.0-37.0) g/dL RDW Std Deviation 46.1 (28.0-62.0) fl RDW Coeff of Elva 13 (11.0-15.0) % Plt Count 303 (150-400) K/uL MPV 10.60 (7.40-12.00) fL Neut % (Auto) 60.0 (48.0-80.0) % Lymph % (Auto) 33.5 (16.0-40.0) % [place] % (Auto) 5.0 (0.0-15.0) % Eos % (Auto) 1.2 (0.0-7.0) % Baso % (Auto) 0.3 (0.0-1.5) % Neut # (Auto) 5.5 (1.4-5.7) K/uL Lymph # (Auto) 3.0 H (0.6-2.4) K/uL [place] # (Auto) 0.5 (0.0-0.8) K/uL Eos # (Auto) 0.1 (0.0-0.7) K/uL Baso # (Auto) 0.0 (0.0-0.1) K/uL Nucleated RBC % 0.0 /100WBC Nucleated RBCs # 0 K/uL Sodium 141 (136-145) mmol/L Potassium 4.0 (3.5-5.1) mmol/L Chloride 105 (98-107) mmol/L Carbon Dioxide 26.6 (21.0-32.0) mmol/L BUN 5 L (7.0-18.0) mg/dL Creatinine 1.1 H (0.6-1.0) mg/dL Est Cr Clr Drug Dosing 64.92 mL/min Estimated GFR (MDRD) 55.6 ml/min Glucose 80 (74-106) mg/dL Calcium 8.6 (8.5-10.1) mg/dL Urine Color Urine Appearance Urine pH (5.0-8.0) Ur Specific [place] (1.001-1.035) Urine Protein (NEGATIVE) mg/dL Urine Glucose (UA) (NEGATIVE) mg/dL Urine Ketones (NEGATIVE) mg/dL Urine Occult Blood (NEGATIVE) Urine Nitrite (NEGATIVE) Urine Bilirubin (NEGATIVE) Urine Urobilinogen (<2.0) EU/dL Ur Leukocyte Esterase (NEGATIVE) Urine RBC (0-2/HPF) Urine WBC (0-5/HPF) Ur Epithelial Cells (NONE-FEW) Amorphous Sediment (NEGATIVE) Urine Bacteria (NEGATIVE) Urine Mucus (NONE-MOD) Urine HCG, Qual NEGATIVE (NEGATIVE) 04/15/20 Range/Units 20:00 WBC (4.0-11.0) K/uL RBC (4.30-5.90) M/uL Hgb (12.0-16.0) g/dL Hct (36.0-46.0) % MCV (80.0-98.0) fL MCH (27.0-32.0) pg MCHC (31.0-37.0) g/dL RDW Std Deviation (28.0-62.0) fl RDW Coeff of Elva (11.0-15.0) % Plt Count (150-400) K/uL MPV (7.40-12.00) fL Neut % (Auto) (48.0-80.0) % Lymph % (Auto) (16.0-40.0) % [place] % (Auto) (0.0-15.0) % Eos % (Auto) (0.0-7.0) % Baso % (Auto) (0.0-1.5) % Neut # (Auto) (1.4-5.7) K/uL Lymph # (Auto) (0.6-2.4) K/uL [place] # (Auto) (0.0-0.8) K/uL Eos # (Auto) (0.0-0.7) K/uL Baso # (Auto) (0.0-0.1) K/uL Nucleated RBC % /100WBC Nucleated RBCs # K/uL Sodium (136-145) mmol/L Potassium (3.5-5.1) mmol/L Chloride (98-107) mmol/L Carbon Dioxide (21.0-32.0) mmol/L BUN (7.0-18.0) mg/dL Creatinine (0.6-1.0) mg/dL Est Cr Clr Drug Dosing mL/min Estimated GFR (MDRD) ml/min Glucose (74-106) mg/dL Calcium (8.5-10.1) mg/dL Urine Color YELLOW Urine Appearance SLT CLOUDY Urine pH 6.5 (5.0-8.0) Ur Specific [place] <= 1.005 (1.001-1.035) Urine Protein NEGATIVE (NEGATIVE) mg/dL Urine Glucose (UA) NEGATIVE (NEGATIVE) mg/dL Urine Ketones NEGATIVE (NEGATIVE) mg/dL Urine Occult Blood TRACE-INTACT H (NEGATIVE) Urine Nitrite NEGATIVE (NEGATIVE) Urine Bilirubin NEGATIVE (NEGATIVE) Urine Urobilinogen 0.2 (<2.0) EU/dL Ur Leukocyte Esterase NEGATIVE (NEGATIVE) Urine RBC 0-2 (0-2/HPF) Urine WBC 4-6 (0-5/HPF) Ur Epithelial Cells FEW (NONE-FEW) Amorphous Sediment FEW (NEGATIVE) Urine Bacteria 1+ H (NEGATIVE) Urine Mucus FEW (NONE-MOD) Urine HCG, Qual (NEGATIVE) Meds: Medications Discontinued Medications Generic Name Dose Route Start Last Admin Trade Name Howardq PRN Reason Stop Dose Admin Morphine Sulfate 4 mg 04/15/20 19:45 04/15/20 19:53 Morphine IVPUSH 04/15/20 19:46 4 mg ONETIME ONE Administration Departure - Departure Time of Disposition: 21:04 Disposition: Home, Self-Care 01 Condition: Good Clinical Impression: Lumbago Qualifiers: Chronicity: unspecified Back pain laterality: unspecified Sciatica presence: without sciatica Qualified Code(s): M54.5 - Low back pain - Discharge Information *PRESCRIPTION DRUG MONITORING PROGRAM REVIEWED*: Yes *COPY OF PRESCRIPTION DRUG MONITORING REPORT IN PATIENT BORA: Yes Instructions: What You Need to Know About Chronic Back Pain, Back Exercises, [id number] Referrals: Virginia Vargas PA [Primary Care Provider] - Forms: ED Department Discharge Additional Instructions: The following information is given to patients seen in the emergency department who are being discharged to home. This information is to outline your options for follow-up care. We provide all patients seen in our emergency department with a follow-up referral. The need for follow-up, as well as the timing and circumstances, are variable depending upon the specifics of your emergency department visit. If you don't have a primary care physician on staff, we will provide you with a referral. We always advise you to contact your personal physician following an emergency department visit to inform them of the circumstance of the visit and for follow-up with them and/or the need for any referrals to a consulting specialist. The emergency department will also refer you to a specialist when appropriate. This referral assures that you have the opportunity for follow-up care with a specialist. All of these measure are taken in an effort to provide you with optimal care, which includes your follow-up. Under all circumstances we always encourage you to contact your private physician who remains a resource for coordinating your care. When calling for follow-up care, please make the office aware that this follow-up is from your recent emergency room visit. If for any reason you are refused follow-up, please contact the [facility] Emergency Department at and asked to speak to the emergency department charge nurse. Please follow up with your primary care physician. If you do not have a primary care physician, see below: [facility] [address] [place] [id number] My [facility] [address] [place] [address] Please follow-up with your primary care physician and have MRI this week. Please contact your doctor about adjustments your pain medication. Sepsis Event Note (ED) - Evaluation Sepsis Screening Result: No Definite Risk - Focused Exam Vital Signs: Vital Signs Temp Pulse Resp BP Pulse Ox 04/15/20 19:35 97.0 F 85 18 132/78 97 - Assessment/Plan Plan: Is a 39-year-old female presents today for back pain has been present for the past few months. Patient is scheduled for outpatient imaging. Will provide pain control and reassess patient. Patient labs reviewed patient pain now controlled with IV morphine. Patient stable for discharge home. Patient again has MRI scheduled for we will continue to follow with primary care physician.
[2020-04-15 20:34] LABS: CARBON DIOXIDE,CO2 26.6 mmol/L (21.0-32.0)
[2020-04-15 22:53] VITALS: BP 118/84; PULSE 81
== END 2020-04-15 21:35 | disposition home or self-care (01) ==
LOC: MW.ED 17:40
DX: M54.5 Low back pain (principal); F41.9 Anxiety disorder, unspecified; F32.9 Major depressive disorder, single episode, unspecified; Z88.6 Allergy status to analgesic agent; Z88.5 Allergy status to narcotic agent; Z79.899 Other long term (current) drug therapy
CPT/HCPCS: 36415; 80048; 81001; 81025; 85025; 96374; 99283; J2270

== ENCOUNTER 2020-06-06 14:32 | Emergency (ER) | payer MEDICAID ==
[2020-06-06] MEDS ORDERED: oxyCODONE 5 MG/5 ML Cup PO ONE (14:55)
--- NOTE | 2020-06-06 14:59 | EDM.PDOC ---
ED HPI GENERAL MEDICAL PROBLEM - General Chief Complaint: Flank Pain Stated Complaint: PAIN IN LOWER LFT BACK Time Seen by Provider: 06/06/20 14:36 - History of Present Illness INITIAL COMMENTS - FREE TEXT/NARRATIVE: 39-year-old female with a history of IgA nephropathy and chronic renal insufficiency as well as a history of chronic back pain for which she is currently taking Tylenol threes who is presenting with 6 out of 10 left flank pain. Symptoms have been constant for the last 3 to 4 days that are associated with dysuria they also worsen with direct pressure to the left flank. Patient reports chronic urine discoloration due to the IgA nephropathy. No chest pain or shortness of breath no vaginal bleeding or discharge no right-sided symptoms no midline back pain no radiation into the legs but some radiation around to the left lower quadrant. No nausea vomiting or diarrhea. Pain currently 6 out of 10. Patient has been alternating Tylenol and ibuprofen for the last couple days to control the pain even though she knows she is not supposed to do that. L flank Pain Score (Numeric/FACES): 8 - Related Data Allergies Allergy/AdvReac Type Severity Reaction Status Date / Time ketorolac [From Toradol] Allergy Itching Verified 06/06/20 14:44 tramadol Allergy Rash Verified 06/06/20 14:44 Home Meds: Home Meds Cyclobenzaprine HCl 10 mg PO BEDTIME PRN 08/29/19 [History] LORazepam [Ativan] 0.5 mg PO TID PRN 08/29/19 [History] buPROPion HCL [Bupropion HCl Sr] 450 mg PO DAILY 08/29/19 [History] lisinopriL [Zestril] 2.5 mg PO DAILY 08/29/19 [History] Fish Oil/[place]-3 Fatty Acids [Fish Oil 1,000 MG] 2 cap PO DAILY 04/14/20 [History] Acetaminophen/Codeine [Tylenol with Codeine No.3 300MG/30MG] 1 tab PO TID PRN 06/06/20 [History] Past Medical History - Past Health History Medical/Surgical History: Denies Medical/Surgical History HEENT History: Reports: Other (See Below) Other HEENT History: wears glasses/contacts Cardiovascular History: Reports: None Respiratory History: Reports: None Gastrointestinal History: Reports: Other (See Below) Other Gastrointestinal History: occasional heartburn Genitourinary History: Reports: Pyelonephritis, UTI, Recurrent, Other (See Below) Other Genitourinary History: 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: Musculoskeletal History: Reports: Fracture Other Musculoskeletal History: hx fx wrist Neurological History: Reports: Other (See Below) Other Neuro History: Nerve pain in legs, 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 Psychiatric History: Reports: Anxiety, Depression Endocrine/Metabolic History: Reports: None Insulin Pump Model and Mathematician: None Hematologic History: Reports: None Immunologic History: Reports: None Oncologic (Cancer) History: Reports: None Dermatologic History: Reports: None - Infectious Disease History Infectious Disease History: Reports: None - Past Surgical History Head Surgeries/Procedures: Reports: None HEENT Surgical History: Reports: Oral Surgery Female Surgical History: Reports: Hysterectomy Musculoskeletal Surgical History: Reports: Arthroscopic Knee Social & Family History - Family History Family Medical History: No Pertinent Family History - Caffeine Use Caffeine Use: Reports: Soda ED ROS GENERAL - Review of Systems Review Of Systems: See Below Free Text/Narrative/Comment: General: No fever. Skin: No rash. Eyes: No vision problems. ENT: No sore throat. Neck: No neck stiffness. Respiratory: No shortness of breath. Cardiac: No chest pain. Gastrointestinal: No nausea, vomiting or abdominal pain. Urinary: Per HPI Musculoskeletal: Per HPI Neurologic: No headache. ED EXAM, GENERAL - Physical Exam Exam: See Below Free Text/Narrative:: General Appearance: No acute distress, appears comfortable Skin: No rash HEENT: Normocephalic/atraumatic, sclera anicteric, mucous membranes moist Neck: Normal range of motion Chest and Lungs: Bilateral breath sounds, clear to auscultation Cardiovascular: Regular rate and rhythm, no murmur Abdomen: Soft, non-tender Back: No midline tenderness, left CVA tenderness Musculoskeletal: No edema or tenderness Neurologic: Awake, alert, no obvious deficits, moving all extremities Psychiatric: Appropriate, cooperative Course - Vital Signs Last Recorded V/S: Last Vital Signs Temp 96.9 F 06/06/20 14:48 Pulse 109 H 06/06/20 14:48 Resp 18 06/06/20 14:48 BP 117/82 06/06/20 14:48 Pulse Ox 98 06/06/20 14:48 - Orders/Labs/Meds Labs: Laboratory Tests 06/06/20 06/06/20 06/06/20 Range/Units 14:56 14:59 15:10 WBC 10.17 (4.0-11.0) K/uL RBC 4.30 (4.30-5.90) M/uL Hgb 14.0 (12.0-16.0) g/dL Hct 42.2 (36.0-46.0) % MCV 98.1 H (80.0-98.0) fL MCH 32.6 H (27.0-32.0) pg MCHC 33.2 (31.0-37.0) g/dL RDW Std Deviation 46.6 (28.0-62.0) fl RDW Coeff of Elva 13 (11.0-15.0) % Plt Count 254 (150-400) K/uL MPV 10.70 (7.40-12.00) fL Neut % (Auto) 67.7 (48.0-80.0) % Lymph % (Auto) 27.2 (16.0-40.0) % [place] % (Auto) 3.8 (0.0-15.0) % Eos % (Auto) 1.0 (0.0-7.0) % Baso % (Auto) 0.3 (0.0-1.5) % Neut # (Auto) 6.9 H (1.4-5.7) K/uL Lymph # (Auto) 2.8 H (0.6-2.4) K/uL [place] # (Auto) 0.4 (0.0-0.8) K/uL Eos # (Auto) 0.1 (0.0-0.7) K/uL Baso # (Auto) 0.0 (0.0-0.1) K/uL Nucleated RBC % 0.0 /100WBC Nucleated RBCs # 0 K/uL Sodium (136-145) mmol/L Potassium (3.5-5.1) mmol/L Chloride (98-107) mmol/L Carbon Dioxide (21.0-32.0) mmol/L BUN (7.0-18.0) mg/dL Creatinine (0.6-1.0) mg/dL Est Cr Clr Drug Dosing mL/min Estimated GFR (MDRD) ml/min Glucose (74-106) mg/dL Calcium (8.5-10.1) mg/dL Urine Color YELLOW Urine Appearance CLEAR Urine pH 7.0 (5.0-8.0) Ur Specific [place] 1.020 (1.001-1.035) Urine Protein NEGATIVE (NEGATIVE) mg/dL Urine Glucose (UA) NEGATIVE (NEGATIVE) mg/dL Urine Ketones NEGATIVE (NEGATIVE) mg/dL Urine Occult Blood TRACE-INTACT H (NEGATIVE) Urine Nitrite NEGATIVE (NEGATIVE) Urine Bilirubin NEGATIVE (NEGATIVE) Urine Urobilinogen 0.2 (<2.0) EU/dL Ur Leukocyte Esterase NEGATIVE (NEGATIVE) Urine RBC 2-3 (0-2/HPF) Urine WBC 3-4 (0-5/HPF) Ur Epithelial Cells FEW (NONE-FEW) Amorphous Sediment FEW (NEGATIVE) Urine Bacteria 1+ H (NEGATIVE) Urine Mucus FEW (NONE-MOD) Urine HCG, Qual NEGATIVE (NEGATIVE) 06/06/20 Range/Units 15:10 WBC (4.0-11.0) K/uL RBC (4.30-5.90) M/uL Hgb (12.0-16.0) g/dL Hct (36.0-46.0) % MCV (80.0-98.0) fL MCH (27.0-32.0) pg MCHC (31.0-37.0) g/dL RDW Std Deviation (28.0-62.0) fl RDW Coeff of Elva (11.0-15.0) % Plt Count (150-400) K/uL MPV (7.40-12.00) fL Neut % (Auto) (48.0-80.0) % Lymph % (Auto) (16.0-40.0) % [place] % (Auto) (0.0-15.0) % Eos % (Auto) (0.0-7.0) % Baso % (Auto) (0.0-1.5) % Neut # (Auto) (1.4-5.7) K/uL Lymph # (Auto) (0.6-2.4) K/uL [place] # (Auto) (0.0-0.8) K/uL Eos # (Auto) (0.0-0.7) K/uL Baso # (Auto) (0.0-0.1) K/uL Nucleated RBC % /100WBC Nucleated RBCs # K/uL Sodium 138 (136-145) mmol/L Potassium 4.0 (3.5-5.1) mmol/L Chloride 104 (98-107) mmol/L Carbon Dioxide 23.5 (21.0-32.0) mmol/L BUN 14 (7.0-18.0) mg/dL Creatinine 1.1 H (0.6-1.0) mg/dL Est Cr Clr Drug Dosing 64.92 mL/min Estimated GFR (MDRD) 55.6 ml/min Glucose 105 (74-106) mg/dL Calcium 9.0 (8.5-10.1) mg/dL Urine Color Urine Appearance Urine pH (5.0-8.0) Ur Specific [place] (1.001-1.035) Urine Protein (NEGATIVE) mg/dL Urine Glucose (UA) (NEGATIVE) mg/dL Urine Ketones (NEGATIVE) mg/dL Urine Occult Blood (NEGATIVE) Urine Nitrite (NEGATIVE) Urine Bilirubin (NEGATIVE) Urine Urobilinogen (<2.0) EU/dL Ur Leukocyte Esterase (NEGATIVE) Urine RBC (0-2/HPF) Urine WBC (0-5/HPF) Ur Epithelial Cells (NONE-FEW) Amorphous Sediment (NEGATIVE) Urine Bacteria (NEGATIVE) Urine Mucus (NONE-MOD) Urine HCG, Qual (NEGATIVE) Meds: Medications Discontinued Medications Generic Name Dose Route Start Last Admin Trade Name Freq PRN Reason Stop Dose Admin Oxycodone HCl 5 mg 06/06/20 15:03 06/06/20 15:04 Oxycodone PO 06/06/20 15:04 5 mg ONETIME ONE Administration Oxycodone HCl Confirm 06/06/20 15:02 06/06/20 15:14 Oxycodone Administered 06/06/20 15:03 Not Given Dose 5 mg .ROUTE .STK-MED ONE Departure - Departure Time of Disposition: 15:49 Disposition: Home, Self-Care 01 Condition: Good Clinical Impression: Flank pain - Discharge Information *PRESCRIPTION DRUG MONITORING PROGRAM REVIEWED*: Not Applicable *COPY OF PRESCRIPTION DRUG MONITORING REPORT IN PATIENT BORA: Not Applicable Instructions: Chronic Back Pain, [id number] Referrals: Virginia Vargas PA [Primary Care Provider] - Forms: ED Department Discharge Additional Instructions: Please be sure that you do not combine the [place] with your Tylenol threes or with your Ativan. I encourage you to continue using the patches and heating pads and trying to be up and about as much as you can. If your symptoms worsen or you develop any other new symptoms that concern you I encourage you to call your doctor or return to the ER. Please be sure to keep your follow-up appointment in [place]. The following information is given to patients seen in the emergency department who are being discharged to home. This information is to outline your options for follow-up care. We provide all patients seen in our emergency department with a follow-up referral. The need for follow-up, as well as the timing and circumstances, are variable depending upon the specifics of your emergency department visit. If you don't have a primary care physician on staff, we will provide you with a referral. We always advise you to contact your personal physician following an emergency department visit to inform them of the circumstance of the visit and for follow-up with them and/or the need for any referrals to a consulting specialist. The emergency department will also refer you to a specialist when appropriate. This referral assures that you have the opportunity for follow-up care with a specialist. All of these measure are taken in an effort to provide you with optimal care, which includes your follow-up. Under all circumstances we always encourage you to contact your private physician who remains a resource for coordinating your care. When calling for follow-up care, please make the office aware that this follow-up is from your recent emergency room visit. If for any reason you are refused follow-up, please contact the [facility] Emergency Department at and asked to speak to the emergency department charge nurse. Sepsis Event Note (ED) - Evaluation Sepsis Screening Result: No Definite Risk - Focused Exam Vital Signs: Vital Signs Temp Pulse Resp BP Pulse Ox 06/06/20 14:48 96.9 F 109 H 18 117/82 98 - Assessment/Plan Assessment:: 39-year-old female presented with signs and symptoms that could represent UTI or pyelonephritis the constant aching nature of the pain does not suggest renal colic to me. Musculoskeletal back pain is a consideration but this is atypical for her musculoskeletal back pain which is typically a band across the back. CBC BMP and urinalysis pending patient got a ride here and is being driven home. Given the significant Tylenol load that she has gotten already today and her heavy use of Tylenol will use 5 mg oxycodone. She has had good response to this in the past in terms of her pain though it did make her somewhat drowsy. 1548: Patient's labs are good symptoms improved to 4 out of 10. The patient's inability to do steroids or anti-inflammatories and that she is already using diclofenac and lidocaine patches we will do a short prescription for [place] patient understands that she cannot combine this with the Ativan or Tylenol threes. She has been responsible in the past and expresses understanding. She has follow-up scheduled for next week. Return precautions discussed and understood.
[2020-06-06] MEDS ORDERED: oxyCODONE 5 MG Tab ONE (15:02)
[2020-06-06] MEDS ORDERED: oxyCODONE 5 MG Tab PO ONE (15:03)
[2020-06-06 15:33] LABS: CARBON DIOXIDE,CO2 23.5 mmol/L (21.0-32.0)
[2020-06-06 16:15] VITALS: BP 113/83; PULSE 97
== END 2020-06-06 16:00 | disposition home or self-care (01) ==
LOC: MW.ED 14:32
DX: R10.9 Unspecified abdominal pain (principal); F32.9 Major depressive disorder, single episode, unspecified; Z88.6 Allergy status to analgesic agent; Z88.5 Allergy status to narcotic agent; Z79.899 Other long term (current) drug therapy
CPT/HCPCS: 36415; 80048; 81001; 81025; 85025; 99284; A9270

== ENCOUNTER 2020-10-12 14:24 | Emergency (ER) | payer MEDICAID, OTHER ==
[2020-10-12] MEDS ORDERED: Acetaminophen/HYDROcodone 325-5 MG Tab PO ONE (15:44)
--- NOTE | 2020-10-12 15:57 | EDM.PDOC ---
ED HPI GENERAL MEDICAL PROBLEM - General Chief Complaint: ENT Problem Stated Complaint: TOOTH PAIN Time Seen by Provider: 10/12/20 14:51 Source of Information: Reports: Patient History Limitations: Reports: No Limitations - History of Present Illness INITIAL COMMENTS - FREE TEXT/NARRATIVE: HISTORY AND PHYSICAL: History of present illness: The patient is a 39-year-old female that presents to the emergency room with complaints of left lower socket pain. The patient reports that she had her left posterior molar pulled on Tuesday. She states that her pain has been increasi ng every day since then. She states that she does smoke but has not smoked or has not used straws. She feels like the pain is going from her job up behind her ear. She rates her pain as 7 out of 10. Her dentist, Dr. Blas, gave her 12 [place] and cephalexin 500 mg 4 times daily. The patient states she is out of [place] and when she tried to call the dentist office all she got was a message. Patient denies any fever, chills, headache, change in vision, syncope or near syncope. Denies any chest pain, back pain, shortness of breath or cough. Denies any abdominal pain, nausea, vomiting, diarrhea, constipation or dysuria. Has not noted any blood in urine or stool. Review of systems: As per history of present illness and below otherwise all systems reviewed and negative. Past medical history: As per history of present illness and as reviewed below otherwise noncontributory. Surgical history: As per history of present illness and as reviewed below otherwise noncontributory. Social history: See social history for further information Family history: As per history of present illness and as reviewed below otherwise noncontributory. Physical exam: General: Well developed and well nourished. Alert and orientated x 3. Nontoxic in appearance and in no acute distress. Vital signs are stable and have been reviewed by me. Nursing notes were reviewed. HEENT: Atraumatic, normocephalic, pupils equal and reactive bilaterally, negative for conjunctival pallor or scleral icterus, mucous membranes moist, TMs normal bilaterally, throat clear, neck supple, nontender, trachea midline. Left posterior gum with some swelling and opening where apparent tooth extraction. No drooling or trismus noted. No meningeal signs. No hot potato voice noted. Lungs: Clear to auscultation bilaterally. No wheezes, rales, or rhonchi. Chest nontender. Normal work of breathing, no accessory muscles used. Heart: S1S2, regular rate and rhythm without overt murmur, gallops, or rubs. No JVD. No peripheral edema Abdomen: Soft, nondistended, nontender. Normoactive bowel sounds. Negative for masses or costovertebral tenderness. Skin: Intact, warm, dry. No lesions or rashes noted. Hematologic: No petechiae or purpra. Mucosa appropriate color and normal nail bed color and refill. Extremities: Atraumatic, moves all extremities per self without difficulty or deficits, negative for cords or calf pain. Neurovascular unremarkable. Neuro: Awake, alert, oriented. Cranial nerves II through XII unremarkable. Cerebellum unremarkable. Motor and sensory unremarkable throughout. Exam nonfocal. Psychiatric: Mood and affect are appropriate. Normal thought process. Answering questions appropriately. Notes: *This patient was seen and evaluated during the 2019 SARS-CoV-2 novel coronavirus pandemic period. Community viral transmission is ongoing at time of this encounter and the emergency department is operating under pandemic response procedures. After discussion and examination I advised the patient of the need to keep her socket moist, follow-up with Dr. Blas on Tuesday morning, and I will prescribe enough overnight [place] until she did talked with Dr. Blas. The patient is agreeable with the discharge plan. I have talked with the patient about today's findings, in addition to providing specific details for plan of care. Reassessment at the time of disposition demonstrates that the patient is in no acute distress. The patient is stable for discharge, counseling was provided and we discussed in great detail signs and symptoms that would prompt them to return to the Emergency Department. Medication, follow up and supportive care measures were reviewed and discussed. Voices understanding and is agreeable to plan of care. Denies any further questions or concerns at this time. Therapeutics: [place] 325/5 mg p.o. Prescription: [place] 325/5 mg p.o. every 4-6 hours #8 Impression: Dental pain Plan: 1. You were evaluated today on an emergent basis. Your complaints of left lower jaw pain after a dental extraction on Tuesday. Keep that area moist and I have given you a [place] 325/5 mg here in the emergency room and I will give you 5 more so until you can contact your dentist tomorrow. 2. You can alternate Tylenol and ibuprofen as needed for pain and fever management. 3. We encourage you to follow up with your primary care provider and/or recommended specialist in the next few days for re-evaluation and further care/management. 4. If your symptoms should worsen, new symptoms develop or any of the signs and symptoms we discussed should arise please return to the emergency room or call 911 (if needed). Definitive disposition and diagnosis as appropriate pending reevaluation and review of above. Left Lower Oral/Mouth Pain Score (Numeric/FACES): 7 - Related Data Allergies Allergy/AdvReac Type Severity Reaction Status Date / Time ketorolac [From Toradol] Allergy Itching Verified 06/06/20 14:44 tramadol Allergy Rash Verified 06/06/20 14:44 Home Meds: Home Meds Cyclobenzaprine HCl 10 mg PO BEDTIME PRN 08/29/19 [History] LORazepam [Ativan] 0.5 mg PO TID PRN 08/29/19 [History] buPROPion HCL [Bupropion HCl Sr] 450 mg PO DAILY 08/29/19 [History] lisinopriL [Zestril] 2.5 mg PO DAILY 08/29/19 [History] Fish Oil/[place]-3 Fatty Acids [Fish Oil 1,000 MG] 2 cap PO DAILY 04/14/20 [History] Acetaminophen/Codeine [Tylenol with Codeine No.3 300MG/30MG] 1 tab PO TID PRN 06/06/20 [History] Past Medical History - Past Health History Medical/Surgical History: Denies Medical/Surgical History HEENT History: Reports: Other (See Below) Other HEENT History: wears glasses/contacts Cardiovascular History: Reports: None Respiratory History: Reports: None Gastrointestinal History: Reports: Other (See Below) Other Gastrointestinal History: occasional heartburn Genitourinary History: Reports: Pyelonephritis, UTI, Recurrent, Other (See Below) Other Genitourinary History: IGA, stage 3 renal failure 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: Musculoskeletal History: Reports: Fracture Other Musculoskeletal History: hx fx wrist Neurological History: Reports: Other (See Below) Other Neuro History: Nerve pain in legs, 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 Psychiatric History: Reports: Anxiety, Depression Endocrine/Metabolic History: Reports: None Insulin Pump Model and Special Needs Caregiver: None Hematologic History: Reports: None Immunologic History: Reports: None Oncologic (Cancer) History: Reports: None Dermatologic History: Reports: None - Infectious Disease History Infectious Disease History: Reports: Chicken Pox - Past Surgical History Head Surgeries/Procedures: Reports: None HEENT Surgical History: Reports: Oral Surgery Female Surgical History: Reports: Hysterectomy Musculoskeletal Surgical History: Reports: Arthroscopic Knee Social & Family History - Family History Family Medical History: No Pertinent Family History - Caffeine Use Caffeine Use: Reports: None - Recreational Drug Use Recreational Drug Use: No ED ROS ENT - Review of Systems Review Of Systems: Comprehensive ROS is negative, except as noted in HPI. ED EXAM, ENT - Physical Exam Exam: See Below (See dictation) Course - Vital Signs Last Recorded V/S: Last Vital Signs Temp 97.5 F 10/12/20 15:19 Pulse 72 10/12/20 16:07 Resp 14 10/12/20 16:07 BP 139/71 10/12/20 16:07 Pulse Ox 99 10/12/20 16:07 - Orders/Labs/Meds Meds: Medications Discontinued Medications Generic Name Dose Route Start Last Admin Trade Name Howardq PRN Reason Stop Dose Admin Hydrocodone Bitart/Acetaminophen 1 tab 10/12/20 15:44 10/12/20 15:48 Acetaminophen/Hydrocodone 325-5 Mg Tab PO 10/12/20 15:45 1 tab ONETIME ONE Administration Departure - Departure Time of Disposition: 15:56 Disposition: Home, Self-Care 01 Condition: Good Clinical Impression: Pain, dental - Discharge Information *PRESCRIPTION DRUG MONITORING PROGRAM REVIEWED*: Yes *COPY OF PRESCRIPTION DRUG MONITORING REPORT IN PATIENT BORA: No Instructions: Tooth Pulling, Care After, Dental Dry Socket, [id number] Referrals: PCP,None [Primary Care Provider] - Forms: ED Department Discharge Additional Instructions: The following information is given to patients seen in the emergency department who are being discharged to home. This information is to outline your options for follow-up care. We provide all patients seen in our emergency department with a follow-up referral. The need for follow-up, as well as the timing and circumstances, are variable depending upon the specifics of your emergency department visit. If you don't have a primary care physician on staff, we will provide you with a referral. We always advise you to contact your personal physician following an emergency department visit to inform them of the circumstance of the visit and for follow-up with them and/or the need for any referrals to a consulting specialist. The emergency department will also refer you to a specialist when appropriate. This referral assures that you have the opportunity for follow-up care with a specialist. All of these measure are taken in an effort to provide you with optimal care, which includes your follow-up. Under all circumstances we always encourage you to contact your private physician who remains a resource for coordinating your care. When calling for follow-up care, please make the office aware that this follow-up is from your recent emergency room visit. If for any reason you are refused follow-up, please contact the [facility] Emergency Department at and asked to speak to the emergency department charge nurse. [facility] [address] [place] [address] [place] [address] Plan: 1. You were evaluated today on an emergent basis. Your complaints of left lower jaw pain after a dental extraction on Tuesday. Keep that area moist and I have given you a [place] 325/5 mg here in the emergency room and I will give you 5 more so until you can contact your dentist tomorrow. 2. You can alternate Tylenol and ibuprofen as needed for pain and fever management. 3. We encourage you to follow up with your primary care provider and/or recommended specialist in the next few days for re-evaluation and further care/management. 4. If your symptoms should worsen, new symptoms develop or any of the signs and symptoms we discussed should arise please return to the emergency room or call 911 (if needed). Sepsis Event Note (ED) - Evaluation Sepsis Screening Result: No Definite Risk - Focused Exam Vital Signs: Vital Signs Temp Pulse Resp BP Pulse Ox 10/12/20 16:07 72 14 139/71 99 10/12/20 15:19 97.5 F 99 14 120/79 98
[2020-10-12 16:09] VITALS: BP 139/71; PULSE 72
== END 2020-10-12 16:06 | disposition home or self-care (01) ==
LOC: MW.ED 14:24
DX: K08.89 Other specified disorders of teeth and supporting structures (principal); Z88.6 Allergy status to analgesic agent; Z88.5 Allergy status to narcotic agent; Z79.899 Other long term (current) drug therapy
CPT/HCPCS: 99282; A9270; 99283

== ENCOUNTER 2021-09-23 16:25 | Emergency (ER) | payer MEDICAID ==
[2021-09-23] MEDS ORDERED: Sodium Chloride 0.9% 10 ML Syringe FLUSH PRN (18:48)
[2021-09-23] MEDS ORDERED: Sodium Chloride 0.9% 2.5 ML Syringe FLUSH PRN (18:48)
[2021-09-23] MEDS ORDERED: Ondansetron 4 MG/2 ML SDV IVPUSH ONE (19:04)
[2021-09-23] MEDS ORDERED: Morphine 4 MG/ML VIAL IVPUSH ONE (19:04)
[2021-09-23 19:29] LABS: CARBON DIOXIDE,CO2 21.7 mmol/L (21.0-32.0)
[2021-09-23 21:14] VITALS: BP 127/86; PULSE 88
== END 2021-09-23 21:09 | disposition home or self-care (01) ==
LOC: MW.ED 16:25
DX: M54.50 Low back pain, unspecified (principal); Z88.5 Allergy status to narcotic agent; Z88.6 Allergy status to analgesic agent; Z79.899 Other long term (current) drug therapy
CPT/HCPCS: 36415; 74176; 80053; 81001; 81025; 83690; 85025; 96374; 96375; 99284; J2270; J2405; J3490

== ENCOUNTER 2021-10-15 08:58 | Emergency (ER) | payer MEDICAID ==
[2021-10-15] MEDS ORDERED: Ondansetron 4 MG Tab.DIS PO ONE (12:01)
[2021-10-15 12:24] LABS: CORONAVIRUS COVID-19 NAA POSITIVE (NEGATIVE); INFLUENZA A NAA NEGATIVE (NEGATIVE); INFLUENZA B NAA NEGATIVE (NEGATIVE)
[2021-10-15] MEDS ORDERED: Acetaminophen/HYDROcodone 325-5 MG Tab PO ONE (13:22)
[2021-10-15 13:44] LABS: BLOOD UREA NITROGEN,BUN 6 mg/dL (7.0-18.0); CHLORIDE,CL 103 mmol/L (98-107); GLUCOSE RANDOM 93 mg/dL (74-106); POTASSIUM,K 3.9 mmol/L (3.5-5.1); SODIUM,NA 138 mmol/L (136-145)
[2021-10-15 14:03] VITALS: BP 115/70; PULSE 76
== END 2021-10-15 14:11 | disposition home or self-care (01) ==
LOC: MW.ED 08:58
DX: U07.1 COVID-19 (principal); N18.30 Chronic kidney disease, stage 3 unspecified; Z88.5 Allergy status to narcotic agent; Z88.6 Allergy status to analgesic agent; Z79.899 Other long term (current) drug therapy
CPT/HCPCS: 0240U; 36415; 71045; 80053; 81001; 81025; 85025; 99284; A9270; 99283

== ENCOUNTER 2021-11-01 13:59 | Emergency (ER) | payer MEDICAID ==
[2021-11-01] MEDS ORDERED: Acetaminophen/oxyCODONE 325-5 MG Tab PO ONE (14:43)
[2021-11-01 16:21] VITALS: BP 118/75; PULSE 82
== END 2021-11-01 16:20 | disposition home or self-care (01) ==
LOC: MW.ED 13:59
DX: M25.562 Pain in left knee (principal); N18.30 Chronic kidney disease, stage 3 unspecified; Z90.710 Acquired absence of both cervix and uterus; Z79.899 Other long term (current) drug therapy; Z88.5 Allergy status to narcotic agent; Z88.6 Allergy status to analgesic agent
CPT/HCPCS: 73562; 93971; 99284; A9270

== ENCOUNTER 2021-11-08 13:19 | Emergency (ER) | payer MEDICAID ==
[2021-11-08 14:24] VITALS: BP 106/70; PULSE 72
== END 2021-11-08 14:23 | disposition home or self-care (01) ==
LOC: MW.ED 13:19
DX: M70.41 Prepatellar bursitis, right knee (principal); Z90.710 Acquired absence of both cervix and uterus; Z88.5 Allergy status to narcotic agent; Z88.6 Allergy status to analgesic agent; Z79.899 Other long term (current) drug therapy
CPT/HCPCS: 99283

== ENCOUNTER 2022-03-13 08:00 | Emergency (ER) | payer MEDICAID ==
[2022-03-13] MEDS ORDERED: Acetaminophen/HYDROcodone 325-5 MG Tab PO ONE (08:01)
== END 2022-03-13 16:20 ==
LOC: MW.ED 08:00
DX: S20.212A Contusion of left front wall of thorax, initial encounter (principal); X50.9XXA Other and unspecified overexertion or strenuous movements or postures, initial encounter
CPT/HCPCS: 71101; 99283; A9270

== ENCOUNTER 2022-03-17 08:02 | Emergency (ER) | payer MEDICAID ==
[2022-03-17] MEDS ORDERED: Ondansetron 4 MG Tab.DIS PO ONE (08:03)
[2022-03-17] MEDS ORDERED: HYDROmorphone 1 MG/ML Syringe IV ONE (08:51)
[2022-03-17] MEDS ORDERED: fentaNYL 100 MCG/2 ML SDV IM ONE (10:12)
== END 2022-03-17 16:40 | disposition home or self-care (01) ==
LOC: MW.ED 08:02
DX: R07.81 Pleurodynia (principal)
CPT/HCPCS: 71250; 74176; 96372; 99284; A9270; J1170; J3010; 99283

== ENCOUNTER 2024-03-11 10:23 | Emergency (ER) | payer BC ==
[2024-03-11 11:16] LABS: CORONAVIRUS COVID-19 NAA POSITIVE (NEGATIVE); INFLUENZA A NAA NEGATIVE (NEGATIVE); INFLUENZA B NAA NEGATIVE (NEGATIVE); RESPIRATORY SYNCYTIAL VIR NAA NEGATIVE (NEGATIVE)
[2024-03-11] MEDS: Sodium Chloride 0.9% 1,000 ML IV ONE (11:17)
[2024-03-11 11:18] LABS: BASOPHILS ABSOLUTE AUTO 0.02 K/uL (0.00-0.20); BASOPHILS PERCENT AUTO 0.3 % (0.0-1.0); EOSINOPHILS PERCENT AUTO 1.6 % (0.0-6.0); HEMATOCRIT 38.1 % (37.0-47.0); HEMOGLOBIN 12.8 g/dL (12.0-16.0); IMMATURE GRAN ABSOLUTE AUTO 0.01 K/uL (0.00-0.05); IMMATURE GRAN PERCENT AUTO 0.2 % (0.0-0.4); LYMPHOCYTES ABSOLUTE AUTO 2.16 K/uL (1.00-4.80); LYMPHOCYTES PERCENT AUTO 34.7 % (24.0-44.0); MEAN CORPUSCULAR HEMOGLOBIN 32.2 pg (28.0-32.0); MEAN CORPUSCULAR HGB CONC 33.6 g/dL (32.0-36.0); MEAN CORPUSCULAR VOLUME 95.7 fL (83.0-99.0); MEAN PLATELET VOLUME 10.2 fL (9.4-12.3); MONOCYTES ABSOLUTE AUTO 0.36 K/uL (0.00-0.80); MONOCYTES PERCENT AUTO 5.8 % (0.0-8.0); NEUTROPHILS ABSOLUTE AUTO 3.57 K/uL (1.80-7.70); NEUTROPHILS PERCENT AUTO 57.4 % (41.0-71.0); PLATELET COUNT,PLT 216 K/uL (150-400); RED BLOOD CELL COUNT 3.98 M/uL (4.10-5.30); WHITE BLOOD CELL COUNT,WBC 6.22 K/uL (3.9-11.3)
[2024-03-11 11:43] LABS: A/G RATIO 0.9 (0.9-1.6); ALBUMIN 3.3 g/dL (3.4-5.0); BILIRUBIN TOTAL 0.5 mg/dL (0.2-1.0); CALCIUM 8.8 mg/dL (8.5-10.1); CARBON DIOXIDE,CO2 27.6 mmol/L (21.0-32.0); CREATININE 1.1 mg/dL (0.6-1.0); EST CRCL DRUG DOSING (CG) 62.37 mL/min; POTASSIUM,K 3.9 mmol/L (3.5-5.1); PROTEIN TOTAL,TP 6.9 g/dL (6.4-8.2)
[2024-03-11 12:14] VITALS: BP 109/62; PULSE 94
== END 2024-03-11 12:13 | disposition home or self-care (01) ==
LOC: MW.ED 10:23
DX: U07.1 COVID-19 (principal); Z75.8 Other problems related to medical facilities and other health care; N18.30 Chronic kidney disease, stage 3 unspecified; Z90.710 Acquired absence of both cervix and uterus; Z79.899 Other long term (current) drug therapy; Z88.5 Allergy status to narcotic agent; Z88.8 Allergy status to other drugs, medicaments and biological substances
CPT/HCPCS: 0241U; 36415; 80053; 85025; 96360; 99283; J7030